=== PATIENT | male | born 1935 | race Caucasian/White ===

== ENCOUNTER 2016-12-15 08:09 | Inpatient (IN) | payer MEDICARE, BC ==
[2016-12-15 08:31] LABS: Glucose,Whole Blood 242 mg/dL (75-99)
[2016-12-15] MEDS ORDERED: SODIUM CHLORIDE 0.9% 1,000 ML IV ONE ×2 (08:35→12:35)
--- NOTE | 2016-12-15 08:39 | ED ---
General Adult HPI - General Chief complaint: Altered Mental Status Stated complaint: altered mental status Time Seen by Provider: 12/15/16 08:20 Source: family, RN notes reviewed Mode of arrival: EMS Limitations: altered mental status - History of Present Illness Initial comments: This is a 81-year-old male who comes to the emergency department via EMS with his son. Son states that he is here because he is altered mentally. Son states 2 weeks ago he stopped drinking cold turkey. He usually drinks a fifth a day plus a lot of beer and he stopped cold turkey on good Friday. Son states since that time he's become more more altered and weaker and weaker. He states he can barely walk around the house at this point. Patient is confused does not know what day it is does not understand why they come to the hospital. Son states he is also not eating or drinking and has lost about 20 pounds in a period of time. Son states he has not had any falls that he knows of. Patient has not had any difficulty breathing there's been no fevers there's been no vomiting or diarrhea that he knows of. - Related Data Home Medications Medication Instructions Recorded Confirmed Gabapentin [Neurontin] 100 mg PO BID 12/21/13 12/15/16 Isosorbide Mononitrate [Imdur] 30 mg PO DAILY 12/21/13 12/15/16 glyBURIDE [Diabeta] 2.5 mg PO AC-BID 12/21/13 12/15/16 Aspirin EC [Ecotrin Low Dose] 81 mg PO DAILY 05/29/16 12/15/16 Vit A,C & E/Lutein/Minerals 1 tab PO DAILY 05/29/16 12/15/16 [Ocuvite with Lutein Tablet] amLODIPine BESYLATE/BENAZEPRIL 1 cap PO DAILY 05/29/16 12/15/16 [Lotrel 10-40 mg Capsule] Allergies Allergy/AdvReac Type Severity Reaction Status Date / Time sulfamethoxazole Allergy Severe Anaphylaxis Verified 12/15/16 09:06 [From Bactrim] trimethoprim [From Bactrim] Allergy Severe Anaphylaxis Verified 12/15/16 09:06 Review of Systems ROS Statement: Those systems with pertinent positive or pertinent negative responses have been documented in the HPI. ROS Other: All systems not noted in ROS Statement are negative. Past Medical History Past Medical History: Coronary Artery Disease (CAD), Chest Pain / Angina, Diabetes Mellitus, Deep Vein Thrombosis (DVT), Eye Disorder, GERD/Reflux, Hearing Disorder / Deafness, Memory Impairment, Myocardial Infarction ([place]), Osteoarthritis (OA), Pneumonia, Prostate Disorder, Vascular Disorder Additional Past Medical History / Comment(s): neuropathy, sinusitis, hernia Last Myocardial Infarction Date:: 11/28/13 History of Any Multi-Drug Resistant Organisms: None Reported Past Surgical History: Hernia Repair Additional Past Surgical History / Comment(s): 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 toe right foot, vein surgery both legs for phlebitis Past Anesthesia/Blood Transfusion Reactions: No Reported Reaction Past Psychological History: No Psychological Hx Reported Smoking Status: Former smoker Past Alcohol Use History: Abuse, Daily Past Drug Use History: None Reported - Past Family History Mother Family Medical History: Cancer Father Family Medical History: Unable to Obtain General Exam - General Exam Comments Initial Comments: GENERAL: Patient is well-developed and well-nourished. Patient is nontoxic and well- hydrated and is in no acute distress. ENT: Neck is soft and supple. No significant lymphadenopathy is noted. Oropharynx is clear. Dry mucous membranes. Neck has full range of motion without eliciting any pain. EYES: The sclera were anicteric and conjunctiva were pink and moist. Extraocular movements were intact and pupils were equal round and reactive to light. Eyelids were unremarkable. PULMONARY: Unlabored respirations. Good breath sounds bilaterally. No audible rales rhonchi or wheezing was noted. CARDIOVASCULAR: There is a regular rate and rhythm without any murmurs gallops or rubs. ABDOMEN: Soft and nontender with normal bowel sounds. No palpable organomegaly was noted. There is no palpable pulsatile mass. SKIN: Skin is clear with no lesions or rashes and otherwise unremarkable. NEUROLOGIC: Patient is alert and oriented 1. Cranial nerves II through XII are grossly intact. Motor and sensory are also intact. Normal speech, volume and content. Symmetrical smile. MUSCULOSKELETAL: Normal extremities with adequate strength and full range of motion. No lower extremity swelling or edema. No calf tenderness. LYMPHATICS: No significant lymphadenopathy is noted PSYCHIATRIC: Unable to evaluate patient does answer questions accurately. Limitations: altered mental status Course Vital Signs 12/15/16 12/15/16 12/15/16 08:18 09:06 10:05 Temperature 97.1 F L Pulse Rate 70 68 60 Respiratory 18 18 18 Rate Blood Pressure 152/70 175/77 170/77 O2 Sat by Pulse 95 99 99 Oximetry 12/15/16 12:09 Temperature 97.9 F Pulse Rate 96 Respiratory 18 Rate Blood Pressure 158/77 O2 Sat by Pulse 98 Oximetry Procedures - Catheter Insertion (Urinary) Indications: monitor urine output Prophylactic Antibiotics Given: No Bladder Scan/US before Catheterization: No Preparation: Povidone-Iodine Type of Catheter Inserted: 2 way Catheter [place] Size: 18 Catheter Balloon Size (mLs): 10 Results: successfully catheterized-immediate flow Patient Tolerated Procedure: well Complications: pain Medical Decision Making - Medical Decision Making EKG shows a sinus rhythm at 71 bpm MS interval is prolonged at 160 QRS is 88 QT interval 352 QTC is 382. Patient's EKG shows no ST segment elevation or depression or T wave abnormalities are noted Chest x-ray shows a widened mediastinum Patient's CAT scan shows findings compatible with a neoplastic process extensive conglomerate of mediastinal lymphadenopathy extending from the thoracic and went down through the subcarinal and paraesophageal region measuring up to 13.4 cm there is also bilateral subclavicular prevascular space and left lower paraesophageal lymphadenopathy there is also a left lower lobe pulmonary mass and a couple lower lobe metastatic pulmonary nodules osseous metastatic disease with soft tissue replacing the T8 vertebral body She was given a banana bag because of his alcoholism. Patient also was given fluids because of the high calcium. I spoke with Dr. Rahman she agreed to admit the patient I admitted the patient I consult with oncology - Lab Data Result diagrams: 12/15/16 08:25 12/15/16 09:55 Lab Results 12/15/16 12/15/16 12/15/16 Range/Units 08:25 08:25 08:25 WBC 10.0 (3.8-10.6) k/uL RBC 5.81 (4.30-5.90) m/uL Hgb 17.1 (13.0-17.5) gm/dL Hct 50.5 (39.0-53.0) % MCV 87.0 (80.0-100.0) fL MCH 29.4 (25.0-35.0) pg MCHC 33.8 (31.0-37.0) g/dL RDW 13.2 (11.5-15.5) % Plt Count 189 (150-450) k/uL Neutrophils % 82 % Lymphocytes % 12 % Monocytes % 4 % Eosinophils % 1 % Basophils % 1 % Neutrophils # 8.2 H (1.3-7.7) k/uL Lymphocytes # 1.2 (1.0-4.8) k/uL Monocytes # 0.4 (0-1.0) k/uL Eosinophils # 0.1 (0-0.7) k/uL Basophils # 0.1 (0-0.2) k/uL PT 11.0 (9.0-12.0) sec INR 1.1 (<1.1) APTT 20.3 L (22.0-30.0) sec Sodium (137-145) mmol/L Potassium (3.5-5.1) mmol/L Chloride (98-107) mmol/L Carbon Dioxide (22-30) mmol/L Anion Gap mmol/L BUN (9-20) mg/dL Creatinine (0.66-1.25) mg/dL Est GFR (MDRD) Af Amer (>60 ml/min/1.73 sqM) Est GFR (MDRD) Non-Af (>60 ml/min/1.73 sqM) Glucose (74-99) mg/dL POC Glucose (mg/dL) (75-99) mg/dL POC Glu Valuation Consultant ID Calcium (8.4-10.2) mg/dL Magnesium (1.6-2.3) mg/dL Total Bilirubin (0.2-1.3) mg/dL AST (17-59) U/L ALT (21-72) U/L Alkaline Phosphatase (38-126) U/L Ammonia (<30) umol/L Total Creatine Kinase 40 L (55-170) U/L CK-MB (CK-2) 1.0 (0.0-2.4) ng/mL CK-MB (CK-2) Rel Index 2.5 Troponin I <0.012 (0.000-0.034) ng/mL Total Protein (6.3-8.2) g/dL Albumin (3.5-5.0) g/dL Urine Color Urine Appearance (Clear) Urine pH (5.0-8.0) Ur Specific [place] (1.001-1.035) Urine Protein (Negative) Urine Glucose (UA) (Negative) Urine Ketones (Negative) Urine Blood (Negative) Urine Nitrite (Negative) Urine Bilirubin (Negative) Urine Urobilinogen (<2.0) mg/dL Ur Leukocyte Esterase (Negative) Urine RBC (0-5) /hpf Urine WBC (0-5) /hpf Urine Bacteria (None) /hpf Urine Mucus (None) /hpf Urine Opiates Screen (NotDetected) Ur Oxycodone Screen (NotDetected) Urine Methadone Screen (NotDetected) Ur Propoxyphene Screen (NotDetected) Ur Barbiturates Screen (NotDetected) U Tricyclic Antidepress (NotDetected) Ur Phencyclidine Scrn (NotDetected) Ur Amphetamines Screen (NotDetected) U Methamphetamines Scrn (NotDetected) U Benzodiazepines Scrn (NotDetected) Urine Cocaine Screen (NotDetected) U Marijuana (THC) Screen (NotDetected) 12/15/16 12/15/16 12/15/16 Range/Units 08:30 09:04 09:55 WBC (3.8-10.6) k/uL RBC (4.30-5.90) m/uL Hgb (13.0-17.5) gm/dL Hct (39.0-53.0) % MCV (80.0-100.0) fL MCH (25.0-35.0) pg MCHC (31.0-37.0) g/dL RDW (11.5-15.5) % Plt Count (150-450) k/uL Neutrophils % % Lymphocytes % % Monocytes % % Eosinophils % % Basophils % % Neutrophils # (1.3-7.7) k/uL Lymphocytes # (1.0-4.8) k/uL Monocytes # (0-1.0) k/uL Eosinophils # (0-0.7) k/uL Basophils # (0-0.2) k/uL PT (9.0-12.0) sec INR (<1.1) APTT (22.0-30.0) sec Sodium (137-145) mmol/L Potassium (3.5-5.1) mmol/L Chloride (98-107) mmol/L Carbon Dioxide (22-30) mmol/L Anion Gap mmol/L BUN (9-20) mg/dL Creatinine (0.66-1.25) mg/dL Est GFR (MDRD) Af Amer (>60 ml/min/1.73 sqM) Est GFR (MDRD) Non-Af (>60 ml/min/1.73 sqM) Glucose (74-99) mg/dL POC Glucose (mg/dL) 242 H (75-99) mg/dL POC Glu Valuation Consultant ID [place], Angella Calcium (8.4-10.2) mg/dL Magnesium (1.6-2.3) mg/dL Total Bilirubin (0.2-1.3) mg/dL AST (17-59) U/L ALT (21-72) U/L Alkaline Phosphatase (38-126) U/L Ammonia <9 (<30) umol/L Total Creatine Kinase (55-170) U/L CK-MB (CK-2) (0.0-2.4) ng/mL CK-MB (CK-2) Rel Index Troponin I (0.000-0.034) ng/mL Total Protein (6.3-8.2) g/dL Albumin (3.5-5.0) g/dL Urine Color Yellow Urine Appearance Clear (Clear) Urine pH 5.0 (5.0-8.0) Ur Specific [place] 1.021 (1.001-1.035) Urine Protein 1+ H (Negative) Urine Glucose (UA) 2+ H (Negative) Urine Ketones Trace H (Negative) Urine Blood Moderate H (Negative) Urine Nitrite Negative (Negative) Urine Bilirubin Negative (Negative) Urine Urobilinogen <2.0 (<2.0) mg/dL Ur Leukocyte Esterase Negative (Negative) Urine RBC 21 H (0-5) /hpf Urine WBC 4 (0-5) /hpf Urine Bacteria Rare H (None) /hpf Urine Mucus Rare H (None) /hpf Urine Opiates Screen Not Detected (NotDetected) Ur Oxycodone Screen Not Detected (NotDetected) Urine Methadone Screen Not Detected (NotDetected) Ur Propoxyphene Screen Not Detected (NotDetected) Ur Barbiturates Screen Not Detected (NotDetected) U Tricyclic Antidepress Not Detected (NotDetected) Ur Phencyclidine Scrn Not Detected (NotDetected) Ur Amphetamines Screen Not Detected (NotDetected) U Methamphetamines Scrn Not Detected (NotDetected) U Benzodiazepines Scrn Not Detected (NotDetected) Urine Cocaine Screen Not Detected (NotDetected) U Marijuana (THC) Screen Not Detected (NotDetected) 12/15/16 Range/Units 09:55 WBC (3.8-10.6) k/uL RBC (4.30-5.90) m/uL Hgb (13.0-17.5) gm/dL Hct (39.0-53.0) % MCV (80.0-100.0) fL MCH (25.0-35.0) pg MCHC (31.0-37.0) g/dL RDW (11.5-15.5) % Plt Count (150-450) k/uL Neutrophils % % Lymphocytes % % Monocytes % % Eosinophils % % Basophils % % Neutrophils # (1.3-7.7) k/uL Lymphocytes # (1.0-4.8) k/uL Monocytes # (0-1.0) k/uL Eosinophils # (0-0.7) k/uL Basophils # (0-0.2) k/uL PT (9.0-12.0) sec INR (<1.1) APTT (22.0-30.0) sec Sodium 142 (137-145) mmol/L Potassium 4.4 (3.5-5.1) mmol/L Chloride 107 (98-107) mmol/L Carbon Dioxide 27 (22-30) mmol/L Anion Gap 8 mmol/L BUN 47 H (9-20) mg/dL Creatinine 0.85 (0.66-1.25) mg/dL Est GFR (MDRD) Af Amer >60 (>60 ml/min/1.73 sqM) Est GFR (MDRD) Non-Af >60 (>60 ml/min/1.73 sqM) Glucose 231 H (74-99) mg/dL POC Glucose (mg/dL) (75-99) mg/dL POC Glu Valuation Consultant ID Calcium 13.8 H* (8.4-10.2) mg/dL Magnesium 1.9 (1.6-2.3) mg/dL Total Bilirubin 1.4 H (0.2-1.3) mg/dL AST 21 (17-59) U/L ALT 24 (21-72) U/L Alkaline Phosphatase 136 H (38-126) U/L Ammonia (<30) umol/L Total Creatine Kinase (55-170) U/L CK-MB (CK-2) (0.0-2.4) ng/mL CK-MB (CK-2) Rel Index Troponin I (0.000-0.034) ng/mL Total Protein 7.5 (6.3-8.2) g/dL Albumin 3.8 (3.5-5.0) g/dL Urine Color Urine Appearance (Clear) Urine pH (5.0-8.0) Ur Specific [place] (1.001-1.035) Urine Protein (Negative) Urine Glucose (UA) (Negative) Urine Ketones (Negative) Urine Blood (Negative) Urine Nitrite (Negative) Urine Bilirubin (Negative) Urine Urobilinogen (<2.0) mg/dL Ur Leukocyte Esterase (Negative) Urine RBC (0-5) /hpf Urine WBC (0-5) /hpf Urine Bacteria (None) /hpf Urine Mucus (None) /hpf Urine Opiates Screen (NotDetected) Ur Oxycodone Screen (NotDetected) Urine Methadone Screen (NotDetected) Ur Propoxyphene Screen (NotDetected) Ur Barbiturates Screen (NotDetected) U Tricyclic Antidepress (NotDetected) Ur Phencyclidine Scrn (NotDetected) Ur Amphetamines Screen (NotDetected) U Methamphetamines Scrn (NotDetected) U Benzodiazepines Scrn (NotDetected) Urine Cocaine Screen (NotDetected) U Marijuana (THC) Screen (NotDetected) Disposition Clinical Impression: Metastatic cancer to lung, Altered mental status, Hypercalcemia Disposition: ADMITTED IP TO THIS [facility] Time of Disposition: 12:33
[2016-12-15] MEDS ORDERED: SODIUM CHLORIDE 0.9% 1,000 ML with MVI, ADULT NO.4 WITH VIT K 10 ML, THIAMINE 100 MG, F... IV ONE ×4 (08:45)
[2016-12-15 09:13] LABS: Basophils # (A) 0.1 k/uL (0-0.2); Basophils % (A) 1 %; CH 30.1; CHCM 34.8; Eosinophils # (A) 0.1 k/uL (0-0.7); Eosinophils % (A) 1 %; HCT 50.5 % (39.0-53.0); HDW 3.21; HGB 17.1 gm/dL (13.0-17.5); Luc # (Auto) 0.13; Luc % (Auto) 1; Lymphocytes # (A) 1.2 k/uL (1.0-4.8); Lymphocytes % (A) 12 %; MCH 29.4 pg (25.0-35.0); MCHC 33.8 g/dL (31.0-37.0); Mean Platelet Volume 7.3; Monocytes # (A) 0.4 k/uL (0-1.0); Monocytes % (A) 4 %; Neutrophils # (A) 8.2 k/uL (1.3-7.7); Neutrophils % (A) 82 %; RBC 5.81 m/uL (4.30-5.90); RDW 13.2 % (11.5-15.5); WBC (Perox) 10.24
[2016-12-15 09:15] LABS: Appearance,Urine Clear (Clear); Bacteria,Urine Rare /hpf; Bilirubin,Urine Negative (Negative); Glucose,Urine (UA) 2+ (Negative); Ketones,Urine Trace (Negative); Leukocyte Esterase,Urine Negative (Negative); Mucus,Urine Rare /hpf; Nitrite,Urine Negative (Negative); Particle Count 3510; Protein,Urine 1+ (Negative); RBC,Urine 21 /hpf (0-5); Specific Gravity,Urine 1.021 (1.001-1.035); UA Billing (MACRO vs. MICRO) MICRO; Urobilinogen,Urine <2.0 mg/dL (<2.0); WBC,Urine 4 /hpf (0-5)
[2016-12-15 09:22] LABS: INR 1.1 (<1.1); Partial Thromboplastin Time 20.3 sec (22.0-30.0)
[2016-12-15 09:37] LABS: Creatine Kinase 40 U/L (55-170)
--- NOTE | 2016-12-15 09:48 | CT ---
EXAMINATION TYPE: CT brain wo con DATE OF EXAM: 12/15/2016 9:39 AM HISTORY: Altered mental changes, history of dementia. CT DLP: 1072.3 mGycm. Automated Exposure Contr ol for Dose Reduction was Utilized. TECHNIQUE: CT scan of the head is performed without contrast. COMPARISON: CT brain May 29, 2016. FINDINGS: There is no acute intracranial hemorrhage or midline shift identified. There is diffuse v entricular and sulcal prominence consistent with diffuse age-related cerebral atrophy. There is low- attenuation in the periventricular white matter consistent with chronic small vessel ischemic change. Mild to moderate mucosal thickening visualized portion of right maxillary sinus remains present. Th e globes are intact and the remainder visualized sinuses are clear. Soft tissue density bilateral e xternal auditory canals is felt to reflect cerumen similar to prior study. IMPRESSION: No acute intracranial hemorrhage or midline shift. There is mild to moderate diffuse ag e-related cerebral atrophy and chronic small vessel ischemic change redemonstrated without significan t interval change.
[2016-12-15 09:50] LABS: Troponin I <0.012 ng/mL (0.000-0.034)
[2016-12-15 10:14] LABS: ALT 24 U/L (21-72); AST 21 U/L (17-59); Alkaline Phosphatase 136 U/L (38-126); Anion Gap 8 mmol/L; Blood Urea Nitrogen 47 mg/dL (9-20); Carbon Dioxide 27 mmol/L (22-30); Chloride 107 mmol/L (98-107); Glucose 231 mg/dL (74-99); Magnesium 1.9 mg/dL (1.6-2.3); Non-African American GFR(MDRD) >60 (>60 ml/min/1.73 sqM); Potassium 4.4 mmol/L (3.5-5.1); Sodium 142 mmol/L (137-145); Total Bilirubin 1.4 mg/dL (0.2-1.3); Total Protein 7.5 g/dL (6.3-8.2)
--- NOTE | 2016-12-15 10:15 | XR ---
EXAMINATION TYPE: XR chest 2V DATE OF EXAM: 12/15/2016 9:55 AM COMPARISON: 11/29/2013 HISTORY: 81-year-old male altered mental status, confusion TECHNIQUE: Frontal and lateral views FINDINGS: Heart remains upper limits of normal in size. Pulmonary vasculature within normal limits. Mild diffus e interstitial prominence is chronic., Similar to prior. There is increased opacity along the medial right suprahilar region. No pleural effusion. IMPRESSION: Increased opacity along the medial right suprahilar region could be projectional. Correlate for possi ble infiltrate. Follow up after any potential treatment to reassess. If the finding persists, contras t-enhanced CT chest can be performed.
[2016-12-15 10:20] LABS: Calcium 13.8 mg/dL (8.4-10.2)
[2016-12-15] MEDS ORDERED: RX INFO: IV CONTRAST WAS GIVEN 1 EACH MISC MISCELLANE PRN (10:25)
--- NOTE | 2016-12-15 12:12 | CT ---
EXAMINATION TYPE: CT chest w con DATE OF EXAM: 12/15/2016 11:53 AM COMPARISON: 11/27/2013 HISTORY: 81-year-old male with pain and Cough TECHNIQUE: Contiguous axial scanning of the chest after the administration of 100 mL of Omnipaque 300 . Coronal/sagittal reconstructions performed. CT DLP: 499.5mGycm. Automatic exposure control utilized for a dose reduction. FINDINGS: The heart is borderline enlarged without pericardial effusion. Extensive coronary vessel calcificatio ns are present and are a marker for coronary artery disease. Ascending aorta is ectatic at 3.8 cm with conventional arch vessel branching anatomy and mild atheros clerotic calcifications throughout. There is mildly enlarged caliber to the main right and left pulmonary arteries that 2.6 cm each. There is bilateral supraclavicular lymphadenopathy measuring up to 2.1 cm and conglomerate mediastina l lymphadenopathy extending from the thoracic inlet, to the right hilum, down through the subcarinal and paraesophageal level. The conglomerate duy mass measures up to 13.4 cm craniocaudal, 7.7 cm wid e, and up to 6.0 cm AP. There is prevascular space lymphadenopathy measuring up to 1.6 cm and lower l eft paraesophageal lymphadenopathy measuring up to 1.9 cm. Mild narrowing of the right mainstem bronchus, right upper lobe bronchus, bronchus intermedius could be secondary to extrinsic mass effect. Lobulated mass within the superior segment right lower lobe contiguous with the infrahilar region brian sures 4.8 x 2.5 cm. Additional peripheral pulmonary nodule in the right lower lobe measures 7 mm and is new. A subtle 3 m m pulmonary nodule at the left base is noted. Nodular thickening to the left adrenal gland appears 7 present on 11/27/2013. Prominent dependent atelectasis is present. No herminia consolidation or pleural effusion. Bones: Endplate spondylosis throughout the thoracic spine. Soft tissue replacement of the T8 vertebra l body with some thinning and erosion of the superior and inferior endplates. IMPRESSION: 1. The radiographic finding is compatible with neoplastic process. There is extensive conglomerate me diastinal lymphadenopathy extending from the thoracic inlet down through the subcarinal and paraesoph ageal region measuring up to 13.4 cm craniocaudal. Additional bilateral supraclavicular, prevascular space, and lower left paraesophageal lymphadenopathy is present. Small cell lung cancer is high in th e differential. Extrinsic mass effect mildly narrows the right-sided airways. 2. 4.8 cm superior segment left lower lobe pulmonary mass and a couple lower lobe metastatic pulmonar y nodules measuring up to 7 mm. 3. Osseous metastatic disease with soft tissue replacing the T8 vertebral body. 4. Nodular thickening of the left adrenal gland appears to be chronic dating back to 11/27/2013.
[2016-12-15] MEDS ORDERED: ENALAPRILAT 1.25 MG/ML 1 ML VIAL IVP STA (13:08)
[2016-12-15] MEDS ORDERED: LORazepam 2 MG/ML SYRINGE IV STA ×2 (13:38→14:05)
[2016-12-15] MEDS ORDERED: LORazepam 2 MG/ML SYRINGE IV PRN ×2 (15:30)
[2016-12-15] MEDS ORDERED: hydrALAZINE HCL 20 MG/ML 1 ML VIAL IVP PRN (15:31)
--- NOTE | 2016-12-15 15:34 | P.CNPUL ---
History of Present Illness Consult date: 12/15/16 Reason for consult: lung mass, abnormal CXR/CT Chief complaint: Altered mental status History of present illness: This is an 81-year-old gentleman who presented emergency department for altered mental status. The patient's and son are present to provide further history. The patient apparently drinks a fifth a day plus beer. The patient apparently stopped drinking cold turkey 2 weeks ago. Per the patient's he did have a few drinks this past week as well. Per the family the patient has lost 20 pounds in over 2 weeks. He has been able to eat or drink anything. The patient is extremely somnolent at this time. He is nonverbal and not answering questions. He is just staring off into space. In the emergency room the patient had a chest x-ray which showed right medial suprahilar opacity. He underwent subsequent CT of the chest. Which showed mild cardiomegaly, extensive conglomerate mediastinal lymphadenopathy, bilateral supraclavicular lymphadenopathy, mass effect on the right mainstem bronchus, osseous metastatic disease with soft tissue replacing T8 vertebral body. The patient is a former smoker. He apparently quit 20 years ago. He used to smoke 2 packs per day for 37 years. Review of Systems All systems: negative Past Medical History Past Medical History: Coronary Artery Disease (CAD), Chest Pain / Angina, Diabetes Mellitus, Deep Vein Thrombosis (DVT), Eye Disorder, GERD/Reflux, Hearing Disorder / Deafness, Memory Impairment, Myocardial Infarction ([place]), Osteoarthritis (OA), Pneumonia, Prostate Disorder, Vascular Disorder Additional Past Medical History / Comment(s): neuropathy, sinusitis, hernia Last Myocardial Infarction Date:: 11/28/13 History of Any Multi-Drug Resistant Organisms: None Reported Past Surgical History: Hernia Repair Additional Past Surgical History / Comment(s): 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 toe right foot, vein surgery both legs for phlebitis Past Anesthesia/Blood Transfusion Reactions: No Reported Reaction Past Psychological History: No Psychological Hx Reported Smoking Status: Former smoker Past Alcohol Use History: Abuse, Daily Past Drug Use History: None Reported - Past Family History Mother Family Medical History: Cancer Father Family Medical History: Unable to Obtain Medications and Allergies Home Medications Medication Instructions Recorded Confirmed Type Gabapentin [Neurontin] 100 mg PO BID 12/21/13 12/15/16 History Isosorbide Mononitrate [Imdur] 30 mg PO DAILY 12/21/13 12/15/16 History glyBURIDE [Diabeta] 2.5 mg PO AC-BID 12/21/13 12/15/16 History Aspirin EC [Ecotrin Low Dose] 81 mg PO DAILY 05/29/16 12/15/16 History Vit A,C & E/Lutein/Minerals 1 tab PO DAILY 05/29/16 12/15/16 History [Ocuvite with Lutein Tablet] amLODIPine BESYLATE/BENAZEPRIL 1 cap PO DAILY 05/29/16 12/15/16 History [Lotrel 10-40 mg Capsule] Allergies Allergy/AdvReac Type Severity Reaction Status Date / Time sulfamethoxazole Allergy Severe Anaphylaxis Verified 12/15/16 09:06 [From Bactrim] trimethoprim [From Bactrim] Allergy Severe Anaphylaxis Verified 12/15/16 09:06 Physical Exam Osteopathic Statement: *. No significant issues noted on an osteopathic structural exam other than those noted in the History and Physical/Consult. Vitals: Vital Signs Pulse Resp BP Pulse Ox 12/15/16 14:09 85 18 184/91 99 12/15/16 12:55 176/82 Gen.: Patient is somnolent and appears to be actively going through DTs Cardiovascular: Regular rate and rhythm, S1/S2 Lungs: Diminished breath sounds bilaterally no wheezes rales or rhonchi Abdomen: Soft nontender nondistended positive bowel sounds Extremities no edema Results - Laboratory Findings CBC and BMP: 12/15/16 08:25 12/15/16 09:55 PT/INR, D-dimer PT 11.0 sec (9.0-12.0) 12/15/16 08:25 INR 1.1 (<1.1) 12/15/16 08:25 - Diagnostic Findings Chest x-ray: report reviewed, image reviewed CT scan - chest: report reviewed, image reviewed Assessment and Plan Plan: Toxic metabolic encephalopathy Active delirium tremens Extensive conglomerate mediastinal lymphadenopathy Extrinsic mass effect on the right mainstem bronchus Left lower lobe pulmonary mass Osseous metastatic disease of T8 vertebral body Alcohol abuse Former tobacco abuse Starvation ketosis 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 Hyperglycemia Failure to thrive O2 to maintain saturation greater than or equal to 88% CIWA protocol Banana bag daily We will check CT of the abdomen and pelvis, bone scan We will need to discuss with interventional radiology the best place for biopsy. It appears at this time as the least invasive place would be the supraclavicular lymphadenopathy. Patient is too unstable for bronchoscopy at this time IV fluid hydration Consult oncology Swallow evaluation can be done when patient's mental status improves, NPO for now Check ionized calcium GI and DVT prophylaxis Family is updated on findings and patient's condition. All questions are answered and they are agreeable to the plan of care at this time.
[2016-12-15] MEDS: amLODIPine 10 MG TAB PO SCH (15:36)
[2016-12-15] MEDS: ASPIRIN 81 MG CHEW PO SCH (15:36)
[2016-12-15 16:04] VITALS: BMI 22.4
--- NOTE | 2016-12-15 17:09 | CT ---
EXAMINATION TYPE: CT abdomen pelvis wo con DATE OF EXAM: 12/15/2016 4:40 PM COMPARISON: Correlation CT chest 12/15/2016 HISTORY: 81-year-old male Assess for metastases. CT DLP: 609.20 mGycm. Automated exposure control for dose reduction was used. TECHNIQUE: Contiguous axial scanning of the abdomen and pelvis without IV contrast. Coronal and sagit shane reconstructions performed. FINDINGS: The thoracic findings were reported separately, earlier today. There may be developing trace effusion s. Lack of IV contrast limits assessment of the solid abdominal viscera, lymph nodes, and vascular struc tures. Noncontrast appearance of the liver, gallbladder, kidneys, and pancreas show no gross abnormality. Mild bilateral perinephric stranding probably senescent change. There is some residual contrast seen being excreted by the kidneys. The spleen is upper limits of normal in size at 13.6 cm. Mild thickening of the right adrenal gland without discrete nodularity. Nodular thickening of the lef t adrenal gland appears to have been present on the 11/27/2013 CT. Moderate atherosclerotic changes throughout the abdominal aorta and iliac arteries. Normal appendix. No dilated small bowel, free fluid, or free air. No mesenteric or retroperitoneal ly mphadenopathy seen. Scattered mild stool. There is diverticulosis of the junction of the descending and sigmoid colon wit hout evidence for acute diverticulitis. There is thick walled and trabeculated bladder filled with contrast. A Ferrer catheter is also in plac e. Some nondependent bladder likely relates to instrumentation. Prostate gland is enlarged measuring 5.7 cm wide. Moderate stool within the rectum. No abnormal fluid collection in the pelvis or pelvic lymphadenopathy seen. Bones: There is a lytic destructive lesion within the left iliac bone measuring approximately 4.8 x 5 .1 cm extending into the iliacus and gluteus minimus soft tissues. This may be the easiest site for p ercutaneous tissue sampling. T8 vertebral body destructive soft tissue lesion again demonstrated. IMPRESSION: 1. An additional osseous metastatic focus measuring 5.1 cm destroying the central portion of the lef t iliac bone with extraosseous soft tissue extension. This may serve as the easiest site for percutan eous tissue sampling. 2. The lack of IV contrast diminishes the sensitivity of the exam. 3. Again, nodularity of the left adrenal gland appears to have been present back to the 11/27/2013 CT scan. 4. Prostatomegaly (5.7 cm wide) with thickened and trabeculated bladder wall suggesting chronic blad rachel outlet obstruction and BPH.
[2016-12-15 18:04] LABS: Glucose,Whole Blood 124 mg/dL (75-99)
[2016-12-15] MEDS: INSULIN LISPRO (humaLOG) 300 UNIT/3 ML VIAL SQ SCH ×2 (18:04→21:58)
[2016-12-15] MEDS: HEPARIN SODIUM,PORCINE 5,000 UNIT/ML 1 ML VIAL SQ SCH ×2 (18:05→23:31)
[2016-12-15] MEDS: 1: MVI, ADULT NO.4 WITH VIT K 10 ML, THIAMINE 100 MG, FOLIC ACID 1 MG in SODIUM CHLORIDE IV SCH ×8 (18:06→21:01)
[2016-12-15] MEDS ORDERED: SODIUM CHLORIDE 0.9% 1,000 ML BAG ONE (18:06)
--- NOTE | 2016-12-15 19:27 | P.HPIM ---
History of Present Illness H&P Date: 12/15/16 Chief Complaint: Mental status changes This is a pleasant 81-year-old lady patient of Dr. shantanu yoo. He has underlying history of diabetes mellitus type 2, CAD, BPH, who has chronic alcoholism. Apparently he is at baseline until he had quit alcohol completely 2 weeks ago December 04 for unknown reasons, patient has not had any blood, since then including beer. He was noticed by family to have altered mentation to include hallucinations this will, and auditory hallucinations, diminished appetite and increasing weakness. Patient had not eating for the past one to 4 hours, and only has slept 24 hours within the past 7 days, weight loss of 20 pounds, In the emergency room he was seen secondary to the acute dehydration, he was found to be mentally altered with hypercalcemia, dehydration, CAT scan of the chest showed significant abnormality include of 4.8 cm left upper lobe pulmonary mass with lower lobe metastatic pulmonary nodules up to 7 mm, conglomerate mediastinal lymph node extending from thoracic inlet down to subcarina and paraesophageal region measuring 13.4 cm craniocaudal small cell carcinoma is high in the differential, extrinsic mass effect mild did not O's right-sided airway or she is metastatic disease with soft tissue replacing T8 vertebral body brain CT shows mild to moderate diffuse age-related cerebral atrophy without any significant interval changes epi noted CT abdomen and pelvis shows additional all she is metastatic lesion 5.1 cm destroying the central portion of the left iliac bone with extra osseous soft tissue extension him a also 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 Yanes and Dr. Morales. Patient was started on ciwa protocol, Seroquel 25 hs for hallucinations, and IV Aredia for hypercalcemia IV Lasix for forced diuresis , iv hydration Review of Systems ROS unobtainable: due to mental status Constitutional: Reports weight loss Ears, nose, mouth and throat: Reports as per HPI Cardiovascular: Reports as per HPI Respiratory: Reports as per HPI Gastrointestinal: Reports as per HPI Genitourinary: Reports as per HPI Musculoskeletal: Reports as per HPI Integumentary: Reports as per HPI Neurological: Reports as per HPI, Reports memory loss Psychiatric: Reports anxiety, Reports change in sleep habits, Reports confusion , Reports disorientation, Reports hallucinations, Reports insomnia, Reports irritability, Reports mood swings, Reports sleep disturbances, Denies as per HPI , Denies anhedonia, Denies anxiety attacks, Denies change in appetite, Denies change in libido, Denies depression, Denies difficulty concentrating, Denies hopelessness, Denies hypersomnia, Denies memory loss, Denies paranoia, Denies sadness/tearfulness, Denies suicidal ideation Endocrine: Reports as per HPI, Denies cold intolerance, Denies deepening of the voice, Denies excessive sweating, Denies excessive thirst, Denies fatigue, Denies flushing, Denies heat intolerance, Denies high blood sugars, Denies increase in ring/shoe/hat size, Denies low blood sugars, Denies nocturia, Denies palpitations, Denies polydipsia, Denies polyphagia, Denies polyuria, Denies proptosis, Denies recent glucocorticoid use, Denies thyroid mass, Denies weight change Hematologic/Lymphatic: Denies as per HPI, Denies easy bleeding, Denies easy bruising, Denies lymphadenopathy, Denies lymphedema, Denies thrombophilia Allergic/Immunologic: Reports as per HPI, Denies allergic rhinitis, Denies anaphylaxis, Denies angioedema, Denies gluten intolerance, Denies persistent infections, Denies seasonal allergies, Denies urticaria, Denies wheezing Past Medical History Past Medical History: Coronary Artery Disease (CAD), Chest Pain / Angina, Diabetes Mellitus, Deep Vein Thrombosis (DVT), Eye Disorder, GERD/Reflux, Hearing Disorder / Deafness, Memory Impairment, Myocardial Infarction (LA), Osteoarthritis (OA), Pneumonia, Prostate Disorder, Vascular Disorder Additional Past Medical History / Comment(s): neuropathy, sinusitis, hernia Last Myocardial Infarction Date:: 11/28/13 History of Any Multi-Drug Resistant Organisms: None Reported Past Surgical History: Hernia Repair Additional Past Surgical History / Comment(s): 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 toe right foot, vein surgery both legs for phlebitis Past Anesthesia/Blood Transfusion Reactions: No Reported Reaction Date of Last Stent Placement:: November 2013 Past Psychological History: No Psychological Hx Reported Smoking Status: Former smoker Past Alcohol Use History: Abuse, Daily Past Drug Use History: None Reported - Past Family History Mother Family Medical History: Cancer Father Family Medical History: Congestive Heart Failure (CHF), CVA/TIA (Alcoholism) Sister(s) Family Medical History: Cancer (Cervical) Son(s) Family Medical History: No Reported History Medications and Allergies Home Medications Medication Instructions Recorded Confirmed Type Gabapentin [Neurontin] 100 mg PO BID 12/21/13 12/15/16 History Isosorbide Mononitrate [Imdur] 30 mg PO DAILY 12/21/13 12/15/16 History glyBURIDE [Diabeta] 2.5 mg PO AC-BID 12/21/13 12/15/16 History Aspirin EC [Ecotrin Low Dose] 81 mg PO DAILY 05/29/16 12/15/16 History Vit A,C & E/Lutein/Minerals 1 tab PO DAILY 05/29/16 12/15/16 History [Ocuvite with Lutein Tablet] amLODIPine BESYLATE/BENAZEPRIL 1 cap PO DAILY 05/29/16 12/15/16 History [Lotrel 10-40 mg Capsule] Allergies Allergy/AdvReac Type Severity Reaction Status Date / Time sulfamethoxazole Allergy Severe Anaphylaxis Verified 12/15/16 09:06 [From Bactrim] trimethoprim [From Bactrim] Allergy Severe Anaphylaxis Verified 12/15/16 09:06 Physical Exam Vitals: Vital Signs Temp Pulse Pulse Pulse Resp BP BP 12/15/16 15:00 97.6 F 68 81 20 159/81 12/15/16 14:09 85 18 184/91 12/15/16 12:55 176/82 BP Pulse Ox 12/15/16 15:00 170/85 97 12/15/16 14:09 99 12/15/16 12:55 Intake and Output 12/15/16 12/15/16 12/15/16 06:59 14:59 22:59 Intake Total 425 Output Total 350 Balance 75 Intake: Intake, IV Titration 425 Amount Sodium Chloride 0.9% 1, 425 000 ml @ 200 mls/hr IV . Q5H ONE Rx#:[id number] Output: Urine 350 Other: Voiding Method Indwelling Catheter Weight 67 kg 67 kg Patient Weight 12/16/16 06:59 Weight 67 kg - Constitutional General appearance: average body habitus, cooperative (To contact to recent Ativan use), no acute distress - EENT Eyes: anicteric sclerae, PERRLA, normal appearance ENT: NA/AT - Respiratory Respiratory: bilateral: CTA, diminished - Cardiovascular Rhythm: regular Heart sounds: normal: S1, S2 Abnormal Heart Sounds: no systolic murmur, no diastolic murmur, no rub, no S3 Gallop, no S4 Gallop, no click, no other - Gastrointestinal General gastrointestinal: normal bowel sounds, soft - Integumentary Integumentary: normal, normal turgor - Neurologic Neurologic: CNII-XII intact - Psychiatric Obtunded patient has a bilateral wrist restraints secondary to extreme agitation Results CBC & Chem 7: 12/15/16 08:25 12/15/16 09:55 Labs: Abnormal Lab Results - Last 24 Hours (Table) 12/15/16 12/15/16 Range/Units 16:48 17:52 POC Glucose (mg/dL) 124 H (75-99) mg/dL Ionized Calcium Yannick 7.7 H* (4.5-5.3) mg/dL Laboratory Results WBC 10.0 k/uL (3.8-10.6) 12/15/16 08:25 RBC 5.81 m/uL (4.30-5.90) 12/15/16 08:25 Hgb 17.1 gm/dL (13.0-17.5) 12/15/16 08:25 Hct 50.5 % (39.0-53.0) 12/15/16 08:25 MCV 87.0 fL (80.0-100.0) 12/15/16 08:25 MCH 29.4 pg (25.0-35.0) 12/15/16 08:25 MCHC 33.8 g/dL (31.0-37.0) 12/15/16 08:25 RDW 13.2 % (11.5-15.5) 12/15/16 08:25 Plt Count 189 k/uL (150-450) 12/15/16 08:25 Neutrophils % 82 % 12/15/16 08:25 Lymphocytes % 12 % 12/15/16 08:25 Monocytes % 4 % 12/15/16 08:25 Eosinophils % 1 % 12/15/16 08:25 Basophils % 1 % 12/15/16 08:25 Neutrophils # 8.2 k/uL (1.3-7.7) H 12/15/16 08:25 Lymphocytes # 1.2 k/uL (1.0-4.8) 12/15/16 08:25 Monocytes # 0.4 k/uL (0-1.0) 12/15/16 08:25 Eosinophils # 0.1 k/uL (0-0.7) 12/15/16 08:25 Basophils # 0.1 k/uL (0-0.2) 12/15/16 08:25 PT 11.0 sec (9.0-12.0) 12/15/16 08:25 INR 1.1 (<1.1) 12/15/16 08:25 APTT 20.3 sec (22.0-30.0) L 12/15/16 08:25 Sodium 142 mmol/L (137-145) 12/15/16 09:55 Potassium 4.4 mmol/L (3.5-5.1) 12/15/16 09:55 Chloride 107 mmol/L (98-107) 12/15/16 09:55 Carbon Dioxide 27 mmol/L (22-30) 12/15/16 09:55 Anion Gap 8 mmol/L 12/15/16 09:55 BUN 47 mg/dL (9-20) H 12/15/16 09:55 Creatinine 0.85 mg/dL (0.66-1.25) 12/15/16 09:55 Est GFR (MDRD) Af Amer >60 (>60 ml/min/1.73 sqM) 12/15/16 09:55 Est GFR (MDRD) Non-Af >60 (>60 ml/min/1.73 sqM) 12/15/16 09:55 Glucose 231 mg/dL (74-99) H 12/15/16 09:55 POC Glucose (mg/dL) 124 mg/dL (75-99) H 12/15/16 17:52 POC Glu Plan Checker ID Fay Nesbitt 12/15/16 17:52 Calcium 13.8 mg/dL (8.4-10.2) H* 12/15/16 09:55 Ionized Calcium Yannick 7.7 mg/dL (4.5-5.3) H* 12/15/16 16:48 Magnesium 1.9 mg/dL (1.6-2.3) 12/15/16 09:55 Total Bilirubin 1.4 mg/dL (0.2-1.3) H 12/15/16 09:55 AST 21 U/L (17-59) 12/15/16 09:55 ALT 24 U/L (21-72) 12/15/16 09:55 Alkaline Phosphatase 136 U/L (38-126) H 12/15/16 09:55 Ammonia <9 umol/L (<30) 12/15/16 09:55 Total Creatine Kinase 40 U/L (55-170) L 12/15/16 08:25 CK-MB (CK-2) 1.0 ng/mL (0.0-2.4) 12/15/16 08:25 CK-MB (CK-2) Rel Index 2.5 12/15/16 08:25 Troponin I <0.012 ng/mL (0.000-0.034) 12/15/16 08:25 Total Protein 7.5 g/dL (6.3-8.2) 12/15/16 09:55 Albumin 3.8 g/dL (3.5-5.0) 12/15/16 09:55 Urine Color Yellow 12/15/16 09:04 Urine Appearance Clear (Clear) 12/15/16 09:04 Urine pH 5.0 (5.0-8.0) 12/15/16 09:04 Ur Specific [place] 1.021 (1.001-1.035) 12/15/16 09:04 Urine Protein 1+ (Negative) H 12/15/16 09:04 Urine Glucose (UA) 2+ (Negative) H 12/15/16 09:04 Urine Ketones Trace (Negative) H 12/15/16 09:04 Urine Blood Moderate (Negative) H 12/15/16 09:04 Urine Nitrite Negative (Negative) 12/15/16 09:04 Urine Bilirubin Negative (Negative) 12/15/16 09:04 Urine Urobilinogen <2.0 mg/dL (<2.0) 12/15/16 09:04 Ur Leukocyte Esterase Negative (Negative) 12/15/16 09:04 Urine RBC 21 /hpf (0-5) H 12/15/16 09:04 Urine WBC 4 /hpf (0-5) 12/15/16 09:04 Urine Bacteria Rare /hpf (None) H 12/15/16 09:04 Urine Mucus Rare /hpf (None) H 12/15/16 09:04 Urine Opiates Screen Not Detected (NotDetected) 12/15/16 09:04 Ur Oxycodone Screen Not Detected (NotDetected) 12/15/16 09:04 Urine Methadone Screen Not Detected (NotDetected) 12/15/16 09:04 Ur Propoxyphene Screen Not Detected (NotDetected) 12/15/16 09:04 Ur Barbiturates Screen Not Detected (NotDetected) 12/15/16 09:04 U Tricyclic Antidepress Not Detected (NotDetected) 12/15/16 09:04 Ur Phencyclidine Scrn Not Detected (NotDetected) 12/15/16 09:04 Ur Amphetamines Screen Not Detected (NotDetected) 12/15/16 09:04 U Methamphetamines Scrn Not Detected (NotDetected) 12/15/16 09:04 U Benzodiazepines Scrn Not Detected (NotDetected) 12/15/16 09:04 Urine Cocaine Screen Not Detected (NotDetected) 12/15/16 09:04 U Marijuana (THC) Screen Not Detected (NotDetected) 12/15/16 09:04 Thrombosis Risk Factor Assmnt - DVT/VTE Prophylaxis DVT/VTE Prophylaxis: Pharmacologic Prophylaxis ordered - Choose All That Apply Any of the Below Risk Factors Present?: Yes Each Factor Represents 1 point: Acute LA Other Risk Factors: Yes Each Risk Factor Represents 2 Points: Major surgery Each Risk Factor Represents 3 Points: Age 75 years or older Thrombosis Risk Factor Assessment Total Risk Factor Score: 6 Thrombosis Risk Factor Assessment Level: High Risk Assessment and Plan Plan: 1. Severe hypercalcemia secondary to metastatic lesions, patient requires IV hydration and IV Lasix 20 mg every 12 hours, folic acid will be placed, patient will be started on IV Aredia 60 mg 1, labs monitored, cortisol level will be obtained EKG would be monitored patient would be on remote telemetry 2. 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 Alves and biopsy will be obtained in the supraclavicular lymphadenopathy noted another site would be the right iliac region he had bronchoscopy ease expected once stabilized should there be no access for other biopsies 5. Anorexia secondary to multifactorial causes including malignancy and hypercalcemia, patient currently is made nothing by mouth secondary to mental status no discussion for any PEG feedings at this time, nutritional supplementation was discussed and encouraged X 6. CODE STATUS full code no prolonged intubation GI prophylaxis and DVT prophylaxis
[2016-12-15] MEDS ORDERED: SODIUM CHLORIDE 0.9% 250 ML with PAMIDRONATE 60 MG IV ONE ×2 (20:00)
[2016-12-15 20:07] LABS: Glucose,Whole Blood 142 mg/dL (75-99)
--- NOTE | 2016-12-15 20:10 | NM ---
EXAMINATION TYPE: NM bone scan whole body DATE OF EXAM: 12/15/2016 8:03 PM COMPARISON: Correlation CT same day HISTORY: 81-year-old male assess for bone metastases Delayed whole-body scanning was performed following the injection of 27 mCi Tc 99m MDP. Images acqui red 3 hours post injection. FINDINGS: Focal photopenia along the right iliac wing on the posterior projection. No corresponding abnormality seen at the level of the T8 vertebral body. Some degenerative activity is noted at the right sternoc lavicular joint. No suspicious focal increased area of tracer activity seen. IMPRESSION: Limited sensitivity of bone scan given the purely lytic nature of the 2 osseous lesions seen on the C T scans of the same day. The left iliac wing lesion shows up as a photopenic defect. The T8 lesion is not clearly appreciated.
[2016-12-15] MEDS: ISOSORBIDE MONONITRATE ER 30 MG TAB.ER.24H PO SCH (20:58)
[2016-12-15] MEDS: LISINOPRIL 20 MG TAB PO SCH (20:58)
[2016-12-15] MEDS ORDERED: QUEtiapine 25 MG TAB PO SCH (21:00)
[2016-12-15] MEDS: GABAPENTIN 100 MG CAP PO SCH (21:59)
[2016-12-15] MEDS: FUROSEMIDE 10 MG/ML 4 ML VIAL IV SCH (22:24)
[2016-12-16 07:17] LABS: Glucose,Whole Blood 126 mg/dL (75-99)
[2016-12-16] MEDS: INSULIN LISPRO (humaLOG) 300 UNIT/3 ML VIAL SQ SCH ×4 (08:36→20:28)
[2016-12-16 08:47] LABS: Basophils % (A) 0 %; CH 30.1; Eosinophils # (A) 0.1 k/uL (0-0.7); Eosinophils % (A) 1 %; HCT 45.8 % (39.0-53.0); HDW 3.16; Luc # (Auto) 0.13; Luc % (Auto) 1; Lymphocytes # (A) 0.8 k/uL (1.0-4.8); Lymphocytes % (A) 7 %; MCH 30.2 pg (25.0-35.0); MCV 86.3 fL (80.0-100.0); Mean Platelet Volume 7.1; Monocytes # (A) 0.5 k/uL (0-1.0); Monocytes % (A) 4 %; Neutrophils # (A) 9.5 k/uL (1.3-7.7); Neutrophils % (A) 87 %; RBC 5.31 m/uL (4.30-5.90); RDW 13.1 % (11.5-15.5); WBC (Perox) 11.25
[2016-12-16] MEDS: GABAPENTIN 100 MG CAP PO SCH ×2 (08:48→21:00)
[2016-12-16] MEDS: ASPIRIN 81 MG CHEW PO SCH (08:48)
[2016-12-16] MEDS: HEPARIN SODIUM,PORCINE 5,000 UNIT/ML 1 ML VIAL SQ SCH ×2 (08:48→16:55)
[2016-12-16] MEDS: FUROSEMIDE 10 MG/ML 4 ML VIAL IV SCH ×2 (08:48→21:00)
[2016-12-16] MEDS: amLODIPine 10 MG TAB PO SCH (08:48)
[2016-12-16] MEDS: LISINOPRIL 20 MG TAB PO SCH (08:49)
[2016-12-16] MEDS: PANTOPRAZOLE 40 MG/10 ML VIAL IVP SCH (08:49)
[2016-12-16] MEDS: ISOSORBIDE MONONITRATE ER 30 MG TAB.ER.24H PO SCH (08:49)
[2016-12-16 09:00] LABS: ALT 27 U/L (21-72); AST 26 U/L (17-59); Alkaline Phosphatase 133 U/L (38-126); Anion Gap 11 mmol/L; Blood Urea Nitrogen 28 mg/dL (9-20); Carbon Dioxide 26 mmol/L (22-30); Chloride 109 mmol/L (98-107); Glucose 126 mg/dL (74-99); Non-African American GFR(MDRD) >60 (>60 ml/min/1.73 sqM); Phosphorous 2.7 mg/dL (2.5-4.5); Potassium 3.5 mmol/L (3.5-5.1); Sodium 146 mmol/L (137-145); Total Bilirubin 1.7 mg/dL (0.2-1.3); Total Protein 7.2 g/dL (6.3-8.2)
[2016-12-16] MEDS ORDERED: amLODIPine 10 MG TAB PO SCH (09:00)
[2016-12-16 09:09] LABS: Ionized Calcium 7.6 mg/dL (4.5-5.3)
[2016-12-16 09:13] LABS: Calcium 13.3 mg/dL (8.4-10.2)
--- NOTE | 2016-12-16 11:02 | P.PN ---
Subjective Principal diagnosis: Lung mass Patient seen and examined with his and son at bedside. The patient is still very somnolent today. The results of the CT and bone scans are discussed with the family. The possibility of doing a bone biopsy will need to be discussed with oncology. Objective - Vital Signs Vital signs: Vital Signs Temp 97.6 F 12/16/16 07:00 Pulse 78 12/16/16 07:00 Resp 18 12/16/16 07:00 BP 141/78 12/16/16 07:00 Pulse Ox 95 12/16/16 07:15 Intake & Output 12/15/16 12/16/16 12/16/16 18:59 06:59 18:59 Intake Total 425 1250 Output Total 350 4000 Balance 75 -2750 Weight 67 kg Intake: IV 1250 Mvi, Adult No.4 with Vit 100 K 10 ml Thiamine 100 mg Folic Acid 1 mg In Sodium Chloride 0.9% 1,000 ml @ 100 mls/hr IV .BY DURATION [facility] Rx#: [id number] Sodium Chloride 0.9% 1, 900 000 ml @ 100 mls/hr IV . BY DURATION [facility] Rx#: [id number] Sodium Chloride 0.9% 250 250 ml @ 83 mls/hr IV .Q3H1M ONE with Pamidronate 60 mg Rx#:[id number] Intake, IV Titration 425 Amount Sodium Chloride 0.9% 1, 425 000 ml @ 200 mls/hr IV . Q5H ONE Rx#:[id number] Output: Urine 350 4000 Other: Voiding Method Indwelling Catheter Indwelling Catheter - Exam Gen.: Patient is somnolent and appears to be actively going through DTs Cardiovascular: Regular rate and rhythm, S1/S2 Lungs: Diminished breath sounds bilaterally no wheezes rales or rhonchi Abdomen: Soft nontender nondistended positive bowel sounds Extremities no edema - Labs CBC & Chem 7: 12/16/16 08:13 12/16/16 08:13 Labs: Abnormal Lab Results - Last 24 Hours (Table) 12/15/16 12/15/16 12/15/16 Range/Units 16:48 17:52 20:06 WBC (3.8-10.6) k/uL Neutrophils # (1.3-7.7) k/uL Lymphocytes # (1.0-4.8) k/uL Sodium (137-145) mmol/L Chloride (98-107) mmol/L BUN (9-20) mg/dL Glucose (74-99) mg/dL POC Glucose (mg/dL) 124 H 142 H (75-99) mg/dL Calcium (8.4-10.2) mg/dL Ionized Calcium Yannick 7.7 H* (4.5-5.3) mg/dL Total Bilirubin (0.2-1.3) mg/dL Alkaline Phosphatase (38-126) U/L Albumin (3.5-5.0) g/dL 12/16/16 12/16/16 12/16/16 Range/Units 07:15 08:13 08:13 WBC 11.0 H (3.8-10.6) k/uL Neutrophils # 9.5 H (1.3-7.7) k/uL Lymphocytes # 0.8 L (1.0-4.8) k/uL Sodium 146 H (137-145) mmol/L Chloride 109 H (98-107) mmol/L BUN 28 H (9-20) mg/dL Glucose 126 H (74-99) mg/dL POC Glucose (mg/dL) 126 H (75-99) mg/dL Calcium 13.3 H* (8.4-10.2) mg/dL Ionized Calcium Yannick 7.6 H* (4.5-5.3) mg/dL Total Bilirubin 1.7 H (0.2-1.3) mg/dL Alkaline Phosphatase 133 H (38-126) U/L Albumin 3.4 L (3.5-5.0) g/dL Assessment and Plan Plan: Toxic metabolic encephalopathy Active delirium tremens Extensive conglomerate mediastinal lymphadenopathy Extrinsic mass effect on the right mainstem bronchus Left lower lobe pulmonary mass 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 Hyperglycemia Failure to thrive O2 to maintain saturation greater than or equal to 88% CIWA protocol Banana bag daily CT of the abdomen and pelvis, bone scan results reviewed and discussed with the family Will need to discuss biopsy options with oncology. It appears the best place at this time is the iliac bone. Patient is too unstable for bronchoscopy at this time, however this could be done once patient is medically stable if unable to obtain biopsies from other areas. IV fluid hydration Oncology recommendations Swallow evaluation can be done when patient's mental status improves, NPO for now GI and DVT prophylaxis Family is updated on findings and patient's condition. All questions are answered and they are agreeable to the plan of care at this time.
[2016-12-16 11:40] LABS: Glucose,Whole Blood 138 mg/dL (75-99)
[2016-12-16] MEDS ORDERED: SODIUM CHLORIDE 0.9% 1,000 ML BAG ONE (13:37)
[2016-12-16] MEDS: 1: MVI, ADULT NO.4 WITH VIT K 10 ML, THIAMINE 100 MG, FOLIC ACID 1 MG in SODIUM CHLORIDE IV SCH ×8 (13:37→22:25)
[2016-12-16 13:55] LABS: Hemoglobin A1C 7.1 % (4.2-6.1)
--- NOTE | 2016-12-16 14:27 | P.PN ---
Subjective This is a pleasant 81-year-old lady patient of Dr. shantanu yoo. He has underlying history of diabetes mellitus type 2, CAD, BPH, who has chronic alcoholism. Apparently he is at baseline until he had quit alcohol completely 2 weeks ago December 04 for unknown reasons, patient has not had any blood, since then including beer. He was noticed by family to have altered mentation to include hallucinations this will, and auditory hallucinations, diminished appetite and increasing weakness. Patient had not eating for the past one to 4 hours, and only has slept 24 hours within the past 7 days, weight loss of 20 pounds, In the emergency room he was seen secondary to the acute dehydration, he was found to be mentally altered with hypercalcemia, dehydration, CAT scan of the chest showed significant abnormality include of 4.8 cm left upper lobe pulmonary mass with lower lobe metastatic pulmonary nodules up to 7 mm, conglomerate mediastinal lymph node extending from thoracic inlet down to subcarina and paraesophageal region measuring 13.4 cm craniocaudal small cell carcinoma is high in the differential, extrinsic mass effect mild did not O's right-sided airway or she is metastatic disease with soft tissue replacing T8 vertebral body brain CT shows mild to moderate diffuse age-related cerebral atrophy without any significant interval changes epi noted CT abdomen and pelvis shows additional all she is metastatic lesion 5.1 cm destroying the central portion of the left iliac bone with extra osseous soft tissue extension him a also 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 Yanes and Dr. Morales. Patient was started on ciwa protocol, Seroquel 25 hs for hallucinations, and IV Aredia for hypercalcemia IV Lasix for forced diuresis , iv hydration 12/16: Bone scan as limited sensitivity of the bone scan given the apparently lytic nature of the 2 osseous lesions seen on the CAT scans of the same day. The left iliac wing lesion shows up as a photopenic defect. The T8 lesion is not clearly appreciated. Patient is also followed by Dr. Yanes. Plan is for bone biopsy. Patient is very lethargic this morning thought to be due to Seroquel which will be given at supper time versus bedtime. IV fluids it 125 mL per hour and Lasix at 40 mg every 12 hours IV. Objective - Vital Signs Vital signs: Vital Signs Temp 97.6 F 12/16/16 07:00 Pulse 78 12/16/16 07:00 Resp 18 12/16/16 07:00 BP 141/78 12/16/16 07:00 Pulse Ox 95 12/16/16 07:15 Intake & Output 12/15/16 12/16/16 12/16/16 18:59 06:59 18:59 Intake Total 425 1250 Output Total 350 4000 Balance 75 -2750 Weight 67 kg Intake: IV 1250 Mvi, Adult No.4 with Vit 100 K 10 ml Thiamine 100 mg Folic Acid 1 mg In Sodium Chloride 0.9% 1,000 ml @ 100 mls/hr IV .BY DURATION HONEY Rx#: [id number] Sodium Chloride 0.9% 1, 900 000 ml @ 100 mls/hr IV . BY DURATION HONEY Rx#: [id number] Sodium Chloride 0.9% 250 250 ml @ 83 mls/hr IV .Q3H1M ONE with Pamidronate 60 mg Rx#:[id number] Intake, IV Titration 425 Amount Sodium Chloride 0.9% 1, 425 000 ml @ 200 mls/hr IV . Q5H ONE Rx#:[id number] Output: Urine 350 4000 Other: Voiding Method Indwelling Catheter Indwelling Catheter - Exam General appearance: average body habitus, cooperative (To contact to recent Ativan use), no acute distress - EENT Eyes: anicteric sclerae, PERRLA, normal appearance ENT: NA/AT - Respiratory Respiratory: bilateral: CTA, diminished - Cardiovascular Rhythm: regular Heart sounds: normal: S1, S2 Abnormal Heart Sounds: no systolic murmur, no diastolic murmur, no rub, no S3 Gallop, no S4 Gallop, no click, no other - Gastrointestinal General gastrointestinal: normal bowel sounds, soft - Integumentary Integumentary: normal, normal turgor - Neurologic Neurologic: CNII-XII intact - Psychiatric Obtunded patient has a bilateral wrist restraints secondary to extreme agitation - Labs CBC & Chem 7: 12/16/16 08:13 12/16/16 08:13 Labs: Abnormal Lab Results - Last 24 Hours (Table) 12/15/16 12/15/16 12/15/16 Range/Units 16:48 17:52 20:06 POC Glucose (mg/dL) 124 H 142 H (75-99) mg/dL Ionized Calcium Yannick 7.7 H* (4.5-5.3) mg/dL 12/16/16 Range/Units 07:15 POC Glucose (mg/dL) 126 H (75-99) mg/dL Ionized Calcium Yannick (4.5-5.3) mg/dL Assessment and Plan Plan: 1. Severe hypercalcemia secondary to metastatic lesions, patient requires IV hydration and IV Lasix 20 mg every 12 hours, folic acid will be placed, patient will be started on IV Aredia 60 mg 1, labs monitored, cortisol level will be obtained EKG would be monitored patient would be on remote telemetry 2. 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 Alves and biopsy will be obtained in the supraclavicular lymphadenopathy noted another site would be the right iliac region he had bronchoscopy ease expected once stabilized should there be no access for other biopsies 5. Severe protein calorie malnutrition due to anorexia secondary to multifactorial causes including malignancy and hypercalcemia, patient currently is made nothing by mouth secondary to mental status no discussion for any PEG feedings at this time, nutritional supplementation was discussed and encouraged. Bedside swallow eval. 6. Acute delirium tremens with history of alcohol abuse. Banana bag daily and [facility] for cautions 6. CODE STATUS full code no prolonged intubation GI prophylaxis and DVT prophylaxis Discharge plan: To be determined Impression and plan of care have been directed as dictated by the signing physician. Sue Solis nurse practitioner acting as scribe for signing physician. Time with Patient: Greater than 30
[2016-12-16] MEDS: TRIAMCINOLONE ACET 0.5% CREAM 15 GM TUBE TOPICAL SCH ×2 (16:54→21:00)
[2016-12-16 16:55] LABS: Glucose,Whole Blood 109 mg/dL (75-99)
--- NOTE | 2016-12-16 17:58 | P.CONS ---
History of Present Illness - Reason for Consult Consult date: 12/16/[address] findings, suggesting malignancy Requesting physician: Franko Chun - Chief Complaint AMS - History of Present Illness Pt is unable to communicate, he is in restraints and on CIWA protocol, and son are at bedside. Family states pt was in normal state of health until Good Friday, he quit drinking "cold turkey", has drank nothing since. Progressively his health has declined, pt has lost wt., unable to care for self, no energy or strength, not eating or drinking much, and he became more and more lethargic which is what brought them here to the hospital. The family did not communicate any history of known cancer in pt. Review of Systems ROS unobtainable: due to mental status All systems: negative Past Medical History Past Medical History: Coronary Artery Disease (CAD), Chest Pain / Angina, Diabetes Mellitus, Deep Vein Thrombosis (DVT), Eye Disorder, GERD/Reflux, Hearing Disorder / Deafness, Memory Impairment, Myocardial Infarction (MD), Osteoarthritis (OA), Pneumonia, Prostate Disorder, Vascular Disorder Additional Past Medical History / Comment(s): neuropathy, sinusitis, hernia Last Myocardial Infarction Date:: 11/28/13 History of Any Multi-Drug Resistant Organisms: None Reported Past Surgical History: Hernia Repair Additional Past Surgical History / Comment(s): 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 toe right foot, vein surgery both legs for phlebitis Past Anesthesia/Blood Transfusion Reactions: No Reported Reaction Date of Last Stent Placement:: November 2013 Past Psychological History: No Psychological Hx Reported Smoking Status: Former smoker Past Alcohol Use History: Abuse, Daily Past Drug Use History: None Reported - Past Family History Sister(s) Family Medical History: Cancer (Cervical) Son(s) Family Medical History: No Reported History Mother Family Medical History: Cancer Father Family Medical History: Congestive Heart Failure (CHF), CVA/TIA (Alcoholism) Medications and Allergies Home Medications Medication Instructions Recorded Confirmed Type Gabapentin [Neurontin] 100 mg PO BID 12/21/13 12/15/16 History Isosorbide Mononitrate [Imdur] 30 mg PO DAILY 12/21/13 12/15/16 History glyBURIDE [Diabeta] 2.5 mg PO AC-BID 12/21/13 12/15/16 History Aspirin EC [Ecotrin Low Dose] 81 mg PO DAILY 05/29/16 12/15/16 History Vit A,C & E/Lutein/Minerals 1 tab PO DAILY 05/29/16 12/15/16 History [Ocuvite with Lutein Tablet] amLODIPine BESYLATE/BENAZEPRIL 1 cap PO DAILY 05/29/16 12/15/16 History [Lotrel 10-40 mg Capsule] Allergies Allergy/AdvReac Type Severity Reaction Status Date / Time sulfamethoxazole Allergy Severe Anaphylaxis Verified 12/15/16 09:06 [From Bactrim] trimethoprim [From Bactrim] Allergy Severe Anaphylaxis Verified 12/15/16 09:06 Physical Exam Vitals: Vital Signs Temp Pulse Pulse Resp BP Pulse Ox 12/16/16 16:00 66 81 16 12/16/16 15:00 97.4 F L 66 16 139/67 94 L 12/16/16 07:15 95 12/16/16 07:00 97.6 F 78 18 141/78 93 L 12/16/16 00:16 158/64 12/15/16 23:00 94.7 F L 75 16 191/84 98 Intake and Output 12/16/16 12/16/16 12/16/16 06:59 14:59 22:59 Intake Total 1811.2 20 Output Total 4000 Balance -2188.8 20 Intake: IV 800 20 Mvi, Adult No.4 with Vit 20 K 10 ml Thiamine 100 mg Folic Acid 1 mg In Sodium Chloride 0.9% 1,000 ml @ 100 mls/hr IV .BY DURATION HONEY Rx#: [id number] Sodium Chloride 0.9% 1, 800 000 ml @ 100 mls/hr IV . BY DURATION HONEY Rx#: [id number] Intake, IV Titration 1011.2 Amount Mvi, Adult No.4 with Vit 1011.2 K 10 ml Thiamine 100 mg Folic Acid 1 mg In Sodium Chloride 0.9% 1,000 ml @ 100 mls/hr IV .BY DURATION HONEY Rx#: [id number] Output: Urine 4000 Other: Voiding Method Indwelling Catheter Indwelling Catheter Indwelling Catheter - Constitutional General appearance: thin - EENT Eyes: anicteric sclerae - Neck Neck: no lymphadenopathy - Respiratory Respiratory: bilateral: CTA (pt was not able to follow commands and take deep breaths) - Cardiovascular Heart sounds: normal: S1, S2 leg Peripheral Edema: bilateral: Trace - Gastrointestinal General gastrointestinal: no absent bowel sounds, no decreased bowel sounds, no distended, no hepatomegaly, no hyperactive bowel sounds, normal bowel sounds, no organomegaly, no rigid, no scaphoid, soft, no splenomegaly, no tenderness, no umbilical hernia, no ventral hernia - Neurologic pt extremities are cool to touch - Musculoskeletal unable to assess - Psychiatric Psychiatric: no A&O x's 3, no appropriate affect, no intact judgment & insight Results CBC & Chem 7: 12/16/16 08:13 12/16/16 08:13 Labs: Abnormal Lab Results - Last 24 Hours (Table) 12/15/16 12/15/16 12/15/16 Range/Units 16:48 17:52 20:06 WBC (3.8-10.6) k/uL Neutrophils # (1.3-7.7) k/uL Lymphocytes # (1.0-4.8) k/uL Sodium (137-145) mmol/L Chloride (98-107) mmol/L BUN (9-20) mg/dL Glucose (74-99) mg/dL POC Glucose (mg/dL) 124 H 142 H (75-99) mg/dL Hemoglobin A1c (4.2-6.1) % Calcium (8.4-10.2) mg/dL Ionized Calcium Yannick 7.7 H* (4.5-5.3) mg/dL Total Bilirubin (0.2-1.3) mg/dL Alkaline Phosphatase (38-126) U/L Albumin (3.5-5.0) g/dL 12/16/16 12/16/16 12/16/16 Range/Units 07:15 08:13 08:13 WBC (3.8-10.6) k/uL Neutrophils # (1.3-7.7) k/uL Lymphocytes # (1.0-4.8) k/uL Sodium 146 H (137-145) mmol/L Chloride 109 H (98-107) mmol/L BUN 28 H (9-20) mg/dL Glucose 126 H (74-99) mg/dL POC Glucose (mg/dL) 126 H (75-99) mg/dL Hemoglobin A1c 7.1 H (4.2-6.1) % Calcium 13.3 H* (8.4-10.2) mg/dL Ionized Calcium Yannick 7.6 H* (4.5-5.3) mg/dL Total Bilirubin 1.7 H (0.2-1.3) mg/dL Alkaline Phosphatase 133 H (38-126) U/L Albumin 3.4 L (3.5-5.0) g/dL 12/16/16 12/16/16 12/16/16 Range/Units 08:13 11:38 16:53 WBC 11.0 H (3.8-10.6) k/uL Neutrophils # 9.5 H (1.3-7.7) k/uL Lymphocytes # 0.8 L (1.0-4.8) k/uL Sodium (137-145) mmol/L Chloride (98-107) mmol/L BUN (9-20) mg/dL Glucose (74-99) mg/dL POC Glucose (mg/dL) 138 H 109 H (75-99) mg/dL Hemoglobin A1c (4.2-6.1) % Calcium (8.4-10.2) mg/dL Ionized Calcium Yannick (4.5-5.3) mg/dL Total Bilirubin (0.2-1.3) mg/dL Alkaline Phosphatase (38-126) U/L Albumin (3.5-5.0) g/dL CT scan - abdomen: report reviewed CT scan - chest: report reviewed CT Scan - head: report reviewed CT scan - pelvis: report reviewed Assessment and Plan (1) Lung mass Status: Acute (2) Soft tissue mass Status: Acute (3) Bone lesion Status: Acute Plan: From an Oncology standpoint tissue biopsy needs to be obtained to confirm malignancy and primary source. Have reviewed Internal Med and Pulmonary notes and it seems that bone or soft tissue biopsy is favored, agree with which ever source is more amenable to biopsy in pt current condition. We will await biopsy results.
[2016-12-16 20:19] LABS: Glucose,Whole Blood 129 mg/dL (75-99)
[2016-12-16] MEDS: CALCITONIN INJ 200 UNIT/ML (MDV) VIAL SUBDERMAL SCH (20:55)
[2016-12-16] MEDS: QUEtiapine 25 MG TAB PO SCH (20:55)
[2016-12-16] MEDS ORDERED: LORazepam 0.5 MG TAB PO PRN (20:57)
[2016-12-16] MEDS ORDERED: LORazepam 2 MG/ML SYRINGE IV PRN (20:59)
[2016-12-16] MEDS: SODIUM CHLORIDE 0.9% 1,000 ML IV SCH (22:39)
[2016-12-17] MEDS: HEPARIN SODIUM,PORCINE 5,000 UNIT/ML 1 ML VIAL SQ SCH (00:23)
[2016-12-17] MEDS: SODIUM CHLORIDE 0.9% 1,000 ML IV SCH ×2 (03:50→10:57)
[2016-12-17 07:19] LABS: Glucose,Whole Blood 182 mg/dL (75-99)
[2016-12-17] MEDS: amLODIPine 10 MG TAB PO SCH (07:56)
[2016-12-17] MEDS: LORazepam 2 MG/ML SYRINGE IV PRN (08:02)
[2016-12-17] MEDS: CALCITONIN INJ 200 UNIT/ML (MDV) VIAL SUBDERMAL SCH ×2 (08:06→22:28)
[2016-12-17 08:09] LABS: INR 1.2 (<1.1); Prothrombin Time 11.8 sec (9.0-12.0)
[2016-12-17] MEDS: GABAPENTIN 100 MG CAP PO SCH (08:10)
[2016-12-17 08:16] LABS: Basophils # (A) 0.1 k/uL (0-0.2); Basophils % (A) 1 %; CH 30.4; CHCM 35.5; Eosinophils # (A) 0.1 k/uL (0-0.7); Eosinophils % (A) 1 %; HCT 45.2 % (39.0-53.0); HDW 3.25; HGB 15.5 gm/dL (13.0-17.5); Luc # (Auto) 0.12; Luc % (Auto) 1; Lymphocytes # (A) 0.8 k/uL (1.0-4.8); Lymphocytes % (A) 8 %; MCH 29.5 pg (25.0-35.0); MCHC 34.3 g/dL (31.0-37.0); Mean Platelet Volume 7.1; Monocytes # (A) 0.4 k/uL (0-1.0); Monocytes % (A) 5 %; Neutrophils # (A) 7.9 k/uL (1.3-7.7); Neutrophils % (A) 85 %; RBC 5.26 m/uL (4.30-5.90); RDW 12.7 % (11.5-15.5); WBC 9.3 k/uL (3.8-10.6); WBC (Perox) 9.32
[2016-12-17] MEDS: FUROSEMIDE 10 MG/ML 4 ML VIAL IV SCH ×2 (08:27→18:30)
[2016-12-17] MEDS: PANTOPRAZOLE 40 MG/10 ML VIAL IVP SCH (08:28)
[2016-12-17] MEDS: TRIAMCINOLONE ACET 0.5% CREAM 15 GM TUBE TOPICAL SCH ×2 (08:28→22:31)
[2016-12-17] MEDS: LISINOPRIL 20 MG TAB PO SCH (08:29)
[2016-12-17] MEDS: ISOSORBIDE MONONITRATE ER 30 MG TAB.ER.24H PO SCH (08:29)
[2016-12-17 08:30] LABS: ALT 26 U/L (21-72); AST 30 U/L (17-59); Alkaline Phosphatase 119 U/L (38-126); Anion Gap 11 mmol/L; Blood Urea Nitrogen 34 mg/dL (9-20); Calcium 11.7 mg/dL (8.4-10.2); Carbon Dioxide 27 mmol/L (22-30); Chloride 109 mmol/L (98-107); Glucose 186 mg/dL (74-99); Non-African American GFR(MDRD) >60 (>60 ml/min/1.73 sqM); Phosphorous 3.1 mg/dL (2.5-4.5); Sodium 147 mmol/L (137-145); Total Bilirubin 1.9 mg/dL (0.2-1.3); Total Protein 7.2 g/dL (6.3-8.2)
[2016-12-17 08:38] LABS: Potassium 3.5 mmol/L (3.5-5.1)
[2016-12-17 08:48] LABS: Ionized Calcium 6.5 mg/dL (4.5-5.3)
[2016-12-17] MEDS: INSULIN LISPRO (humaLOG) 300 UNIT/3 ML VIAL SQ SCH ×4 (10:56→22:29)
[2016-12-17] MEDS: SODIUM CHLORIDE 0.45% 1,000 ML IV SCH (10:57)
[2016-12-17 12:01] LABS: Glucose,Whole Blood 174 mg/dL (75-99)
[2016-12-17] MEDS ORDERED: LORazepam 2 MG/ML SYRINGE IV STA (12:49)
[2016-12-17] MEDS: 1: MVI, ADULT NO.4 WITH VIT K 10 ML, THIAMINE 100 MG, FOLIC ACID 1 MG in SODIUM CHLORIDE IV SCH ×8 (13:23→22:33)
[2016-12-17] MEDS ORDERED: SODIUM CHLORIDE 0.9% 1,000 ML BAG ONE (13:23)
--- NOTE | 2016-12-17 14:03 | P.PN ---
Subjective This is a pleasant 81-year-old lady patient of Dr. shantanu yoo. He has underlying history of diabetes mellitus type 2, CAD, BPH, who has chronic alcoholism. Apparently he is at baseline until he had quit alcohol completely 2 weeks ago December 04 for unknown reasons, patient has not had any blood, since then including beer. He was noticed by family to have altered mentation to include hallucinations this will, and auditory hallucinations, diminished appetite and increasing weakness. Patient had not eating for the past one to 4 hours, and only has slept 24 hours within the past 7 days, weight loss of 20 pounds, In the emergency room he was seen secondary to the acute dehydration, he was found to be mentally altered with hypercalcemia, dehydration, CAT scan of the chest showed significant abnormality include of 4.8 cm left upper lobe pulmonary mass with lower lobe metastatic pulmonary nodules up to 7 mm, conglomerate mediastinal lymph node extending from thoracic inlet down to subcarina and paraesophageal region measuring 13.4 cm craniocaudal small cell carcinoma is high in the differential, extrinsic mass effect mild did not O's right-sided airway or she is metastatic disease with soft tissue replacing T8 vertebral body brain CT shows mild to moderate diffuse age-related cerebral atrophy without any significant interval changes epi noted CT abdomen and pelvis shows additional all she is metastatic lesion 5.1 cm destroying the central portion of the left iliac bone with extra osseous soft tissue extension him a also 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 Yanes and Dr. Morales. Patient was started on ciwa protocol, Seroquel 25 hs for hallucinations, and IV Aredia for hypercalcemia IV Lasix for forced diuresis , iv hydration 12/16: Bone scan as limited sensitivity of the bone scan given the apparently lytic nature of the 2 osseous lesions seen on the CAT scans of the same day. The left iliac wing lesion shows up as a photopenic defect. The T8 lesion is not clearly appreciated. Patient is also followed by Dr. Yanes. Plan is for bone biopsy. Patient is very lethargic this morning thought to be due to Seroquel which will be given at supper time versus bedtime. IV fluids it 125 mL per hour and Lasix at 40 mg every 12 hours IV. 5/2: Calcium is improved to 11.7 and ionized calcium at 6.5. Low blood glucoses running between 109 and 182. Plan for interventional radiology to do biopsy today but patient needs to be completely still for procedure. We have ordered Ativan 1 mg IV before the procedure and repeat 1 which will hopefully be able to complete the procedure. Librium was started yesterday. Objective - Vital Signs Vital signs: Vital Signs Temp 97.7 F 12/17/16 07:00 Pulse 71 12/17/16 07:00 Resp 17 12/17/16 07:00 BP 128/63 12/17/16 07:00 Pulse Ox 96 12/17/16 07:00 Intake & Output 12/16/16 12/17/16 12/17/16 18:59 06:59 18:59 Intake Total 1020 800 Output Total 1000 2000 Balance 20 -1200 Intake: IV 20 800 Mvi, Adult No.4 with Vit 20 400 K 10 ml Thiamine 100 mg Folic Acid 1 mg In Sodium Chloride 0.9% 1,000 ml @ 100 mls/hr IV .BY DURATION HONEY Rx#: [id number] Sodium Chloride 0.9% 1, 400 000 ml @ 100 mls/hr IV . BY DURATION HONEY Rx#: [id number] Intake, IV Titration 1000 Amount Sodium Chloride 0.9% 1, 1000 000 ml @ 100 mls/hr IV . BY DURATION HONEY Rx#: [id number] Output: Urine 1000 2000 Other: Voiding Method Indwelling Catheter Indwelling Catheter - Exam General appearance: average body habitus, cooperative (To contact to recent Ativan use), no acute distress - EENT Eyes: anicteric sclerae, PERRLA, normal appearance ENT: NA/AT - Respiratory Respiratory: bilateral: CTA, diminished - Cardiovascular Rhythm: regular Heart sounds: normal: S1, S2 Abnormal Heart Sounds: no systolic murmur, no diastolic murmur, no rub, no S3 Gallop, no S4 Gallop, no click, no other - Gastrointestinal General gastrointestinal: normal bowel sounds, soft - Integumentary Integumentary: normal, normal turgor - Neurologic Neurologic: CNII-XII intact - Psychiatric Obtunded - Labs CBC & Chem 7: 12/17/16 07:36 12/17/16 07:36 Labs: Abnormal Lab Results - Last 24 Hours (Table) 0512/16/16 12/16/16 Range/Units 08:13 08:13 08:13 WBC 11.0 H (3.8-10.6) k/uL Neutrophils # 9.5 H (1.3-7.7) k/uL Lymphocytes # 0.8 L (1.0-4.8) k/uL Sodium 146 H (137-145) mmol/L Chloride 109 H (98-107) mmol/L BUN 28 H (9-20) mg/dL Glucose 126 H (74-99) mg/dL POC Glucose (mg/dL) (75-99) mg/dL Hemoglobin A1c 7.1 H (4.2-6.1) % Calcium 13.3 H* (8.4-10.2) mg/dL Ionized Calcium Yannick 7.6 H* (4.5-5.3) mg/dL Total Bilirubin 1.7 H (0.2-1.3) mg/dL Alkaline Phosphatase 133 H (38-126) U/L Albumin 3.4 L (3.5-5.0) g/dL 12/16/16 12/16/16 12/16/16 Range/Units 11:38 16:53 20:17 WBC (3.8-10.6) k/uL Neutrophils # (1.3-7.7) k/uL Lymphocytes # (1.0-4.8) k/uL Sodium (137-145) mmol/L Chloride (98-107) mmol/L BUN (9-20) mg/dL Glucose (74-99) mg/dL POC Glucose (mg/dL) 138 H 109 H 129 H (75-99) mg/dL Hemoglobin A1c (4.2-6.1) % Calcium (8.4-10.2) mg/dL Ionized Calcium Yannick (4.5-5.3) mg/dL Total Bilirubin (0.2-1.3) mg/dL Alkaline Phosphatase (38-126) U/L Albumin (3.5-5.0) g/dL 12/17/16 12/17/16 12/17/16 Range/Units 06:58 07:36 07:36 WBC (3.8-10.6) k/uL Neutrophils # 7.9 H (1.3-7.7) k/uL Lymphocytes # 0.8 L (1.0-4.8) k/uL Sodium 147 H (137-145) mmol/L Chloride 109 H (98-107) mmol/L BUN 34 H (9-20) mg/dL Glucose 186 H (74-99) mg/dL POC Glucose (mg/dL) 182 H (75-99) mg/dL Hemoglobin A1c (4.2-6.1) % Calcium 11.7 H (8.4-10.2) mg/dL Ionized Calcium Yannick 6.5 H* (4.5-5.3) mg/dL Total Bilirubin 1.9 H (0.2-1.3) mg/dL Alkaline Phosphatase (38-126) U/L Albumin (3.5-5.0) g/dL Assessment and Plan Plan: 1. Severe hypercalcemia secondary to metastatic lesions, patient requires IV hydration and IV Lasix 20 mg every 12 hours, folic acid will be placed, patient will be started on IV Aredia 60 mg 1, labs monitored, cortisol level will be obtained EKG would be monitored patient would be on remote telemetry 2. 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 Lung mass suspicious of. 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 Consults with Drs. Morales and Joaquín appreciated. Interventional radiology for biopsy. 5. Severe protein calorie malnutrition due to anorexia secondary to multifactorial causes including malignancy and hypercalcemia, patient currently is made nothing by mouth secondary to mental status no discussion for any PEG feedings at this time, nutritional supplementation was discussed and encouraged. Bedside swallow eval. 6. Acute delirium tremens with history of alcohol abuse. Banana bag daily and CIWA precautions, Librium 6. CODE STATUS full code no prolonged intubation GI prophylaxis and DVT prophylaxis Discharge plan: [facility] Impression and plan of care have been directed as dictated by the signing physician. Sue Solis nurse practitioner acting as scribe for signing physician. Time with Patient: Greater than 30
[2016-12-17 16:47] LABS: Glucose,Whole Blood 127 mg/dL (75-99)
[2016-12-17] MEDS: QUEtiapine 25 MG TAB PO SCH (18:30)
[2016-12-17] MEDS: TAMSULOSIN 0.4 MG CAP.ER.24H PO SCH (18:31)
[2016-12-17 20:24] LABS: Glucose,Whole Blood 122 mg/dL (75-99)
--- NOTE | 2016-12-17 20:46 | PN ---
DATE OF SERVICE: 12/17/2016 Patient is an 81-year-old male who is seen lying in bed. Patient is sedate, does moan, but does not respond appropriately. Patient is in restraints, is undergoing alcohol withdrawals. Patient's is at the bedside. Patient is afebrile and vital signs are stable. On physical exam, vital signs are temperature 97.7, heart rate 71, respiratory rate 17, blood pressure 128/63, oxygen saturation 96% on 2 L oxygen via nasal cannula. HEENT: Head is normocephalic, atraumatic. NECK: Supple. Trachea is midline. LUNGS: Fair air entry to the upper lobes. Decreased at the bases. HEART: S1 and S2 are heard. Not tachycardic. ABDOMEN: Soft. Bowel sounds are positive. EXTREMITIES: No edema. NEUROLOGIC: Patient is sedate. Does not respond verbally at this time. LABS: White count is 9.3, hemoglobin 15.5, hematocrit 45.2 with 176,000 platelets. Sodium is 147, potassium 3.5, chloride 109. CO2 is 27. Anion gap is 11. BUN is 34, creatinine 0.87. Glucose is 186. Calcium is 11.7. Ionized calcium is 6.5. Phosphorus is 3.1. Total bilirubin is 1.9, AST is 30, ALT is 26, alkaline phosphatase is 119, total protein is 7.2. Albumin is 3.5. IMPRESSION: 1. Toxic metabolic encephalopathy. 2. Active delirium tremens. 3. Extensive conglomerate mediastinal lymphadenopathy. 4. Extrinsic mass effect on the right mainstem bronchus. 5. Left lower lobe pulmonary mass. 6. 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 7. Alcohol abuse. 8. Former tobacco abuse. 9. Starvation ketosis. 10. Hypercalcemia likely paraneoplastic; concern for small-cell cancer. 11. Hyperglycemia. 12. Failure to thrive. PLAN: Continue current medications, which have been reviewed. Continue CIWA protocol. Continue oxygen to maintain saturations greater than or equal to 88%. Continue the banana bag for replacement of vitamins. Continue IV fluid hydration. Patient is not stable for bronchoscopy at this time. Plans are being reviewed with Oncology for area for biopsy for definitive diagnosis. Swallow evaluation to be done when patient's mental status improves. Continue n.p.o. Continue GI and DVT prophylaxis. Will follow the patient closely with you, making further changes as necessary.
[2016-12-18] MEDS: SODIUM CHLORIDE 0.45% 1,000 ML IV SCH ×3 (06:33→17:19)
[2016-12-18 07:02] LABS: Glucose,Whole Blood 143 mg/dL (75-99)
[2016-12-18] MEDS ORDERED: SODIUM CHLORIDE 0.9% 1,000 ML BAG ONE (08:12)
[2016-12-18] MEDS: 1: MVI, ADULT NO.4 WITH VIT K 10 ML, THIAMINE 100 MG, FOLIC ACID 1 MG in SODIUM CHLORIDE IV SCH ×8 (08:12→17:18)
[2016-12-18] MEDS: ISOSORBIDE MONONITRATE ER 30 MG TAB.ER.24H PO SCH (08:13)
[2016-12-18] MEDS: LISINOPRIL 20 MG TAB PO SCH (08:13)
[2016-12-18] MEDS: GABAPENTIN 100 MG CAP PO SCH ×2 (08:13→21:09)
[2016-12-18] MEDS: amLODIPine 10 MG TAB PO SCH (08:13)
[2016-12-18] MEDS: FUROSEMIDE 10 MG/ML 4 ML VIAL IV SCH ×2 (08:13→21:09)
[2016-12-18] MEDS: INSULIN LISPRO (humaLOG) 300 UNIT/3 ML VIAL SQ SCH ×4 (08:14→21:09)
[2016-12-18] MEDS: PANTOPRAZOLE 40 MG/10 ML VIAL IVP SCH (08:14)
[2016-12-18] MEDS: TRIAMCINOLONE ACET 0.5% CREAM 15 GM TUBE TOPICAL SCH ×2 (08:14→21:10)
[2016-12-18 08:21] LABS: Basophils % (A) 0 %; CH 29.7; CHCM 33.7; Eosinophils # (A) 0.1 k/uL (0-0.7); Eosinophils % (A) 1 %; HCT 48.2 % (39.0-53.0); HDW 3.16; HGB 15.9 gm/dL (13.0-17.5); Luc # (Auto) 0.15; Luc % (Auto) 2; Lymphocytes # (A) 0.9 k/uL (1.0-4.8); Lymphocytes % (A) 9 %; MCH 29.2 pg (25.0-35.0); MCV 88.5 fL (80.0-100.0); Mean Platelet Volume 7.2; Monocytes # (A) 0.4 k/uL (0-1.0); Monocytes % (A) 4 %; Neutrophils # (A) 8.3 k/uL (1.3-7.7); Neutrophils % (A) 84 %; RBC 5.44 m/uL (4.30-5.90); RDW 13.1 % (11.5-15.5); WBC 9.8 k/uL (3.8-10.6); WBC (Perox) 10.13
[2016-12-18 11:47] LABS: Glucose,Whole Blood 108 mg/dL (75-99)
[2016-12-18] MEDS: LORazepam 2 MG/ML SYRINGE IV PRN (12:25)
[2016-12-18] MEDS: CALCITONIN INJ 200 UNIT/ML (MDV) VIAL SUBDERMAL SCH (12:36)
--- NOTE | 2016-12-18 13:11 | CT ---
EXAMINATION TYPE: CT discontinued procedure and interventional radiology consult Physical exam shows the patient to be demented and does not answer appropriately. PHYSICAL EXAM: There are no lesions of the level of the patient's right hip. Patient moves freely. No skin abnormality. DATE OF EXAM: 12/18/2016 1:06 PM COMPARISON: NONE HISTORY: Iliac mass bx attempt CT DLP: 438 mGycm Automated exposure control for dose reduction was used. FINDINGS: Patient's destructive iliac bone lesion is localized with CT guidance. Following prep, patient became noncooperative. IMPRESSION: EXAM IS ABORTED. PATIENT IS NONCOMPLIANT.
[2016-12-18] MEDS ORDERED: LORazepam 2 MG/ML SYRINGE IV STA ×2 (13:15)
[2016-12-18] MEDS ORDERED: MORPHINE SULFATE 2 MG/ML SYRINGE IVP STA (13:17)
--- NOTE | 2016-12-18 14:05 | P.PN ---
Subjective Principal diagnosis: TME Patient seen and examined. Patient is still confused but is more alert and trying to communicate today. Per nursing he did go down for the biopsy but became combative so they were unable to complete the procedure. Objective - Vital Signs Vital signs: Vital Signs Temp 97.5 F L 12/18/16 07:00 Pulse 88 12/18/16 12:53 Resp 18 12/18/16 12:53 BP 141/67 12/18/16 07:00 Pulse Ox 94 L 12/18/16 12:53 Intake & Output 12/17/16 12/18/16 12/18/16 18:59 06:59 18:59 Intake Total 2100 2621.2 Output Total 1300 800 800 Balance 800 1821.2 -800 Weight 67 kg Intake: IV 1100 1600 Mvi, Adult No.4 with Vit 400 400 K 10 ml Thiamine 100 mg Folic Acid 1 mg In Sodium Chloride 0.9% 1,000 ml @ 100 mls/hr IV .BY DURATION [facility] Rx#: [id number] Sodium Chloride 0.9% 1, 700 1200 000 ml @ 100 mls/hr IV . BY DURATION [facility] Rx#: [id number] Intake, IV Titration 1000 1011.2 Amount Mvi, Adult No.4 with Vit 1011.2 K 10 ml Thiamine 100 mg Folic Acid 1 mg In Sodium Chloride 0.9% 1,000 ml @ 100 mls/hr IV .BY DURATION [facility] Rx#: [id number] Sodium Chloride 0.9% 1, 1000 000 ml @ 100 mls/hr IV . BY DURATION [facility] Rx#: [id number] Oral 10 Output: Urine 1300 800 800 Uretheral (Ferrer) 600 800 800 Other: Voiding Method Indwelling Catheter Indwelling Catheter - Exam Gen.: More alert today, trying to communicate Cardiovascular: Regular rate and rhythm, S1/S2 Lungs: Diminished breath sounds bilaterally no wheezes rales or rhonchi Abdomen: Soft nontender nondistended positive bowel sounds Extremities no edema - Labs CBC & Chem 7: 12/18/16 07:24 12/17/16 07:36 Labs: Abnormal Lab Results - Last 24 Hours (Table) 12/17/16 12/17/16 12/18/16 Range/Units 16:42 20:22 06:59 Neutrophils # (1.3-7.7) k/uL Lymphocytes # (1.0-4.8) k/uL POC Glucose (mg/dL) 127 H 122 H 143 H (75-99) mg/dL Phosphorus (2.5-4.5) mg/dL 12/18/16 12/18/16 12/18/16 Range/Units 07:24 07:24 11:45 Neutrophils # 8.3 H (1.3-7.7) k/uL Lymphocytes # 0.9 L (1.0-4.8) k/uL POC Glucose (mg/dL) 108 H (75-99) mg/dL Phosphorus 2.4 L (2.5-4.5) mg/dL Assessment and Plan Plan: Toxic metabolic encephalopathy Active delirium tremens Extensive conglomerate mediastinal lymphadenopathy Extrinsic mass effect on the right mainstem bronchus Left lower lobe pulmonary mass 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 Hyperglycemia Failure to thrive O2 to maintain saturation greater than or equal to 88% CIWA protocol Banana bag daily CT of the abdomen and pelvis, bone scan results reviewed and discussed with the family Patient became combative during biopsy attempt today Patient is too unstable for bronchoscopy at this time, however this could be done once patient is medically stable if unable to obtain biopsies from other areas. IV fluid hydration Oncology recommendations Swallow evaluation can be done when patient's mental status improves, NPO for now GI and DVT prophylaxis
--- NOTE | 2016-12-18 14:38 | P.PN ---
Subjective This is a pleasant 81-year-old lady patient of Dr. shantanu yoo. He has underlying history of diabetes mellitus type 2, CAD, BPH, who has chronic alcoholism. Apparently he is at baseline until he had quit alcohol completely 2 weeks ago December 04 for unknown reasons, patient has not had any blood, since then including beer. He was noticed by family to have altered mentation to include hallucinations this will, and auditory hallucinations, diminished appetite and increasing weakness. Patient had not eating for the past one to 4 hours, and only has slept 24 hours within the past 7 days, weight loss of 20 pounds, In the emergency room he was seen secondary to the acute dehydration, he was found to be mentally altered with hypercalcemia, dehydration, CAT scan of the chest showed significant abnormality include of 4.8 cm left upper lobe pulmonary mass with lower lobe metastatic pulmonary nodules up to 7 mm, conglomerate mediastinal lymph node extending from thoracic inlet down to subcarina and paraesophageal region measuring 13.4 cm craniocaudal small cell carcinoma is high in the differential, extrinsic mass effect mild did not O's right-sided airway or she is metastatic disease with soft tissue replacing T8 vertebral body brain CT shows mild to moderate diffuse age-related cerebral atrophy without any significant interval changes epi noted CT abdomen and pelvis shows additional all she is metastatic lesion 5.1 cm destroying the central portion of the left iliac bone with extra osseous soft tissue extension him a also 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 Yanes and Dr. Morales. Patient was started on ciwa protocol, Seroquel 25 hs for hallucinations, and IV Aredia for hypercalcemia IV Lasix for forced diuresis , iv hydration 12/16: Bone scan as limited sensitivity of the bone scan given the apparently lytic nature of the 2 osseous lesions seen on the CAT scans of the same day. The left iliac wing lesion shows up as a photopenic defect. The T8 lesion is not clearly appreciated. Patient is also followed by Dr. Yanes. Plan is for bone biopsy. Patient is very lethargic this morning thought to be due to Seroquel which will be given at supper time versus bedtime. IV fluids it 125 mL per hour and Lasix at 40 mg every 12 hours IV. 5: Calcium is improved to 11.7 and ionized calcium at 6.5. Low blood glucoses running between 109 and 182. Plan for interventional radiology to do biopsy today but patient needs to be completely still for procedure. We have ordered Ativan 1 mg IV before the procedure and repeat 1 which will hopefully be able to complete the procedure. Librium was started yesterday. 12/18: Patient was unable to undergo biopsy with Ativan. Anesthesia has been consult to to assist with anesthesia for biopsy. Patient is been doing better on Librium. He was able to take his medications this morning. Objective - Vital Signs Vital signs: Vital Signs Temp 97.5 F L 12/18/16 07:00 Pulse 87 12/18/16 07:00 Resp 20 12/18/16 07:00 BP 141/67 12/18/16 07:00 Pulse Ox 96 12/18/16 07:00 Intake & Output 12/17/16 12/18/16 12/18/16 18:59 06:59 18:59 Intake Total 2100 2621.2 Output Total 1300 800 Balance 800 1821.2 Weight 67 kg Intake: IV 1100 1600 Mvi, Adult No.4 with Vit 400 400 K 10 ml Thiamine 100 mg Folic Acid 1 mg In Sodium Chloride 0.9% 1,000 ml @ 100 mls/hr IV .BY DURATION [facility] Rx#: [id number] Sodium Chloride 0.9% 1, 700 1200 000 ml @ 100 mls/hr IV . BY DURATION [facility] Rx#: [id number] Intake, IV Titration 1000 1011.2 Amount Mvi, Adult No.4 with Vit 1011.2 K 10 ml Thiamine 100 mg Folic Acid 1 mg In Sodium Chloride 0.9% 1,000 ml @ 100 mls/hr IV .BY DURATION [facility] Rx#: [id number] Sodium Chloride 0.9% 1, 1000 000 ml @ 100 mls/hr IV . BY DURATION [facility] Rx#: [id number] Oral 10 Output: Urine 1300 800 Uretheral (Ferrer) 600 800 Other: Voiding Method Indwelling Catheter Indwelling Catheter - Exam General appearance: average body habitus, cooperative (To contact to recent Ativan use), no acute distress - EENT Eyes: anicteric sclerae, PERRLA, normal appearance ENT: NA/AT - Respiratory Respiratory: bilateral: CTA, diminished - Cardiovascular Rhythm: regular Heart sounds: normal: S1, S2 Abnormal Heart Sounds: no systolic murmur, no diastolic murmur, no rub, no S3 Gallop, no S4 Gallop, no click, no other - Gastrointestinal General gastrointestinal: normal bowel sounds, soft - Integumentary Integumentary: normal, normal turgor - Neurologic Neurologic: CNII-XII intact - Psychiatric Awake but confused - Labs CBC & Chem 7: 12/18/16 07:24 12/17/16 07:36 Labs: Abnormal Lab Results - Last 24 Hours (Table) 12/16/16 12/17/16 12/17/16 Range/Units 08:13 11:57 16:42 Neutrophils # (1.3-7.7) k/uL Lymphocytes # (1.0-4.8) k/uL POC Glucose (mg/dL) 174 H 127 H (75-99) mg/dL Phosphorus (2.5-4.5) mg/dL Total PSA 5.7 H (0.1 - 4.0) ng/mL 12/17/16 12/18/16 12/18/16 Range/Units 20:22 06:59 07:24 Neutrophils # (1.3-7.7) k/uL Lymphocytes # (1.0-4.8) k/uL POC Glucose (mg/dL) 122 H 143 H (75-99) mg/dL Phosphorus 2.4 L (2.5-4.5) mg/dL Total PSA (0.1 - 4.0) ng/mL 12/18/16 Range/Units 07:24 Neutrophils # 8.3 H (1.3-7.7) k/uL Lymphocytes # 0.9 L (1.0-4.8) k/uL POC Glucose (mg/dL) (75-99) mg/dL Phosphorus (2.5-4.5) mg/dL Total PSA (0.1 - 4.0) ng/mL Assessment and Plan Plan: 1. Severe hypercalcemia secondary to metastatic lesions, patient requires IV hydration and IV Lasix 20 mg every 12 hours, folic acid will be placed, patient will be started on IV Aredia 60 mg 1, labs monitored, cortisol level will be obtained EKG would be monitored patient would be on remote telemetry 2. 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 Lung mass suspicious of. 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 Consults with Drs. Morales and Joaquín appreciated. Interventional radiology for biopsy. Plan to reschedule with anesthesia. 5. Severe protein calorie malnutrition due to anorexia secondary to multifactorial causes including malignancy and hypercalcemia, patient currently is made nothing by mouth secondary to mental status no discussion for any PEG feedings at this time, nutritional supplementation was discussed and encouraged. Bedside swallow eval. 6. Acute delirium tremens with history of alcohol abuse. Banana bag daily and CIWA precautions, Librium 6. CODE STATUS full code no prolonged intubation GI prophylaxis and DVT prophylaxis Discharge plan: [place] Impression and plan of care have been directed as dictated by the signing physician. Sue Solis nurse practitioner acting as scribe for signing physician. Time with Patient: Greater than 30
[2016-12-18 17:05] LABS: Glucose,Whole Blood 168 mg/dL (75-99)
[2016-12-18] MEDS: QUEtiapine 25 MG TAB PO SCH (17:19)
[2016-12-18] MEDS: TAMSULOSIN 0.4 MG CAP.ER.24H PO SCH (17:20)
[2016-12-18 20:30] LABS: Glucose,Whole Blood 161 mg/dL (75-99)
[2016-12-19] MEDS ORDERED: SODIUM CHLORIDE 0.9% 1,000 ML BAG ONE ×2 (04:10)
[2016-12-19] MEDS: 1: MVI, ADULT NO.4 WITH VIT K 10 ML, THIAMINE 100 MG, FOLIC ACID 1 MG in SODIUM CHLORIDE IV SCH ×16 (04:10→16:15)
[2016-12-19] MEDS: SODIUM CHLORIDE 0.45% 1,000 ML IV SCH ×3 (04:27→13:12)
[2016-12-19 06:57] LABS: Glucose,Whole Blood 195 mg/dL (75-99)
[2016-12-19 07:50] LABS: CH 30.1; CHCM 35.2; HCT 44.7 % (39.0-53.0); HDW 3.28; HGB 15.4 gm/dL (13.0-17.5); MCH 29.7 pg (25.0-35.0); MCHC 34.5 g/dL (31.0-37.0); MCV 86.1 fL (80.0-100.0); RBC 5.19 m/uL (4.30-5.90); RDW 12.8 % (11.5-15.5); WBC 11.2 k/uL (3.8-10.6)
[2016-12-19 08:04] LABS: ALT 38 U/L (21-72); AST 34 U/L (17-59); Alkaline Phosphatase 156 U/L (38-126); Anion Gap 11 mmol/L; Blood Urea Nitrogen 36 mg/dL (9-20); Calcium 9.6 mg/dL (8.4-10.2); Carbon Dioxide 26 mmol/L (22-30); Chloride 115 mmol/L (98-107); Glucose 214 mg/dL (74-99); Non-African American GFR(MDRD) >60 (>60 ml/min/1.73 sqM); Sodium 152 mmol/L (137-145); Total Bilirubin 2.2 mg/dL (0.2-1.3); Total Protein 6.8 g/dL (6.3-8.2)
[2016-12-19] MEDS: INSULIN LISPRO (humaLOG) 300 UNIT/3 ML VIAL SQ SCH ×4 (08:42→21:45)
[2016-12-19] MEDS ORDERED: LIDOCAINE 1% INJ 10MG/ML (20 ML MDV) ONE (09:58)
[2016-12-19] MEDS ORDERED: PROPOFOL 10 MG/ML 20 ML VIAL IV ONE (09:58)
[2016-12-19] MEDS ORDERED: MIDAZOLAM 2 MG/2 ML VIAL ONE (09:58)
[2016-12-19] MEDS: LISINOPRIL 20 MG TAB PO SCH (10:57)
[2016-12-19] MEDS: GABAPENTIN 100 MG CAP PO SCH ×2 (10:57→21:47)
[2016-12-19] MEDS: FUROSEMIDE 10 MG/ML 4 ML VIAL IV SCH (10:57)
[2016-12-19] MEDS: ISOSORBIDE MONONITRATE ER 30 MG TAB.ER.24H PO SCH (10:57)
[2016-12-19] MEDS: PANTOPRAZOLE 40 MG/10 ML VIAL IVP SCH (10:57)
[2016-12-19] MEDS: amLODIPine 10 MG TAB PO SCH ×2 (10:57→11:01)
[2016-12-19] MEDS: TRIAMCINOLONE ACET 0.5% CREAM 15 GM TUBE TOPICAL SCH ×2 (10:59→21:53)
[2016-12-19 11:58] LABS: Glucose,Whole Blood 161 mg/dL (75-99)
--- NOTE | 2016-12-19 13:09 | CT ---
EXAMINATION TYPE: CT biopsy bone deep DATE OF EXAM: 12/19/2016 10:43 AM COMPARISON: NONE HISTORY: Left iliac mass The procedure is discussed with the patient, the risks, complications, benefits and alternatives, wer e discussed and any questions were answered. Informed consent was obtained. The patient is placed s lightly obliqued position on the CT table, prepped and draped in the usual sterile fashion. Department of anesthesiology provided anesthesia the request of referring physician. Utilizing a 18-g auge core biopsy needle 3 samples were obtained through the left iliac destructive mass. Pathology pe nding.. All elements of maximal barrier and sterile technique were utilized. The patient remained s table throughout the procedure with no immediate postprocedural complication. IMPRESSION: 1. Successful CT guided core biopsy of a iliac mass.
[2016-12-19] MEDS: POTASSIUM CHLORIDE 20 MEQ, LIDOCAINE 2% INJ 20 MG in SODIUM CHLORIDE 0.9% 100 ML IVPB SCH ×3 (13:10→19:57)
[2016-12-19] MEDS: POTASSIUM CHLORIDE ER 20 MEQ TAB.ER PO SCH (13:12)
[2016-12-19] MEDS ORDERED: DRY MOUTH SPRAY 44.3 SPRAY/44.3 ML SPRAY MUCOUS MEM PRN (14:33)
[2016-12-19] MEDS: DEXTROSE 5% IN WATER 1,000 ML IV SCH (16:14)
[2016-12-19] MEDS: ACETAMINOPHEN IV (For NPO) 1,000 MG in EMPTY BAG 1 BAG IVPB SCH ×2 (16:15→23:58)
[2016-12-19] MEDS: LEVOFLOXACIN 500MG-D5W PMX 500 MG in DEXTROSE/WATER 1 100ML.BAG IVPB SCH (16:24)
--- NOTE | 2016-12-19 16:42 | P.PN ---
Subjective This is a pleasant 81-year-old lady patient of Dr. shantanu yoo. He has underlying history of diabetes mellitus type 2, CAD, BPH, who has chronic alcoholism. Apparently he is at baseline until he had quit alcohol completely 2 weeks ago December 04 for unknown reasons, patient has not had any blood, since then including beer. He was noticed by family to have altered mentation to include hallucinations this will, and auditory hallucinations, diminished appetite and increasing weakness. Patient had not eating for the past one to 4 hours, and only has slept 24 hours within the past 7 days, weight loss of 20 pounds, In the emergency room he was seen secondary to the acute dehydration, he was found to be mentally altered with hypercalcemia, dehydration, CAT scan of the chest showed significant abnormality include of 4.8 cm left upper lobe pulmonary mass with lower lobe metastatic pulmonary nodules up to 7 mm, conglomerate mediastinal lymph node extending from thoracic inlet down to subcarina and paraesophageal region measuring 13.4 cm craniocaudal small cell carcinoma is high in the differential, extrinsic mass effect mild did not O's right-sided airway or she is metastatic disease with soft tissue replacing T8 vertebral body brain CT shows mild to moderate diffuse age-related cerebral atrophy without any significant interval changes epi noted CT abdomen and pelvis shows additional all she is metastatic lesion 5.1 cm destroying the central portion of the left iliac bone with extra osseous soft tissue extension him a also 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 Yanes and Dr. Morales. Patient was started on ciwa protocol, Seroquel 25 hs for hallucinations, and IV Aredia for hypercalcemia IV Lasix for forced diuresis , iv hydration 12/16: Bone scan as limited sensitivity of the bone scan given the apparently lytic nature of the 2 osseous lesions seen on the CAT scans of the same day. The left iliac wing lesion shows up as a photopenic defect. The T8 lesion is not clearly appreciated. Patient is also followed by Dr. Yanes. Plan is for bone biopsy. Patient is very lethargic this morning thought to be due to Seroquel which will be given at supper time versus bedtime. IV fluids it 125 mL per hour and Lasix at 40 mg every 12 hours IV. 5: Calcium is improved to 11.7 and ionized calcium at 6.5. Low blood glucoses running between 109 and 182. Plan for interventional radiology to do biopsy today but patient needs to be completely still for procedure. We have ordered Ativan 1 mg IV before the procedure and repeat 1 which will hopefully be able to complete the procedure. Librium was started yesterday. 12/18: Patient was unable to undergo biopsy with Ativan. Anesthesia has been consult to to assist with anesthesia for biopsy. Patient is been doing better on Librium. He was able to take his medications this morning. 12/19: Patient underwent the she biopsy today after anesthesia sedation, patient' s is at bedside patient has still ongoing hallucinations though it is milder, no restraints needed, he is not eating at all, hypercalcemia has improved, noted increasing sodium levels D5w was started and normal saline infusion is discontinued, patient still needs IV hydration secondary to lack of oral intake, dry mouth is noted, patient is noted to be febrile, possible aspiration, blood cultures are obtained for the temperature and started on Zosyn and Levaquin IV Objective - Vital Signs Vital signs: Vital Signs Temp 101.4 F H 12/19/16 15:40 Pulse 102 H 12/19/16 15:40 Resp 20 12/19/16 16:00 BP 140/59 12/19/16 15:40 Pulse Ox 91 L 12/19/16 15:40 Intake & Output 12/18/16 12/19/16 12/19/16 18:59 06:59 18:59 Intake Total 2111.2 2200 300 Output Total 2825 1450 Balance -713.8 750 300 Weight 67 kg Intake: IV 100 1200 200 Sodium Chloride 0.9% 1, 100 1200 200 000 ml @ 100 mls/hr IV . BY DURATION HONEY Rx#: [id number] Intake, IV Titration 2010.2 1000 100 Amount Mvi, Adult No.4 with Vit 1011.2 K 10 ml Thiamine 100 mg Folic Acid 1 mg In Sodium Chloride 0.9% 1,000 ml @ 100 mls/hr IV .BY DURATION HONEY Rx#: [id number] Potassium Chloride 20 meq 100 Lidocaine 2% Inj 20 mg In Sodium Chloride 0.9% 100 ml @ 55.5 mls/hr IVPB Q2HR HONEY Rx#:[id number] Sodium Chloride 0.9% 1, 1000 1000 000 ml @ 100 mls/hr IV . BY DURATION [facility] Rx#: [id number] Output: Urine 2825 1450 Uretheral (Ferrer) 1600 1450 Other: Voiding Method Indwelling Catheter Indwelling Catheter Indwelling Catheter - Constitutional General appearance: Present: cooperative, no acute distress - EENT Eyes: Present: anicteric sclerae ENT: Present: hard of hearing - Respiratory Respiratory: bilateral: diminished - Cardiovascular Rhythm: regular Heart sounds: normal: S1, S2 Abnormal Heart Sounds: Absent: systolic murmur, diastolic murmur, rub, S3 Gallop , S4 Gallop, click, other - Gastrointestinal General gastrointestinal: Present: normal bowel sounds, soft - Musculoskeletal Musculoskeletal: Present: strength equal bilaterally - Labs CBC & Chem 7: 12/19/16 07:23 12/19/16 07:23 Labs: Abnormal Lab Results - Last 24 Hours (Table) 12/18/16 12/18/16 12/19/16 Range/Units 17:01 20:25 06:52 WBC (3.8-10.6) k/uL Sodium (137-145) mmol/L Potassium (3.5-5.1) mmol/L Chloride (98-107) mmol/L BUN (9-20) mg/dL Glucose (74-99) mg/dL POC Glucose (mg/dL) 168 H 161 H 195 H (75-99) mg/dL Total Bilirubin (0.2-1.3) mg/dL Alkaline Phosphatase (38-126) U/L Albumin (3.5-5.0) g/dL 12/19/16 12/19/16 12/19/16 Range/Units 07:23 07:23 11:46 WBC 11.2 H (3.8-10.6) k/uL Sodium 152 H (137-145) mmol/L Potassium 3.0 L* (3.5-5.1) mmol/L Chloride 115 H (98-107) mmol/L BUN 36 H (9-20) mg/dL Glucose 214 H (74-99) mg/dL POC Glucose (mg/dL) 161 H (75-99) mg/dL Total Bilirubin 2.2 H (0.2-1.3) mg/dL Alkaline Phosphatase 156 H (38-126) U/L Albumin 3.2 L (3.5-5.0) g/dL Assessment and Plan Plan: 1. Severe hypercalcemia secondary to metastatic lesions, patient requires IV hydration and IV Lasix 20 mg every 12 hours, folic acid will be placed, patient will be started on IV Aredia 60 mg 1, labs monitored, cortisol level normal will be obtained EKG would be monitored patient would be on remote telemetry 2. 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 Lung mass suspicious of. 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 Consults with Drs. Morales and Joaquín appreciated. Interventional radiology for biopsy. Plan to reschedule with anesthesia. 5. Severe protein calorie malnutrition due to anorexia secondary to multifactorial causes including malignancy and hypercalcemia, patient currently is made nothing by mouth secondary to mental status no discussion for any PEG feedings at this time, nutritional supplementation was discussed and encouraged. Bedside swallow eval. 6. Acute delirium tremens with history of alcohol abuse. Banana bag daily and CIWA precautions, Librium 6. CODE STATUS full code no prolonged intubation 8. Hypernatremia, IV fluids was changed to D5 plain water, most likely in view off hydration using saline, labs will be monitored, GI prophylaxis and DVT prophylaxis Discharge plan: [place]
--- NOTE | 2016-12-19 17:21 | PN ---
DATE OF SERVICE: 12/19/2016 Patient is an 81-year-old male who is seen lying in bed. He is more awake and alert today; just kind of mumbles; is not speaking in any type of sentences or anything understandable. Patient does refuse to eat, according to his ; does have very dry mucous membranes. Patient did undergo a biopsy of the iliac crest today for further evaluation of what appears to be stage IV cancer. On physical exam, vital signs are temperature 98.4, heart rate is 70, respiratory rate 20, blood pressure 142/67, oxygen saturation 96% on 2 L oxygen via nasal cannula. HEENT: Head is normocephalic, atraumatic. NECK: Supple. Trachea is midline. LUNGS: With reasonable air entry bilaterally, decreased at the bases. HEART: S1 and S2 are heard. Not tachycardic. ABDOMEN: Soft. Bowel sounds are heard. EXTREMITIES: No edema. NEUROLOGIC: Patient is awake and alert. LABS: White count 11.2, hemoglobin 15.4, hematocrit 44.7 with 170,000 platelets. Sodium is 152, potassium 3.0, chloride 115. CO2 is 26. Anion gap is 11. BUN is 36, creatinine 0.89. Glucose is 214. Calcium is 9.6. Total bilirubin 2.2. AST 34, ALT 38, alkaline phosphatase 156. Total protein 6.8. Albumin is 3.2. IMPRESSION: 1. Toxic metabolic encephalopathy. 2. Active delirium tremens. 3. Extensive conglomerate mediastinal lymphadenopathy. 4. Extrinsic mass effect on the right mainstem bronchus. 5. Left lower lobe pulmonary mass. 6. 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 7. Alcohol abuse. 8. Former tobacco abuse. 9. Starvation ketosis. 10. Hyperglycemia. 11. Hypernatremia. 12. Failure to thrive. 13. Hypokalemia. PLAN: Continue oxygen to maintain saturations greater than or equal to 88%. Continue current medications, which have been reviewed. Potassium has been replaced. Continue with IV fluid hydration; recommend 0.45. Continue GI and DVT prophylaxis. Will follow patient closely with you, making further changes as necessary.
[2016-12-19 17:23] LABS: Glucose,Whole Blood 224 mg/dL (75-99)
[2016-12-19] MEDS: TAMSULOSIN 0.4 MG CAP.ER.24H PO SCH (18:07)
[2016-12-19] MEDS: QUEtiapine 25 MG TAB PO SCH (18:07)
[2016-12-19] MEDS: PIPERACILLIN-TAZOBACTAM 3.375 GM in DEXTROSE/WATER 1 50ML.BAG IVPB SCH (18:22)
[2016-12-19 20:21] LABS: Glucose,Whole Blood 159 mg/dL (75-99)
[2016-12-20] MEDS: PIPERACILLIN-TAZOBACTAM 3.375 GM in DEXTROSE/WATER 1 50ML.BAG IVPB SCH ×3 (00:27→16:26)
[2016-12-20] MEDS: ACETAMINOPHEN IV (For NPO) 1,000 MG in EMPTY BAG 1 BAG IVPB SCH ×2 (06:25→12:44)
[2016-12-20] MEDS: DEXTROSE 5% IN WATER 1,000 ML IV SCH (06:27)
[2016-12-20 06:54] LABS: Glucose,Whole Blood 161 mg/dL (75-99)
--- NOTE | 2016-12-20 07:32 | XR ---
EXAMINATION TYPE: XR chest 1V portable DATE OF EXAM: 12/19/2016 7:53 PM COMPARISON: Prior chest x-ray November HISTORY: Fever, pneumonia TECHNIQUE: Single frontal view of the chest is obtained. FINDINGS: Patient is rotated. Heart remains enlarged. Interstitium is somewhat increased. There are overlying cardiac leads. Right paratracheal density is again noted. No pneumothorax or pleural effusi on evident. IMPRESSION: There may be a component of volume overload, pulmonary venous hypertension and interstit ial edema. Cardiomegaly.
[2016-12-20 08:36] LABS: CH 29.5; CHCM 32.9; HCT 43.8 % (39.0-53.0); HDW 3.02; HGB 14.4 gm/dL (13.0-17.5); MCH 29.6 pg (25.0-35.0); MCHC 32.8 g/dL (31.0-37.0); MCV 90.3 fL (80.0-100.0); Mean Platelet Volume 7.6; RBC 4.85 m/uL (4.30-5.90); RDW 13.4 % (11.5-15.5); WBC 11.5 k/uL (3.8-10.6)
[2016-12-20 08:55] LABS: ALT 414 U/L (21-72); AST 386 U/L (17-59); Alkaline Phosphatase 431 U/L (38-126); Anion Gap 10 mmol/L; Blood Urea Nitrogen 41 mg/dL (9-20); Calcium 9.3 mg/dL (8.4-10.2); Carbon Dioxide 25 mmol/L (22-30); Glucose 190 mg/dL (74-99); Non-African American GFR(MDRD) >60 (>60 ml/min/1.73 sqM); Potassium 3.6 mmol/L (3.5-5.1); Sodium 156 mmol/L (137-145); Total Bilirubin 2.8 mg/dL (0.2-1.3); Total Protein 6.2 g/dL (6.3-8.2)
[2016-12-20 09:04] LABS: Chloride 121 mmol/L (98-107)
[2016-12-20] MEDS: MEGESTROL 400 MG/10 ML CUP PO SCH (09:09)
[2016-12-20] MEDS: POTASSIUM CHLORIDE ER 20 MEQ TAB.ER PO SCH (09:10)
[2016-12-20] MEDS: PANTOPRAZOLE 40 MG/10 ML VIAL IVP SCH (09:10)
[2016-12-20] MEDS: LISINOPRIL 20 MG TAB PO SCH (09:10)
[2016-12-20] MEDS: TRIAMCINOLONE ACET 0.5% CREAM 15 GM TUBE TOPICAL SCH ×2 (09:11→22:57)
[2016-12-20] MEDS: 1: MVI, ADULT NO.4 WITH VIT K 10 ML, THIAMINE 100 MG, FOLIC ACID 1 MG in SODIUM CHLORIDE IV SCH ×8 (10:50→11:02)
[2016-12-20] MEDS: INSULIN LISPRO (humaLOG) 300 UNIT/3 ML VIAL SQ SCH ×4 (10:52→22:55)
[2016-12-20] MEDS: GABAPENTIN 100 MG CAP PO SCH ×2 (11:03→22:46)
[2016-12-20] MEDS: amLODIPine 10 MG TAB PO SCH (11:03)
[2016-12-20] MEDS: ISOSORBIDE MONONITRATE ER 30 MG TAB.ER.24H PO SCH (11:03)
[2016-12-20] MEDS: FUROSEMIDE 40 MG TAB PO SCH (11:03)
[2016-12-20 11:55] LABS: Glucose,Whole Blood 224 mg/dL (75-99)
--- NOTE | 2016-12-20 13:02 | P.PN ---
Subjective Principal diagnosis: DT's, lung mass Patient seen and examined with his and son at bedside. The patient's is extremely tearful. Apparently the patient asked her "where's my ." And this was very disturbing to her. The patient is more conversational today. He is asking where he is. He told his son he has to go to the bathroom. Objective - Vital Signs Vital signs: Vital Signs Temp 98.4 F 12/20/16 07:00 Pulse 70 12/20/16 08:00 Resp 22 12/20/16 08:00 BP 136/71 12/20/16 07:00 Pulse Ox 99 12/20/16 07:00 Intake & Output 12/19/16 12/20/16 12/20/16 18:59 06:59 18:59 Intake Total 300 2125 Output Total 900 Balance 300 1225 Weight 67 kg Intake: IV 200 1535 ACETAMINOPHEN IV (For NPO 100 ) 1,000 mg In Empty Bag 1 bag @ 400 mls/hr IVPB Q6HR HONEY Rx#:[id number] Mvi, Adult No.4 with Vit 1200 K 10 ml Thiamine 100 mg Folic Acid 1 mg In Sodium Chloride 0.9% 1,000 ml @ 100 mls/hr IV .BY DURATION HONEY Rx#: [id number] Piperacillin-Tazobactam 3 75 .375 gm In Dextrose/Water 1 50ml.bag @ 12.5 mls/hr IVPB Q8HR HONEY Rx#: [id number] Sodium Chloride 0.45% 1, 160 000 ml @ 40 mls/hr IV . Q24H HONEY Rx#:[id number] Sodium Chloride 0.9% 1, 200 000 ml @ 100 mls/hr IV . BY DURATION HONEY Rx#: [id number] Intake, IV Titration 100 Amount Potassium Chloride 20 meq 100 Lidocaine 2% Inj 20 mg In Sodium Chloride 0.9% 100 ml @ 55.5 mls/hr IVPB Q2HR HONEY Rx#:[id number] Oral 590 Output: Urine 900 Other: Voiding Method Indwelling Catheter Indwelling Catheter Indwelling Catheter - Exam Gen.: More alert today, trying to communicate Cardiovascular: Regular rate and rhythm, S1/S2 Lungs: Diminished breath sounds bilaterally no wheezes rales or rhonchi Abdomen: Soft nontender nondistended positive bowel sounds Extremities no edema - Labs CBC & Chem 7: 12/20/16 07:50 12/20/16 07:50 Labs: Abnormal Lab Results - Last 24 Hours (Table) 12/19/16 12/19/16 12/19/16 Range/Units 15:22 17:20 20:20 WBC (3.8-10.6) k/uL Plt Count (150-450) k/uL Sodium (137-145) mmol/L Chloride (98-107) mmol/L BUN (9-20) mg/dL Glucose (74-99) mg/dL POC Glucose (mg/dL) 224 H 159 H (75-99) mg/dL Plasma Lactic Acid Hernán 2.1 H (0.7-2.0) mmol/L Total Bilirubin (0.2-1.3) mg/dL AST (17-59) U/L ALT (21-72) U/L Alkaline Phosphatase (38-126) U/L Total Protein (6.3-8.2) g/dL Albumin (3.5-5.0) g/dL 12/20/16 12/20/16 12/20/16 Range/Units 06:50 07:50 07:50 WBC 11.5 H (3.8-10.6) k/uL Plt Count 136 L (150-450) k/uL Sodium 156 H (137-145) mmol/L Chloride 121 H* (98-107) mmol/L BUN 41 H (9-20) mg/dL Glucose 190 H (74-99) mg/dL POC Glucose (mg/dL) 161 H (75-99) mg/dL Plasma Lactic Acid Hernán (0.7-2.0) mmol/L Total Bilirubin 2.8 H (0.2-1.3) mg/dL AST 386 H (17-59) U/L ALT 414 H (21-72) U/L Alkaline Phosphatase 431 H (38-126) U/L Total Protein 6.2 L (6.3-8.2) g/dL Albumin 2.8 L (3.5-5.0) g/dL 12/20/16 Range/Units 11:48 WBC (3.8-10.6) k/uL Plt Count (150-450) k/uL Sodium (137-145) mmol/L Chloride (98-107) mmol/L BUN (9-20) mg/dL Glucose (74-99) mg/dL POC Glucose (mg/dL) 224 H (75-99) mg/dL Plasma Lactic Acid Hernán (0.7-2.0) mmol/L Total Bilirubin (0.2-1.3) mg/dL AST (17-59) U/L ALT (21-72) U/L Alkaline Phosphatase (38-126) U/L Total Protein (6.3-8.2) g/dL Albumin (3.5-5.0) g/dL Microbiology - Last 24 Hours (Table) 12/19/16 17:00 Blood Culture Gram Stain - Preliminary Blood 12/19/16 17:00 Blood Culture - Preliminary Blood Assessment and Plan Plan: Toxic metabolic encephalopathy Active delirium tremens Extensive conglomerate mediastinal lymphadenopathy Extrinsic mass effect on the right mainstem bronchus Left lower lobe pulmonary mass 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 Hyperglycemia Hypernatremia Failure to thrive O2 to maintain saturation greater than or equal to 88% CIWA protocol Awaiting biopsy results IV fluid hydration - change fluids to D5W Monitor Na Oncology recommendations Re-consult speech therapy for swallow evaluation Family is asking to have a family meeting regarding the patient's condition and prognosis. They are advised that this would be best done after biopsy results are available in order to make a more informed decision. GI and DVT prophylaxis
[2016-12-20] MEDS ORDERED: FUROSEMIDE 10 MG/ML 4 ML VIAL IV STA (13:04)
--- NOTE | 2016-12-20 15:03 | P.PN ---
Subjective This is a pleasant 81-year-old lady patient of Dr. shantanu yoo. He has underlying history of diabetes mellitus type 2, CAD, BPH, who has chronic alcoholism. Apparently he is at baseline until he had quit alcohol completely 2 weeks ago December 04 for unknown reasons, patient has not had any blood, since then including beer. He was noticed by family to have altered mentation to include hallucinations this will, and auditory hallucinations, diminished appetite and increasing weakness. Patient had not eating for the past one to 4 hours, and only has slept 24 hours within the past 7 days, weight loss of 20 pounds, In the emergency room he was seen secondary to the acute dehydration, he was found to be mentally altered with hypercalcemia, dehydration, CAT scan of the chest showed significant abnormality include of 4.8 cm left upper lobe pulmonary mass with lower lobe metastatic pulmonary nodules up to 7 mm, conglomerate mediastinal lymph node extending from thoracic inlet down to subcarina and paraesophageal region measuring 13.4 cm craniocaudal small cell carcinoma is high in the differential, extrinsic mass effect mild did not O's right-sided airway or she is metastatic disease with soft tissue replacing T8 vertebral body brain CT shows mild to moderate diffuse age-related cerebral atrophy without any significant interval changes epi noted CT abdomen and pelvis shows additional all she is metastatic lesion 5.1 cm destroying the central portion of the left iliac bone with extra osseous soft tissue extension him a also 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 Yanes and Dr. Moralse. Patient was started on ciwa protocol, Seroquel 25 hs for hallucinations, and IV Aredia for hypercalcemia IV Lasix for forced diuresis , iv hydration 12/16: Bone scan as limited sensitivity of the bone scan given the apparently lytic nature of the 2 osseous lesions seen on the CAT scans of the same day. The left iliac wing lesion shows up as a photopenic defect. The T8 lesion is not clearly appreciated. Patient is also followed by Dr. Yanes. Plan is for bone biopsy. Patient is very lethargic this morning thought to be due to Seroquel which will be given at supper time versus bedtime. IV fluids it 125 mL per hour and Lasix at 40 mg every 12 hours IV. 5: Calcium is improved to 11.7 and ionized calcium at 6.5. Low blood glucoses running between 109 and 182. Plan for interventional radiology to do biopsy today but patient needs to be completely still for procedure. We have ordered Ativan 1 mg IV before the procedure and repeat 1 which will hopefully be able to complete the procedure. Librium was started yesterday. 12/18: Patient was unable to undergo biopsy with Ativan. Anesthesia has been consult to to assist with anesthesia for biopsy. Patient is been doing better on Librium. He was able to take his medications this morning. 12/19: Patient underwent the she biopsy today after anesthesia sedation, patient' s is at bedside patient has still ongoing hallucinations though it is milder, no restraints needed, he is not eating at all, hypercalcemia has improved, noted increasing sodium levels D5w was started and normal saline infusion is discontinued, patient still needs IV hydration secondary to lack of oral intake, dry mouth is noted, patient is noted to be febrile, possible aspiration, blood cultures are obtained for the temperature and started on Zosyn and Levaquin IV 12/20: Patient's mental status is slightly improved and he is able to converse minimally with family and states that he wants to go home. He is no longer fighting with the staff. His mental status is usually best in the morning and he does suffer from owners. Afternoon and Xanax has been added. Sodium 156 and chloride 121. Liver function tests are all elevated from yesterday. Patient continues with no oral intake and dietitian is recommending PEG tube. Speech therapy to evaluate this afternoon. Megace was started yesterday. Repeat chest x-ray shows component of volume overload, pulmonary venous hypertension and interstitial edema. Cardiomegaly. Lasix 40 mg IV push 1 now and twice daily. Temperature 101.4 last evening. Discussed with patient's and his son patient's poor prognosis and gave option of hospice care but at this time they are waiting for biopsy and it sounds like they are leaning towards aggressive treatment although they understand he does not have very long to live. Objective - Vital Signs Vital signs: Vital Signs Temp 98.4 F 12/20/16 07:00 Pulse 70 12/20/16 08:00 Resp 22 12/20/16 08:00 BP 136/71 12/20/16 07:00 Pulse Ox 99 12/20/16 07:00 Intake & Output 12/19/16 12/20/16 12/20/16 18:59 06:59 18:59 Intake Total 300 2125 Output Total 900 Balance 300 1225 Weight 67 kg Intake: IV 200 1535 ACETAMINOPHEN IV (For NPO 100 ) 1,000 mg In Empty Bag 1 bag @ 400 mls/hr IVPB Q6HR HONEY Rx#:[id number] Mvi, Adult No.4 with Vit 1200 K 10 ml Thiamine 100 mg Folic Acid 1 mg In Sodium Chloride 0.9% 1,000 ml @ 100 mls/hr IV .BY DURATION HONEY Rx#: [id number] Piperacillin-Tazobactam 3 75 .375 gm In Dextrose/Water 1 50ml.bag @ 12.5 mls/hr IVPB Q8HR HONEY Rx#: [id number] Sodium Chloride 0.45% 1, 160 000 ml @ 40 mls/hr IV . Q24H HONEY Rx#:[id number] Sodium Chloride 0.9% 1, 200 000 ml @ 100 mls/hr IV . BY DURATION HONEY Rx#: [id number] Intake, IV Titration 100 Amount Potassium Chloride 20 meq 100 Lidocaine 2% Inj 20 mg In Sodium Chloride 0.9% 100 ml @ 55.5 mls/hr IVPB Q2HR HONEY Rx#:[id number] Oral 590 Output: Urine 900 Other: Voiding Method Indwelling Catheter Indwelling Catheter Indwelling Catheter - Exam General appearance: average body habitus, cooperative (To contact to recent Ativan use), no acute distress - EENT Eyes: anicteric sclerae, PERRLA, normal appearance ENT: NA/AT - Respiratory Respiratory: bilateral: CTA, diminished - Cardiovascular Rhythm: regular Heart sounds: normal: S1, S2 Abnormal Heart Sounds: no systolic murmur, no diastolic murmur, no rub, no S3 Gallop, no S4 Gallop, no click, no other - Gastrointestinal General gastrointestinal: normal bowel sounds, soft - Integumentary Integumentary: normal, normal turgor - Neurologic Neurologic: CNII-XII intact - Psychiatric Awake but confused - Labs CBC & Chem 7: 12/20/16 07:50 12/20/16 07:50 Labs: Abnormal Lab Results - Last 24 Hours (Table) 12/19/16 12/19/16 12/19/16 Range/Units 11:46 15:22 17:20 WBC (3.8-10.6) k/uL Plt Count (150-450) k/uL Sodium (137-145) mmol/L Chloride (98-107) mmol/L BUN (9-20) mg/dL Glucose (74-99) mg/dL POC Glucose (mg/dL) 161 H 224 H (75-99) mg/dL Plasma Lactic Acid Hernán 2.1 H (0.7-2.0) mmol/L Total Bilirubin (0.2-1.3) mg/dL AST (17-59) U/L ALT (21-72) U/L Alkaline Phosphatase (38-126) U/L Total Protein (6.3-8.2) g/dL Albumin (3.5-5.0) g/dL 12/19/16 12/20/16 12/20/16 Range/Units 20:20 06:50 07:50 WBC 11.5 H (3.8-10.6) k/uL Plt Count 136 L (150-450) k/uL Sodium (137-145) mmol/L Chloride (98-107) mmol/L BUN (9-20) mg/dL Glucose (74-99) mg/dL POC Glucose (mg/dL) 159 H 161 H (75-99) mg/dL Plasma Lactic Acid Hernán (0.7-2.0) mmol/L Total Bilirubin (0.2-1.3) mg/dL AST (17-59) U/L ALT (21-72) U/L Alkaline Phosphatase (38-126) U/L Total Protein (6.3-8.2) g/dL Albumin (3.5-5.0) g/dL 12/20/16 Range/Units 07:50 WBC (3.8-10.6) k/uL Plt Count (150-450) k/uL Sodium 156 H (137-145) mmol/L Chloride 121 H* (98-107) mmol/L BUN 41 H (9-20) mg/dL Glucose 190 H (74-99) mg/dL POC Glucose (mg/dL) (75-99) mg/dL Plasma Lactic Acid Hernán (0.7-2.0) mmol/L Total Bilirubin 2.8 H (0.2-1.3) mg/dL AST 386 H (17-59) U/L ALT 414 H (21-72) U/L Alkaline Phosphatase 431 H (38-126) U/L Total Protein 6.2 L (6.3-8.2) g/dL Albumin 2.8 L (3.5-5.0) g/dL Microbiology - Last 24 Hours (Table) 12/19/16 17:00 Blood Culture Gram Stain - Preliminary Blood 12/19/16 17:00 Blood Culture - Preliminary Blood Assessment and Plan Plan: 1. Severe hypercalcemia secondary to metastatic lesions, patient requires IV hydration and IV Lasix 20 mg every 12 hours, folic acid will be placed, patient will be started on IV Aredia 60 mg 1, labs monitored, cortisol level will be obtained EKG would be monitored patient would be on remote telemetry. Lasix 40 mg IV every 12 hours. Patient is continued on IV fluids at 75 mL per hour 2. 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 Lung mass suspicious of. 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 Consults with Drs. Morales and Joaquín appreciated. Interventional radiology performed a biopsy with anesthesia. 5. Severe protein calorie malnutrition due to anorexia secondary to multifactorial causes including malignancy and hypercalcemia, patient currently is made nothing by mouth secondary to mental status and speech therapy is evaluating. The case added 6. Acute delirium tremens with history of alcohol abuse. Banana bag daily and CIWA precautions, Librium 7. CODE STATUS full code no prolonged intubation GI prophylaxis and DVT prophylaxis Discharge plan: To be determined Impression and plan of care have been directed as dictated by the signing physician. Sue Solis nurse practitioner acting as scribe for signing physician. Time with Patient: Greater than 30
[2016-12-20] MEDS ORDERED: RX INFO: IV CONTRAST WAS GIVEN 1 EACH MISC MISCELLANE PRN (15:55)
[2016-12-20] MEDS: ALPRAZolam 0.25 MG TAB PO PRN ×2 (16:21→20:15)
[2016-12-20] MEDS: LEVOFLOXACIN 500MG-D5W PMX 500 MG in DEXTROSE/WATER 1 100ML.BAG IVPB SCH (16:27)
--- NOTE | 2016-12-20 17:08 | P.PN ---
Subjective Principal diagnosis: Metastatic malignancy The patient is awake, reasonably alert, and able to follow some commands. His speech is fairly clear, and he is able to speak complete sentences. However he remains somewhat confused. Objective - Vital Signs Vital signs: Vital Signs Temp 97.1 F L 12/20/16 15:00 Pulse 86 12/20/16 15:00 Resp 16 12/20/16 15:00 BP 143/74 12/20/16 15:00 Pulse Ox 95 12/20/16 15:00 Intake & Output 12/19/16 12/20/16 12/20/16 18:59 06:59 18:59 Intake Total 300 2125 Output Total 900 1200 Balance 300 1225 -1200 Weight 67 kg 67 kg Intake: IV 200 1535 ACETAMINOPHEN IV (For NPO 100 ) 1,000 mg In Empty Bag 1 bag @ 400 mls/hr IVPB Q6HR HONEY Rx#:[id number] Mvi, Adult No.4 with Vit 1200 K 10 ml Thiamine 100 mg Folic Acid 1 mg In Sodium Chloride 0.9% 1,000 ml @ 100 mls/hr IV .BY DURATION HONEY Rx#: [id number] Piperacillin-Tazobactam 3 75 .375 gm In Dextrose/Water 1 50ml.bag @ 12.5 mls/hr IVPB Q8HR HONEY Rx#: [id number] Sodium Chloride 0.45% 1, 160 000 ml @ 40 mls/hr IV . Q24H HONEY Rx#:[id number] Sodium Chloride 0.9% 1, 200 000 ml @ 100 mls/hr IV . BY DURATION HONEY Rx#: [id number] Intake, IV Titration 100 Amount Potassium Chloride 20 meq 100 Lidocaine 2% Inj 20 mg In Sodium Chloride 0.9% 100 ml @ 55.5 mls/hr IVPB Q2HR HONEY Rx#:[id number] Oral 590 Output: Urine 900 1200 Other: Voiding Method Indwelling Catheter Indwelling Catheter Indwelling Catheter - Constitutional General appearance: Present: no acute distress - EENT Eyes: Present: EOMI, PERRLA ENT: Present: hearing grossly normal, normal oropharynx - Respiratory Respiratory: bilateral: diminished - Cardiovascular Rhythm: regular Heart sounds: normal: S1, S2 - Gastrointestinal General gastrointestinal: Present: normal bowel sounds, soft - Integumentary Integumentary: Present: normal - Neurologic Neurologic: Present: CNII-XII intact - Musculoskeletal Musculoskeletal: Present: generalized weakness, strength equal bilaterally - Labs CBC & Chem 7: 12/20/16 07:50 12/20/16 07:50 Labs: Abnormal Lab Results - Last 24 Hours (Table) 12/19/16 12/19/16 12/19/16 Range/Units 15:22 17:20 20:20 WBC (3.8-10.6) k/uL Plt Count (150-450) k/uL Sodium (137-145) mmol/L Chloride (98-107) mmol/L BUN (9-20) mg/dL Glucose (74-99) mg/dL POC Glucose (mg/dL) 224 H 159 H (75-99) mg/dL Plasma Lactic Acid Hernán 2.1 H (0.7-2.0) mmol/L Total Bilirubin (0.2-1.3) mg/dL AST (17-59) U/L ALT (21-72) U/L Alkaline Phosphatase (38-126) U/L Total Protein (6.3-8.2) g/dL Albumin (3.5-5.0) g/dL 12/20/16 12/20/16 12/20/16 Range/Units 06:50 07:50 07:50 WBC 11.5 H (3.8-10.6) k/uL Plt Count 136 L (150-450) k/uL Sodium 156 H (137-145) mmol/L Chloride 121 H* (98-107) mmol/L BUN 41 H (9-20) mg/dL Glucose 190 H (74-99) mg/dL POC Glucose (mg/dL) 161 H (75-99) mg/dL Plasma Lactic Acid Hernán (0.7-2.0) mmol/L Total Bilirubin 2.8 H (0.2-1.3) mg/dL AST 386 H (17-59) U/L ALT 414 H (21-72) U/L Alkaline Phosphatase 431 H (38-126) U/L Total Protein 6.2 L (6.3-8.2) g/dL Albumin 2.8 L (3.5-5.0) g/dL 12/20/16 Range/Units 11:48 WBC (3.8-10.6) k/uL Plt Count (150-450) k/uL Sodium (137-145) mmol/L Chloride (98-107) mmol/L BUN (9-20) mg/dL Glucose (74-99) mg/dL POC Glucose (mg/dL) 224 H (75-99) mg/dL Plasma Lactic Acid Hernán (0.7-2.0) mmol/L Total Bilirubin (0.2-1.3) mg/dL AST (17-59) U/L ALT (21-72) U/L Alkaline Phosphatase (38-126) U/L Total Protein (6.3-8.2) g/dL Albumin (3.5-5.0) g/dL Microbiology - Last 24 Hours (Table) 12/19/16 17:00 Blood Culture Gram Stain - Preliminary Blood 12/19/16 17:00 Blood Culture - Preliminary Blood Assessment and Plan (1) Bone lesion Narrative/Plan: Left iliac bone lesion was biopsied. Results are pending. Bone scan did not show any specific uptake, indicating that the observed bone lesions are likely lytic (left iliac, and T8) Status: Acute (2) Lung mass Narrative/Plan: The clinical picture is consistent with a metastatic malignancy, clinically, most likely of lung origin. This was discussed with the patient's family. We' re awaiting pathology results, for tissue diagnosis. A computed tomography scan of the brain will be ordered with contrast in the meantime. The family has expressed the wish to have a family meeting, once final diagnoses available, to discuss options, including even comfort care if appropriate. Status: Acute (3) Hypercalcemia Narrative/Plan: Resolved with treatment. This is felt to be malignant Status: Acute
[2016-12-20 17:23] LABS: Glucose,Whole Blood 286 mg/dL (75-99)
--- NOTE | 2016-12-20 17:24 | CT ---
EXAMINATION TYPE: CT brain w con DATE OF EXAM: 12/20/2016 5:14 PM COMPARISON: Prior CT brain 14 Jan 2017 HISTORY: Altered mental status, R/O mets., Lung mass CT DLP: 886.6 mGycm Automated exposure control for dose reduction was used. CONTRAST: CT scan of the head is performed with IV Contrast, patient injected with 100 mL of Omnipaque 300. FINDINGS: There is no abnormal enhancing mass or midline shift identified. The ventricles and sulci are within normal limits in size. The globes are intact and the visualized sinuses are clear. IMPRESSION: Stable exam. No enhancing mass to suggest metastasis
[2016-12-20] MEDS: [UNRECOGNIZED DRUG - REMARK] IV SCH ×3 (17:51)
[2016-12-20] MEDS: TAMSULOSIN 0.4 MG CAP.ER.24H PO SCH (18:00)
[2016-12-20] MEDS: QUEtiapine 25 MG TAB PO SCH (18:00)
[2016-12-20 20:59] LABS: Glucose,Whole Blood 216 mg/dL (75-99)
[2016-12-20] MEDS: FUROSEMIDE 10 MG/ML 4 ML VIAL IV SCH (22:00)
[2016-12-20] MEDS: ALPRAZolam 0.25 MG TAB PO SCH (22:56)
[2016-12-21] MEDS: PIPERACILLIN-TAZOBACTAM 3.375 GM in DEXTROSE/WATER 1 50ML.BAG IVPB SCH ×3 (01:18→17:00)
[2016-12-21] MEDS: SODIUM CHLORIDE 0.45% 1,000 ML IV SCH (01:54)
[2016-12-21 07:58] LABS: Glucose,Whole Blood 189 mg/dL (75-99)
[2016-12-21 08:00] LABS: CH 29.3; CHCM 32.7; HCT 48.9 % (39.0-53.0); HGB 16.2 gm/dL (13.0-17.5); MCH 29.9 pg (25.0-35.0); MCHC 33.2 g/dL (31.0-37.0); MCV 90.1 fL (80.0-100.0); Mean Platelet Volume 7.7; RBC 5.42 m/uL (4.30-5.90); WBC 9.8 k/uL (3.8-10.6)
[2016-12-21] MEDS: POTASSIUM CHLORIDE ER 20 MEQ TAB.ER PO SCH (08:17)
[2016-12-21] MEDS: ISOSORBIDE MONONITRATE ER 30 MG TAB.ER.24H PO SCH (08:17)
[2016-12-21] MEDS: GABAPENTIN 100 MG CAP PO SCH ×2 (08:17→21:51)
[2016-12-21] MEDS: MEGESTROL 400 MG/10 ML CUP PO SCH (08:17)
[2016-12-21] MEDS: LISINOPRIL 20 MG TAB PO SCH (08:17)
[2016-12-21] MEDS: PANTOPRAZOLE 40 MG/10 ML VIAL IVP SCH (08:17)
[2016-12-21] MEDS: FUROSEMIDE 10 MG/ML 4 ML VIAL IV SCH ×2 (08:18→21:49)
[2016-12-21] MEDS: amLODIPine 10 MG TAB PO SCH (08:18)
[2016-12-21] MEDS: ALPRAZolam 0.25 MG TAB PO SCH ×3 (08:18→23:49)
[2016-12-21] MEDS: INSULIN LISPRO (humaLOG) 300 UNIT/3 ML VIAL SQ SCH ×4 (08:18→21:24)
[2016-12-21] MEDS: FUROSEMIDE 40 MG TAB PO SCH (08:18)
[2016-12-21 08:21] LABS: ALT 275 U/L (21-72); AST 146 U/L (17-59); Alkaline Phosphatase 402 U/L (38-126); Anion Gap 10 mmol/L; Blood Urea Nitrogen 33 mg/dL (9-20); Calcium 9.3 mg/dL (8.4-10.2); Carbon Dioxide 23 mmol/L (22-30); Chloride 117 mmol/L (98-107); Glucose 207 mg/dL (74-99); Non-African American GFR(MDRD) >60 (>60 ml/min/1.73 sqM); Sodium 150 mmol/L (137-145); Total Protein 6.8 g/dL (6.3-8.2)
[2016-12-21 08:28] LABS: Potassium 3.5 mmol/L (3.5-5.1)
[2016-12-21] MEDS: TRIAMCINOLONE ACET 0.5% CREAM 15 GM TUBE TOPICAL SCH ×2 (09:31→21:51)
--- NOTE | 2016-12-21 10:27 | P.PN ---
Subjective This is a pleasant 81-year-old lady patient of Dr. shantanu yoo. He has underlying history of diabetes mellitus type 2, CAD, BPH, who has chronic alcoholism. Apparently he is at baseline until he had quit alcohol completely 2 weeks ago December 04 for unknown reasons, patient has not had any blood, since then including beer. He was noticed by family to have altered mentation to include hallucinations this will, and auditory hallucinations, diminished appetite and increasing weakness. Patient had not eating for the past one to 4 hours, and only has slept 24 hours within the past 7 days, weight loss of 20 pounds, In the emergency room he was seen secondary to the acute dehydration, he was found to be mentally altered with hypercalcemia, dehydration, CAT scan of the chest showed significant abnormality include of 4.8 cm left upper lobe pulmonary mass with lower lobe metastatic pulmonary nodules up to 7 mm, conglomerate mediastinal lymph node extending from thoracic inlet down to subcarina and paraesophageal region measuring 13.4 cm craniocaudal small cell carcinoma is high in the differential, extrinsic mass effect mild did not O's right-sided airway or she is metastatic disease with soft tissue replacing T8 vertebral body brain CT shows mild to moderate diffuse age-related cerebral atrophy without any significant interval changes epi noted CT abdomen and pelvis shows additional all she is metastatic lesion 5.1 cm destroying the central portion of the left iliac bone with extra osseous soft tissue extension him a also 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 Yanes and Dr. Morales. Patient was started on ciwa protocol, Seroquel 25 hs for hallucinations, and IV Aredia for hypercalcemia IV Lasix for forced diuresis , iv hydration 12/16: Bone scan as limited sensitivity of the bone scan given the apparently lytic nature of the 2 osseous lesions seen on the CAT scans of the same day. The left iliac wing lesion shows up as a photopenic defect. The T8 lesion is not clearly appreciated. Patient is also followed by Dr. Yanes. Plan is for bone biopsy. Patient is very lethargic this morning thought to be due to Seroquel which will be given at supper time versus bedtime. IV fluids it 125 mL per hour and Lasix at 40 mg every 12 hours IV. 5: Calcium is improved to 11.7 and ionized calcium at 6.5. Low blood glucoses running between 109 and 182. Plan for interventional radiology to do biopsy today but patient needs to be completely still for procedure. We have ordered Ativan 1 mg IV before the procedure and repeat 1 which will hopefully be able to complete the procedure. Librium was started yesterday. 12/18: Patient was unable to undergo biopsy with Ativan. Anesthesia has been consult to to assist with anesthesia for biopsy. Patient is been doing better on Librium. He was able to take his medications this morning. 12/19: Patient underwent the she biopsy today after anesthesia sedation, patient' s is at bedside patient has still ongoing hallucinations though it is milder, no restraints needed, he is not eating at all, hypercalcemia has improved, noted increasing sodium levels D5w was started and normal saline infusion is discontinued, patient still needs IV hydration secondary to lack of oral intake, dry mouth is noted, patient is noted to be febrile, possible aspiration, blood cultures are obtained for the temperature and started on Zosyn and Levaquin IV 12/20: Patient's mental status is slightly improved and he is able to converse minimally with family and states that he wants to go home. He is no longer fighting with the staff. His mental status is usually best in the morning and he does suffer from owners. Afternoon and Xanax has been added. Sodium 156 and chloride 121. Liver function tests are all elevated from yesterday. Patient continues with no oral intake and dietitian is recommending PEG tube. Speech therapy to evaluate this afternoon. Megace was started yesterday. Repeat chest x-ray shows component of volume overload, pulmonary venous hypertension and interstitial edema. Cardiomegaly. Lasix 40 mg IV push 1 now and twice daily. Temperature 101.4 last evening. Discussed with patient's and his son patient's poor prognosis and gave option of hospice care but at this time they are waiting for biopsy and it sounds like they are leaning towards aggressive treatment although they understand he does not have very long to live. 12/21: Patient remains confused but cooperative and follows some simple commands. PT is attempting to work with him today. CAT scan of the brain did not show any metastatic disease. Awaiting biopsy report. Brad discussion with patient' s son regarding his prognosis. Objective - Vital Signs Vital signs: Vital Signs Temp 97.7 F 12/21/16 07:11 Pulse 80 12/21/16 07:11 Resp 20 12/21/16 07:11 BP 129/63 12/21/16 07:11 Pulse Ox 93 L 12/21/16 07:11 Intake & Output 12/20/16 12/21/16 12/21/16 18:59 06:59 18:59 Intake Total 1350 20 Output Total 1200 1450 350 Balance -1200 -100 -330 Weight 67 kg Intake: IV 50 Piperacillin-Tazobactam 3 50 .375 gm In Dextrose/Water 1 50ml.bag @ 12.5 mls/hr IVPB Q8HR HONEY Rx#: [id number] Intake, IV Titration 1300 Amount Dextrose 5% in Water 1, 1300 000 ml @ 75 mls/hr IV .BY DURATION HONEY Rx#: [id number] Oral 20 Output: Urine 1200 1450 350 Uretheral (Ferrer) 1000 Other: Voiding Method Indwelling Catheter Indwelling Catheter # Bowel Movements 0 - Exam General appearance: average body habitus, cooperative (To contact to recent Ativan use), no acute distress - EENT Eyes: anicteric sclerae, PERRLA, normal appearance ENT: NA/AT - Respiratory Respiratory: bilateral: CTA, diminished - Cardiovascular Rhythm: regular Heart sounds: normal: S1, S2 Abnormal Heart Sounds: no systolic murmur, no diastolic murmur, no rub, no S3 Gallop, no S4 Gallop, no click, no other - Gastrointestinal General gastrointestinal: normal bowel sounds, soft - Integumentary Integumentary: normal, normal turgor - Neurologic Neurologic: CNII-XII intact - Psychiatric Awake but confused - Labs CBC & Chem 7: 12/21/16 07:39 12/21/16 07:39 Labs: Abnormal Lab Results - Last 24 Hours (Table) 12/20/16 12/20/16 12/20/16 Range/Units 11:48 17:20 20:58 Plt Count (150-450) k/uL Sodium (137-145) mmol/L Chloride (98-107) mmol/L BUN (9-20) mg/dL Glucose (74-99) mg/dL POC Glucose (mg/dL) 224 H 286 H 216 H (75-99) mg/dL Total Bilirubin (0.2-1.3) mg/dL AST (17-59) U/L ALT (21-72) U/L Alkaline Phosphatase (38-126) U/L Albumin (3.5-5.0) g/dL 12/21/16 12/21/16 12/21/16 Range/Units 07:39 07:39 07:55 Plt Count 120 L (150-450) k/uL Sodium 150 H (137-145) mmol/L Chloride 117 H (98-107) mmol/L BUN 33 H (9-20) mg/dL Glucose 207 H (74-99) mg/dL POC Glucose (mg/dL) 189 H (75-99) mg/dL Total Bilirubin 2.0 H (0.2-1.3) mg/dL AST 146 H (17-59) U/L ALT 275 H (21-72) U/L Alkaline Phosphatase 402 H (38-126) U/L Albumin 3.0 L (3.5-5.0) g/dL Microbiology - Last 24 Hours (Table) 12/19/16 17:00 Blood Culture Gram Stain - Preliminary Blood Blood Culture - Preliminary Gram Neg Bacilli 12/19/16 15:30 Blood Culture - Preliminary Blood No Growth after 24 hours 12/19/16 17:00 Blood Culture - Preliminary Blood Assessment and Plan Plan: 1. Severe hypercalcemia secondary to metastatic lesions, patient requires IV hydration and IV Lasix 20 mg every 12 hours, folic acid will be placed, patient will be started on IV Aredia 60 mg 1, labs monitored, cortisol level will be obtained EKG would be monitored patient would be on remote telemetry. Lasix 40 mg IV every 12 hours. Patient is continued on IV fluids at 75 mL per hour 2. 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 Lung mass suspicious of. 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 Consults with Drs. Morales and Joaquín appreciated. Interventional radiology performed a biopsy with anesthesia. 5. Severe protein calorie malnutrition due to anorexia secondary to multifactorial causes including malignancy and hypercalcemia, patient currently is made nothing by mouth secondary to mental status and speech therapy is evaluating. The case added 6. Acute delirium tremens with history of alcohol abuse. Banana bag daily and CIWA precautions, Librium 7. CODE STATUS full code no prolonged intubation GI prophylaxis and DVT prophylaxis Discharge plan: To be determined Impression and plan of care have been directed as dictated by the signing physician. Sue Solis nurse practitioner acting as scribe for signing physician. Time with Patient: Greater than 30
[2016-12-21 11:40] LABS: Glucose,Whole Blood 257 mg/dL (75-99)
[2016-12-21] MEDS: [UNRECOGNIZED DRUG - REMARK] IV SCH ×6 (13:58→21:51)
[2016-12-21] MEDS: LEVOFLOXACIN 500MG-D5W PMX 500 MG in DEXTROSE/WATER 1 100ML.BAG IVPB SCH (15:56)
--- NOTE | 2016-12-21 16:51 | PN ---
DATE OF SERVICE: 12/21/2016 CHIEF COMPLAINT: Confusion. Mr. Corey is seen today as a followup. He is confused. He is very weak, cachectic looking and is not reliable at all providing information which were provided from his at bedside. Overall he has no appetite. He is weak and tired. He did undergo a biopsy of iliac mass yesterday, results are pending. On physical examination, he is confused, cachectic looking. He does not appear to be in distress. His vital signs are temperature 97.7, pulse 80, respirations 20, blood pressure 129/63. HEENT: Normocephalic, atraumatic. He has scleral icterus. CHEST: Equal expansion bilaterally. Lungs reveal scattered rhonchi. HEART: Regular rate and rhythm. ABDOMEN: Soft. Extremities reveal no edema. SKIN: Multiple bruises on upper extremities. LABORATORY DATA: WBC of 9.8, hemoglobin 16.2, hematocrit 48.9, platelet 120. Sodium 150, potassium 3.5, chloride 117, BUN is 33, creatinine 0.9. Total bilirubin is 2.0. AST is 145, ALT is 274, alkaline phosphatase is 402. IMPRESSION: 1. Clinical and radiographic picture highly suggestive of metastatic bronchogenic carcinoma with bone metastases. 2. Very poor performance status and other comorbidities, especially the underlying dementia, which has been progressing over quite some time according to his . Overall his performance status has been rapidly declining as well. RECOMMENDATIONS: 1. We will await biopsy results. 2. I had a discussion with the patient and his at bedside. Overall prognosis is poor. Given his advanced age, poor performance status and other comorbid conditions, he may not be a candidate for systemic treatment. However, we will await final pathology report before making further recommendation.
[2016-12-21 16:59] LABS: Glucose,Whole Blood 282 mg/dL (75-99)
--- NOTE | 2016-12-21 17:16 | PN ---
He was seen on 12/21/2016. He is sleepy, but arousable. He does not seem to be in any pain. He is resting comfortably. His blood pressure is 129/63, respiratory rate 20, pulse rate of 80, temperature 97.7, O2 sat on room air is 93%. HEENT is unremarkable. Chest reveals decreased breath sounds. Cardiovascular system reveals an S1 and S2. Abdomen is soft. There is no edema. The patient is somewhat cachetic. White count is 9.8, hemoglobin 16.2. Sodium 150, potassium 3.5, chloride 117, bicarbonate 23, BUN 33, creatinine 0.96. Total bili of 2, AST 146, ALT 275, alkaline phosphatase 402. Albumin of 3. Calcium is 9.3. IMPRESSION AT THIS TIME: 1. Metabolic encephalopathy. 2. Delirium tremens. 3. Extrinsic mass affect on the right main bronchus. 4. Metastatic lung cancer. 5. Hypercalcemia. At this point in time, the patient's prognosis and performance status is poor. His condition is consistent with a metastatic malignancy, possibly due to lung origin. Await biopsy results. Continue supportive care at this time. His prognosis is guarded.
[2016-12-21] MEDS: QUEtiapine 25 MG TAB PO SCH (17:44)
[2016-12-21] MEDS: TAMSULOSIN 0.4 MG CAP.ER.24H PO SCH (17:44)
[2016-12-21 20:08] LABS: Glucose,Whole Blood 283 mg/dL (75-99)
[2016-12-22] MEDS: PIPERACILLIN-TAZOBACTAM 3.375 GM in DEXTROSE/WATER 1 50ML.BAG IVPB SCH ×4 (00:24→22:48)
[2016-12-22 07:28] LABS: Glucose,Whole Blood 226 mg/dL (75-99)
[2016-12-22] MEDS: TRIAMCINOLONE ACET 0.5% CREAM 15 GM TUBE TOPICAL SCH ×2 (08:36→20:23)
[2016-12-22] MEDS: GABAPENTIN 100 MG CAP PO SCH ×2 (08:37→20:18)
[2016-12-22] MEDS: FUROSEMIDE 10 MG/ML 4 ML VIAL IV SCH (08:37)
[2016-12-22] MEDS: PANTOPRAZOLE 40 MG/10 ML VIAL IVP SCH (08:37)
[2016-12-22] MEDS: LISINOPRIL 20 MG TAB PO SCH (08:37)
[2016-12-22] MEDS: POTASSIUM CHLORIDE ER 20 MEQ TAB.ER PO SCH ×3 (08:37→18:22)
[2016-12-22] MEDS: ISOSORBIDE MONONITRATE ER 30 MG TAB.ER.24H PO SCH (08:37)
[2016-12-22] MEDS: MEGESTROL 400 MG/10 ML CUP PO SCH ×2 (08:37→08:57)
[2016-12-22] MEDS: INSULIN LISPRO (humaLOG) 300 UNIT/3 ML VIAL SQ SCH ×4 (08:38→21:18)
[2016-12-22] MEDS: ALPRAZolam 0.25 MG TAB PO SCH ×3 (08:41→21:20)
[2016-12-22] MEDS: FUROSEMIDE 40 MG TAB PO SCH (10:22)
[2016-12-22 11:39] LABS: Glucose,Whole Blood 257 mg/dL (75-99)
--- NOTE | 2016-12-22 12:16 | P.PN ---
Subjective This is a pleasant 81-year-old lady patient of Dr. shantanu yoo. He has underlying history of diabetes mellitus type 2, CAD, BPH, who has chronic alcoholism. Apparently he is at baseline until he had quit alcohol completely 2 weeks ago December 04 for unknown reasons, patient has not had any blood, since then including beer. He was noticed by family to have altered mentation to include hallucinations this will, and auditory hallucinations, diminished appetite and increasing weakness. Patient had not eating for the past one to 4 hours, and only has slept 24 hours within the past 7 days, weight loss of 20 pounds, In the emergency room he was seen secondary to the acute dehydration, he was found to be mentally altered with hypercalcemia, dehydration, CAT scan of the chest showed significant abnormality include of 4.8 cm left upper lobe pulmonary mass with lower lobe metastatic pulmonary nodules up to 7 mm, conglomerate mediastinal lymph node extending from thoracic inlet down to subcarina and paraesophageal region measuring 13.4 cm craniocaudal small cell carcinoma is high in the differential, extrinsic mass effect mild did not O's right-sided airway or she is metastatic disease with soft tissue replacing T8 vertebral body brain CT shows mild to moderate diffuse age-related cerebral atrophy without any significant interval changes epi noted CT abdomen and pelvis shows additional all she is metastatic lesion 5.1 cm destroying the central portion of the left iliac bone with extra osseous soft tissue extension him a also 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 Yanes and Dr. Morales. Patient was started on ciwa protocol, Seroquel 25 hs for hallucinations, and IV Aredia for hypercalcemia IV Lasix for forced diuresis , iv hydration 12/16: Bone scan as limited sensitivity of the bone scan given the apparently lytic nature of the 2 osseous lesions seen on the CAT scans of the same day. The left iliac wing lesion shows up as a photopenic defect. The T8 lesion is not clearly appreciated. Patient is also followed by Dr. Yanes. Plan is for bone biopsy. Patient is very lethargic this morning thought to be due to Seroquel which will be given at supper time versus bedtime. IV fluids it 125 mL per hour and Lasix at 40 mg every 12 hours IV. 5: Calcium is improved to 11.7 and ionized calcium at 6.5. Low blood glucoses running between 109 and 182. Plan for interventional radiology to do biopsy today but patient needs to be completely still for procedure. We have ordered Ativan 1 mg IV before the procedure and repeat 1 which will hopefully be able to complete the procedure. Librium was started yesterday. 12/18: Patient was unable to undergo biopsy with Ativan. Anesthesia has been consult to to assist with anesthesia for biopsy. Patient is been doing better on Librium. He was able to take his medications this morning. 12/19: Patient underwent the she biopsy today after anesthesia sedation, patient' s is at bedside patient has still ongoing hallucinations though it is milder, no restraints needed, he is not eating at all, hypercalcemia has improved, noted increasing sodium levels D5w was started and normal saline infusion is discontinued, patient still needs IV hydration secondary to lack of oral intake, dry mouth is noted, patient is noted to be febrile, possible aspiration, blood cultures are obtained for the temperature and started on Zosyn and Levaquin IV 12/20: Patient's mental status is slightly improved and he is able to converse minimally with family and states that he wants to go home. He is no longer fighting with the staff. His mental status is usually best in the morning and he does suffer from owners. Afternoon and Xanax has been added. Sodium 156 and chloride 121. Liver function tests are all elevated from yesterday. Patient continues with no oral intake and dietitian is recommending PEG tube. Speech therapy to evaluate this afternoon. Megace was started yesterday. Repeat chest x-ray shows component of volume overload, pulmonary venous hypertension and interstitial edema. Cardiomegaly. Lasix 40 mg IV push 1 now and twice daily. Temperature 101.4 last evening. Discussed with patient's and his son patient's poor prognosis and gave option of hospice care but at this time they are waiting for biopsy and it sounds like they are leaning towards aggressive treatment although they understand he does not have very long to live. 12/21: Patient remains confused but cooperative and follows some simple commands. PT is attempting to work with him today. CAT scan of the brain did not show any metastatic disease. Awaiting biopsy report. Brad discussion with patient' s son regarding his prognosis. 12/22: No change in patient's mental status. Continue to await biopsy report. IV fluids stopped. Blood culture came back Klebsiella oxytoca. Patient is already on Levaquin and Zosyn. Consult with Dr. Phan added. Objective - Vital Signs Vital signs: Vital Signs Temp 98.3 F 12/22/16 07:00 Pulse 68 12/22/16 07:00 Resp 18 12/22/16 07:00 BP 153/70 12/22/16 07:00 Pulse Ox 97 12/22/16 07:00 Intake & Output 12/21/16 12/22/16 12/22/16 18:59 06:59 18:59 Intake Total 40 120 Output Total 1150 700 Balance -1110 -580 Intake: Oral 40 120 Output: Urine 1150 700 Other: Voiding Method Indwelling Catheter Indwelling Catheter Indwelling Catheter # Bowel Movements 0 1 - Exam General appearance: average body habitus, cooperative (To contact to recent Ativan use), no acute distress - EENT Eyes: anicteric sclerae, PERRLA, normal appearance ENT: NA/AT - Respiratory Respiratory: bilateral: CTA, diminished - Cardiovascular Rhythm: regular Heart sounds: normal: S1, S2 Abnormal Heart Sounds: no systolic murmur, no diastolic murmur, no rub, no S3 Gallop, no S4 Gallop, no click, no other - Gastrointestinal General gastrointestinal: normal bowel sounds, soft - Integumentary Integumentary: normal, normal turgor - Neurologic Neurologic: CNII-XII intact - Psychiatric Awake but confused - Labs CBC & Chem 7: 12/21/16 07:39 12/21/16 07:39 Labs: Abnormal Lab Results - Last 24 Hours (Table) 12/21/16 12/21/16 12/22/16 Range/Units 16:56 20:04 07:23 POC Glucose (mg/dL) 282 H 283 H 226 H (75-99) mg/dL 12/22/16 Range/Units 11:27 POC Glucose (mg/dL) 257 H (75-99) mg/dL Microbiology - Last 24 Hours (Table) 12/19/16 17:00 Blood Culture Gram Stain - Final Blood Blood Culture - Final Klebsiella oxytoca 12/19/16 15:30 Blood Culture - Preliminary Blood No Growth after 48 hours 12/19/16 17:00 Blood Culture - Final Blood Assessment and Plan Plan: 1. Severe hypercalcemia secondary to metastatic lesions, patient requires IV hydration and IV Lasix 20 mg every 12 hours, folic acid will be placed, patient will be started on IV Aredia 60 mg 1, labs monitored, cortisol level will be obtained EKG would be monitored patient would be on remote telemetry. Lasix 40 mg IV every 12 hours. Patient is continued on IV fluids at 75 mL per hour 2. 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 Lung mass suspicious of. 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 Consults with Drs. Morales and Joaquín appreciated. Interventional radiology performed a biopsy with anesthesia. 5. Severe protein calorie malnutrition due to anorexia secondary to multifactorial causes including malignancy and hypercalcemia, patient currently is made nothing by mouth secondary to mental status and speech therapy is evaluating. The case added 6. Acute delirium tremens with history of alcohol abuse. Banana bag daily and CIWA precautions, Librium 7. Klebsiella bacteremia. Patient is currently on Levaquin and Zosyn. Consult with Dr. Phan. Repeat blood cultures to be obtained. 7. CODE STATUS full code no prolonged intubation GI prophylaxis and DVT prophylaxis Prognosis: Poor Discharge plan: To be determined Impression and plan of care have been directed as dictated by the signing physician. Sue Solis nurse practitioner acting as scribe for signing physician.
--- NOTE | 2016-12-22 12:41 | PN ---
DATE OF SERVICE: 12/22/2016 He has been hemodynamically stable. He is weak. His mucous membranes are dry. He is asking for water. On physical examination, blood pressure is 153/70, respiratory rate 18, pulse rate of 68, temperature 98.3. O2 sat on room air is 97%. HEENT reveals mucous membranes are dry. Chest reveals no wheezing. Decreased breath sounds. Cardiovascular system reveals an S1 and S2. Abdomen is soft. There is no pedal edema. IMPRESSION: 1. Metastatic cancer, possibly secondary to small cell cancer of the lung, however we will wait pathology on it. 2. Medical debility. 3. Dementia. 4. Hyperkalemia. 5. Dehydration. Continue supportive care. Continue empiric antibiotic coverage for possible postobstructive aspiration-type pneumonia. His prognosis at this time is extremely guarded. I did parliamentary counsel his regarding his condition and this approach.
[2016-12-22 12:57] LABS: Basophils % (A) 0 %; CH 29.4; CHCM 32.8; Eosinophils # (A) 0.2 k/uL (0-0.7); Eosinophils % (A) 3 %; HCT 44.7 % (39.0-53.0); HDW 3.02; HGB 14.5 gm/dL (13.0-17.5); Luc # (Auto) 0.14; Luc % (Auto) 2; Lymphocytes # (A) 0.8 k/uL (1.0-4.8); Lymphocytes % (A) 8 %; MCH 29.2 pg (25.0-35.0); MCHC 32.5 g/dL (31.0-37.0); MCV 89.9 fL (80.0-100.0); Mean Platelet Volume 7.5; Monocytes # (A) 0.3 k/uL (0-1.0); Monocytes % (A) 3 %; Neutrophils # (A) 7.7 k/uL (1.3-7.7); Neutrophils % (A) 84 %; RBC 4.97 m/uL (4.30-5.90); RDW 13.2 % (11.5-15.5); WBC 9.2 k/uL (3.8-10.6); WBC (Perox) 9.52
[2016-12-22 13:09] LABS: ALT 180 U/L (21-72); AST 55 U/L (17-59); Alkaline Phosphatase 434 U/L (38-126); Anion Gap 11 mmol/L; Blood Urea Nitrogen 34 mg/dL (9-20); Calcium 8.8 mg/dL (8.4-10.2); Carbon Dioxide 26 mmol/L (22-30); Chloride 109 mmol/L (98-107); Glucose 302 mg/dL (74-99); Non-African American GFR(MDRD) >60 (>60 ml/min/1.73 sqM); Potassium 3.3 mmol/L (3.5-5.1); Sodium 146 mmol/L (137-145); Total Bilirubin 1.9 mg/dL (0.2-1.3); Total Protein 6.2 g/dL (6.3-8.2)
[2016-12-22] MEDS: LEVOFLOXACIN 500MG-D5W PMX 500 MG in DEXTROSE/WATER 1 100ML.BAG IVPB SCH (16:21)
[2016-12-22] MEDS: [UNRECOGNIZED DRUG - REMARK] IV SCH ×3 (16:21)
[2016-12-22 17:10] LABS: Glucose,Whole Blood 272 mg/dL (75-99)
[2016-12-22] MEDS: TAMSULOSIN 0.4 MG CAP.ER.24H PO SCH (17:42)
[2016-12-22] MEDS: QUEtiapine 25 MG TAB PO SCH (17:42)
[2016-12-22 20:07] LABS: Glucose,Whole Blood 227 mg/dL (75-99)
[2016-12-23 01:38] VITALS: RESP 16
[2016-12-23] MEDS: [UNRECOGNIZED DRUG - REMARK] IV SCH ×6 (05:14→22:07)
[2016-12-23 07:15] LABS: Glucose,Whole Blood 215 mg/dL (75-99)
[2016-12-23 07:41] LABS: CH 29.5; CHCM 33.2; HCT 46.2 % (39.0-53.0); HDW 3.01; HGB 15.3 gm/dL (13.0-17.5); MCH 29.6 pg (25.0-35.0); MCHC 33.1 g/dL (31.0-37.0); MCV 89.4 fL (80.0-100.0); RBC 5.16 m/uL (4.30-5.90); RDW 13.1 % (11.5-15.5); WBC 8.9 k/uL (3.8-10.6)
[2016-12-23] MEDS: INSULIN LISPRO (humaLOG) 300 UNIT/3 ML VIAL SQ SCH ×4 (07:52→22:08)
[2016-12-23] MEDS: POTASSIUM CHLORIDE ER 20 MEQ TAB.ER PO SCH (07:54)
[2016-12-23] MEDS: PANTOPRAZOLE 40 MG/10 ML VIAL IVP SCH (07:54)
[2016-12-23] MEDS: GABAPENTIN 100 MG CAP PO SCH ×2 (07:54→22:07)
[2016-12-23] MEDS: MEGESTROL 400 MG/10 ML CUP PO SCH (07:55)
[2016-12-23] MEDS: TRIAMCINOLONE ACET 0.5% CREAM 15 GM TUBE TOPICAL SCH ×2 (07:55→22:08)
[2016-12-23] MEDS: ISOSORBIDE MONONITRATE ER 30 MG TAB.ER.24H PO SCH (07:56)
[2016-12-23] MEDS: LISINOPRIL 20 MG TAB PO SCH (07:57)
[2016-12-23] MEDS: FUROSEMIDE 40 MG TAB PO SCH (07:57)
[2016-12-23 08:01] LABS: ALT 139 U/L (21-72); AST 40 U/L (17-59); Alkaline Phosphatase 407 U/L (38-126); Anion Gap 9 mmol/L; Blood Urea Nitrogen 32 mg/dL (9-20); Calcium 8.9 mg/dL (8.4-10.2); Carbon Dioxide 28 mmol/L (22-30); Chloride 108 mmol/L (98-107); Glucose 233 mg/dL (74-99); Non-African American GFR(MDRD) >60 (>60 ml/min/1.73 sqM); Potassium 3.8 mmol/L (3.5-5.1); Sodium 145 mmol/L (137-145); Total Bilirubin 1.7 mg/dL (0.2-1.3); Total Protein 6.3 g/dL (6.3-8.2)
[2016-12-23] MEDS: PIPERACILLIN-TAZOBACTAM 3.375 GM in DEXTROSE/WATER 1 50ML.BAG IVPB SCH ×2 (08:01→18:59)
[2016-12-23] MEDS: ALPRAZolam 0.25 MG TAB PO SCH ×3 (08:01→22:10)
[2016-12-23 11:45] LABS: Glucose,Whole Blood 354 mg/dL (75-99)
--- NOTE | 2016-12-23 13:33 | P.PN ---
Subjective This is a pleasant 81-year-old lady patient of Dr. shantanu yoo. He has underlying history of diabetes mellitus type 2, CAD, BPH, who has chronic alcoholism. Apparently he is at baseline until he had quit alcohol completely 2 weeks ago December 04 for unknown reasons, patient has not had any blood, since then including beer. He was noticed by family to have altered mentation to include hallucinations this will, and auditory hallucinations, diminished appetite and increasing weakness. Patient had not eating for the past one to 4 hours, and only has slept 24 hours within the past 7 days, weight loss of 20 pounds, In the emergency room he was seen secondary to the acute dehydration, he was found to be mentally altered with hypercalcemia, dehydration, CAT scan of the chest showed significant abnormality include of 4.8 cm left upper lobe pulmonary mass with lower lobe metastatic pulmonary nodules up to 7 mm, conglomerate mediastinal lymph node extending from thoracic inlet down to subcarina and paraesophageal region measuring 13.4 cm craniocaudal small cell carcinoma is high in the differential, extrinsic mass effect mild did not O's right-sided airway or she is metastatic disease with soft tissue replacing T8 vertebral body brain CT shows mild to moderate diffuse age-related cerebral atrophy without any significant interval changes epi noted CT abdomen and pelvis shows additional all she is metastatic lesion 5.1 cm destroying the central portion of the left iliac bone with extra osseous soft tissue extension him a also 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 Yanes and Dr. Morales. Patient was started on ciwa protocol, Seroquel 25 hs for hallucinations, and IV Aredia for hypercalcemia IV Lasix for forced diuresis , iv hydration 12/16: Bone scan as limited sensitivity of the bone scan given the apparently lytic nature of the 2 osseous lesions seen on the CAT scans of the same day. The left iliac wing lesion shows up as a photopenic defect. The T8 lesion is not clearly appreciated. Patient is also followed by Dr. Yanes. Plan is for bone biopsy. Patient is very lethargic this morning thought to be due to Seroquel which will be given at supper time versus bedtime. IV fluids it 125 mL per hour and Lasix at 40 mg every 12 hours IV. 5: Calcium is improved to 11.7 and ionized calcium at 6.5. Low blood glucoses running between 109 and 182. Plan for interventional radiology to do biopsy today but patient needs to be completely still for procedure. We have ordered Ativan 1 mg IV before the procedure and repeat 1 which will hopefully be able to complete the procedure. Librium was started yesterday. 12/18: Patient was unable to undergo biopsy with Ativan. Anesthesia has been consult to to assist with anesthesia for biopsy. Patient is been doing better on Librium. He was able to take his medications this morning. 12/19: Patient underwent the she biopsy today after anesthesia sedation, patient' s is at bedside patient has still ongoing hallucinations though it is milder, no restraints needed, he is not eating at all, hypercalcemia has improved, noted increasing sodium levels D5w was started and normal saline infusion is discontinued, patient still needs IV hydration secondary to lack of oral intake, dry mouth is noted, patient is noted to be febrile, possible aspiration, blood cultures are obtained for the temperature and started on Zosyn and Levaquin IV 12/20: Patient's mental status is slightly improved and he is able to converse minimally with family and states that he wants to go home. He is no longer fighting with the staff. His mental status is usually best in the morning and he does suffer from owners. Afternoon and Xanax has been added. Sodium 156 and chloride 121. Liver function tests are all elevated from yesterday. Patient continues with no oral intake and dietitian is recommending PEG tube. Speech therapy to evaluate this afternoon. Megace was started yesterday. Repeat chest x-ray shows component of volume overload, pulmonary venous hypertension and interstitial edema. Cardiomegaly. Lasix 40 mg IV push 1 now and twice daily. Temperature 101.4 last evening. Discussed with patient's and his son patient's poor prognosis and gave option of hospice care but at this time they are waiting for biopsy and it sounds like they are leaning towards aggressive treatment although they understand he does not have very long to live. 12/21: Patient remains confused but cooperative and follows some simple commands. PT is attempting to work with him today. CAT scan of the brain did not show any metastatic disease. Awaiting biopsy report. Brad discussion with patient' s son regarding his prognosis. 12/22: No change in patient's mental status. Continue to await biopsy report. IV fluids stopped. Blood culture came back Klebsiella oxytoca. Patient is already on Levaquin and Zosyn. Consult with Dr. Phan added. 12/23: Shouldn't has been seen by Dr. Phan with recommendations to continue Levaquin and Zosyn. Patient now has 2 blood cultures with gram-positive, cocci in clusters. Repeat blood cultures have been ordered again. He is awake and alert and pleasantly confused. He has been cooperative with staff. Pathology report is not available at this time. Patient's family is planning to meet with oncology tomorrow to get report. Discussed today with the patient's that he has very poor prognosis and isn't really a candidate for any aggressive treatment. She understands this and is agreeable. Regarding discharge planning , she may be interested in the [facility]. Medical social work is working closely with her for discharge planning. Objective - Vital Signs Vital signs: Vital Signs Temp 98.1 F 12/23/16 07:00 Pulse 65 12/23/16 08:00 Resp 16 12/23/16 08:00 BP 133/65 12/23/16 07:00 Pulse Ox 96 12/23/16 07:00 Intake & Output 12/22/16 12/23/16 12/23/16 18:59 06:59 18:59 Intake Total 100 120 Output Total 500 Balance -500 100 120 Intake: IV 100 Piperacillin-Tazobactam 3 100 .375 gm In Dextrose/Water 1 50ml.bag @ 12.5 mls/hr IVPB Q8HR [facility] Rx#: [id number] Oral 120 Output: Urine 500 Uretheral (Ferrer) 500 Other: Voiding Method Indwelling Catheter Indwelling Catheter Indwelling Catheter # Bowel Movements 1 - Exam General appearance: average body habitus, cooperative (To contact to recent Ativan use), no acute distress - EENT Eyes: anicteric sclerae, PERRLA, normal appearance ENT: NA/AT - Respiratory Respiratory: bilateral: CTA, diminished - Cardiovascular Rhythm: regular Heart sounds: normal: S1, S2 Abnormal Heart Sounds: no systolic murmur, no diastolic murmur, no rub, no S3 Gallop, no S4 Gallop, no click, no other - Gastrointestinal General gastrointestinal: normal bowel sounds, soft - Integumentary Integumentary: normal, normal turgor - Neurologic Neurologic: CNII-XII intact - Psychiatric Awake but confused - Labs CBC & Chem 7: 12/23/16 06:53 12/23/16 06:53 Labs: Abnormal Lab Results - Last 24 Hours (Table) 12/22/16 12/22/16 12/22/16 Range/Units 12:40 12:40 17:05 Plt Count 112 L (150-450) k/uL Lymphocytes # 0.8 L (1.0-4.8) k/uL Sodium 146 H (137-145) mmol/L Potassium 3.3 L (3.5-5.1) mmol/L Chloride 109 H (98-107) mmol/L BUN 34 H (9-20) mg/dL Glucose 302 H (74-99) mg/dL POC Glucose (mg/dL) 272 H (75-99) mg/dL Total Bilirubin 1.9 H (0.2-1.3) mg/dL ALT 180 H (21-72) U/L Alkaline Phosphatase 434 H (38-126) U/L Total Protein 6.2 L (6.3-8.2) g/dL Albumin 2.9 L (3.5-5.0) g/dL 12/22/16 12/23/16 12/23/16 Range/Units 20:05 06:53 06:53 Plt Count 108 L (150-450) k/uL Lymphocytes # (1.0-4.8) k/uL Sodium (137-145) mmol/L Potassium (3.5-5.1) mmol/L Chloride 108 H (98-107) mmol/L BUN 32 H (9-20) mg/dL Glucose 233 H (74-99) mg/dL POC Glucose (mg/dL) 227 H (75-99) mg/dL Total Bilirubin 1.7 H (0.2-1.3) mg/dL ALT 139 H (21-72) U/L Alkaline Phosphatase 407 H (38-126) U/L Total Protein (6.3-8.2) g/dL Albumin 2.9 L (3.5-5.0) g/dL 12/23/16 12/23/16 Range/Units 07:07 11:37 Plt Count (150-450) k/uL Lymphocytes # (1.0-4.8) k/uL Sodium (137-145) mmol/L Potassium (3.5-5.1) mmol/L Chloride (98-107) mmol/L BUN (9-20) mg/dL Glucose (74-99) mg/dL POC Glucose (mg/dL) 215 H 354 H (75-99) mg/dL Total Bilirubin (0.2-1.3) mg/dL ALT (21-72) U/L Alkaline Phosphatase (38-126) U/L Total Protein (6.3-8.2) g/dL Albumin (3.5-5.0) g/dL Microbiology - Last 24 Hours (Table) 12/22/16 12:40 Blood Culture Gram Stain - Preliminary Blood 12/22/16 12:40 Blood Culture - Preliminary Blood 12/19/16 15:30 Blood Culture - Preliminary Blood No Growth after 72 hours Assessment and Plan Plan: 1. Severe hypercalcemia secondary to metastatic lesions, patient requires IV hydration and IV Lasix 20 mg every 12 hours, folic acid will be placed, patient will be started on IV Aredia 60 mg 1, labs monitored, cortisol level will be obtained EKG would be monitored patient would be on remote telemetry. Lasix 40 mg IV every 12 hours. Patient is continued on IV fluids at 75 mL per hour 2. 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 Consults with Drs. Morales and Joaquín appreciated. Interventional radiology performed a biopsy with anesthesia. 5. Lung mass with possible obstructive or gram-negative pneumonia. Patient is on Levaquin and Zosyn. 6. Severe protein calorie malnutrition due to anorexia secondary to multifactorial causes including malignancy and hypercalcemia, patient currently is made nothing by mouth secondary to mental status and speech therapy is evaluating. The case added 7. Acute delirium tremens with history of alcohol abuse. Banana bag daily and CIWA precautions, Librium 8. Klebsiella bacteremia. Patient is currently on Levaquin and Zosyn. Consult with Dr. Phan appreciated. Repeat blood cultures are now showing gram -positive cocci in clusters. Another set of cultures have been requested.. CODE STATUS full code no prolonged intubation GI prophylaxis and DVT prophylaxis Prognosis: Poor Discharge plan: To be determined Impression and plan of care have been directed as dictated by the signing physician. Sue Solis nurse practitioner acting as scribe for signing physician. Time with Patient: Greater than 30
--- NOTE | 2016-12-23 13:43 | P.CONS ---
History of Present Illness - Reason for Consult Consult date: 12/23/16 Klebsiella bacteremia - History of Present Illness This is an 81-year-old male who presented to the hospital back on December 15 due to altered mental status including hallucinations, auditory hallucinations, diminished appetite and increasing weakness. 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 Patient was initially admitted to the hospital with metabolic encephalopathy, severe hypercalcemia, pulmonary mass suspicious for metastatic pulmonary nodules, metastatic disease to the 8 vertebral body and left iliac bone. He has been followed by Dr. Yanes and Dr. Morales. He underwent a iliac bone biopsy on December 19 and pathology report is pending. Patient started running fevers on December 19 as well. Blood cultures have returned back positive for Klebsiella oxytoca. Subsequently, repeat blood cultures are showing gram-positive cocci in clusters. Patient has been on IV antibiotics the form of Levaquin and Zosyn. His calcium level is now normal, currently without leukocytosis. He does have elevated liver function tests. Patient has had very poor oral intake during this hospitalization and Megace has been started initially on Ativan but better controlled with Librium. His course has been complicated by acute delirium tremens. Patient has also voiced his family that he has wanted to and apparently made an attempt in 2016. At this time, family is waiting for pathology report and meeting with oncology expected to occur tomorrow. Review of Systems ROS unobtainable: due to mental status All systems: negative Constitutional: Reports anorexia, Reports chills, Reports fever, Reports poor appetite, Reports weakness, Reports weight loss Eyes: denies blurred vision, denies pain Ears, nose, mouth and throat: Denies headache, Denies sore throat Cardiovascular: Denies chest pain, Denies shortness of breath Respiratory: Denies cough Gastrointestinal: Denies abdominal pain, Denies diarrhea, Denies nausea, Denies vomiting Musculoskeletal: Denies myalgias Integumentary: Denies pruritus, Denies rash Neurological: Denies numbness, Denies weakness Psychiatric: Reports depression, Denies anxiety Endocrine: Denies fatigue, Denies weight change Past Medical History Past Medical History: Coronary Artery Disease (CAD), Chest Pain / Angina, Dementia, Diabetes Mellitus, Deep Vein Thrombosis (DVT), Eye Disorder, GERD/ Reflux, Hearing Disorder / Deafness, Memory Impairment, Myocardial Infarction ( IA), Osteoarthritis (OA), Pneumonia, Prostate Disorder, Vascular Disorder Additional Past Medical History / Comment(s): neuropathy, sinusitis, hernia Last Myocardial Infarction Date:: 11/28/13 History of Any Multi-Drug Resistant Organisms: None Reported Past Surgical History: Hernia Repair Additional Past Surgical History / Comment(s): 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 toe right foot, vein surgery both legs for phlebitis Past Anesthesia/Blood Transfusion Reactions: No Reported Reaction Date of Last Stent Placement:: November 2013 Past Psychological History: No Psychological Hx Reported Smoking Status: Former smoker Past Alcohol Use History: Abuse, Daily Past Drug Use History: None Reported - Past Family History Sister(s) Family Medical History: Cancer (Cervical) Son(s) Family Medical History: No Reported History Mother Family Medical History: Cancer Father Family Medical History: Congestive Heart Failure (CHF), CVA/TIA (Alcoholism) Medications and Allergies Home Medications Medication Instructions Recorded Confirmed Type Gabapentin [Neurontin] 100 mg PO BID 12/21/13 12/15/16 History Isosorbide Mononitrate [Imdur] 30 mg PO DAILY 12/21/13 12/15/16 History glyBURIDE [Diabeta] 2.5 mg PO AC-BID 12/21/13 12/15/16 History Aspirin EC [Ecotrin Low Dose] 81 mg PO DAILY 05/29/16 12/15/16 History Vit A,C & E/Lutein/Minerals 1 tab PO DAILY 05/29/16 12/15/16 History [Ocuvite with Lutein Tablet] amLODIPine BESYLATE/BENAZEPRIL 1 cap PO DAILY 05/29/16 12/15/16 History [Lotrel 10-40 mg Capsule] Allergies Allergy/AdvReac Type Severity Reaction Status Date / Time sulfamethoxazole Allergy Severe Anaphylaxis Verified 12/15/16 09:06 [From Bactrim] trimethoprim [From Bactrim] Allergy Severe Anaphylaxis Verified 12/15/16 09:06 Physical Exam Vitals: Vital Signs Temp Pulse Resp BP Pulse Ox 12/23/16 07:00 98.1 F 65 16 133/65 96 12/22/16 23:00 97.1 F L 58 L 16 114/59 97 12/22/16 14:59 97.9 F 65 18 102/57 96 Intake and Output 12/22/16 12/23/16 12/23/16 22:59 06:59 14:59 Intake Total 50 50 Output Total 500 Balance -450 50 Intake: IV 50 50 Piperacillin-Tazobactam 3 50 50 .375 gm In Dextrose/Water 1 50ml.bag @ 12.5 mls/hr IVPB Q8HR [facility] Rx#: [id number] Output: Urine 500 Uretheral (Ferrer) 500 Other: Voiding Method Indwelling Catheter Indwelling Catheter Gen: This is a thin 81-year-old male. He is resting in bed and appears to be in no acute distress. Patient is awake and alert HEENT: Head is atraumatic, normocephalic. Pupils equal, round. Sclerae is anicteric. NECK: Supple. No JVD. No lymphadenopathy. No thyromegaly. LUNGS: Clear to auscultation. No wheezes or rhonchi. No intercostal retractions. HEART: Regular rate and rhythm. No murmur. ABDOMEN: Soft. Bowel sounds are present. No masses. No tenderness. EXTREMITIES: No pedal edema. No calf tenderness. NEUROLOGICAL: Patient is awake, alert and oriented x1. He is able to follow simple commands. Results Results: Laboratory Results WBC 8.9 k/uL (3.8-10.6) 12/23/16 06:53 RBC 5.16 m/uL (4.30-5.90) 12/23/16 06:53 Hgb 15.3 gm/dL (13.0-17.5) 12/23/16 06:53 Hct 46.2 % (39.0-53.0) 12/23/16 06:53 MCV 89.4 fL (80.0-100.0) 12/23/16 06:53 MCH 29.6 pg (25.0-35.0) 12/23/16 06:53 MCHC 33.1 g/dL (31.0-37.0) 12/23/16 06:53 RDW 13.1 % (11.5-15.5) 12/23/16 06:53 Plt Count 108 k/uL (150-450) L 12/23/16 06:53 Neutrophils % 84 % 12/22/16 12:40 Lymphocytes % 8 % 12/22/16 12:40 Monocytes % 3 % 12/22/16 12:40 Eosinophils % 3 % 12/22/16 12:40 Basophils % 0 % 12/22/16 12:40 Neutrophils # 7.7 k/uL (1.3-7.7) 12/22/16 12:40 Lymphocytes # 0.8 k/uL (1.0-4.8) L 12/22/16 12:40 Monocytes # 0.3 k/uL (0-1.0) 12/22/16 12:40 Eosinophils # 0.2 k/uL (0-0.7) 12/22/16 12:40 Basophils # 0.0 k/uL (0-0.2) 12/22/16 12:40 PT 11.8 sec (9.0-12.0) 12/17/16 07:36 INR 1.2 (<1.1) 12/17/16 07:36 APTT 20.3 sec (22.0-30.0) L 12/15/16 08:25 Sodium 145 mmol/L (137-145) 12/23/16 06:53 Potassium 3.8 mmol/L (3.5-5.1) 12/23/16 06:53 Chloride 108 mmol/L (98-107) H 12/23/16 06:53 Carbon Dioxide 28 mmol/L (22-30) 12/23/16 06:53 Anion Gap 9 mmol/L 12/23/16 06:53 BUN 32 mg/dL (9-20) H 12/23/16 06:53 Creatinine 1.01 mg/dL (0.66-1.25) 12/23/16 06:53 Est GFR (MDRD) Af Amer >60 (>60 ml/min/1.73 sqM) 12/23/16 06:53 Est GFR (MDRD) Non-Af >60 (>60 ml/min/1.73 sqM) 12/23/16 06:53 Glucose 233 mg/dL (74-99) H 12/23/16 06:53 POC Glucose (mg/dL) 354 mg/dL (75-99) H 12/23/16 11:37 POC Glu [employer] Junie Thomas M 12/23/16 11:[address] Glu mg/dL 157 mg/dL 12/16/16 08:13 Hemoglobin A1c 7.1 % (4.2-6.1) H 12/16/16 08:13 Plasma Lactic Acid Hernán 2.1 mmol/L (0.7-2.0) H 12/19/16 15:22 Calcium 8.9 mg/dL (8.4-10.2) 12/23/16 06:53 Ionized Calcium Yannick 6.5 mg/dL (4.5-5.3) H* 12/17/16 07:36 Phosphorus 2.4 mg/dL (2.5-4.5) L 12/18/16 07:24 Magnesium 1.9 mg/dL (1.6-2.3) 12/15/16 09:55 Total Bilirubin 1.7 mg/dL (0.2-1.3) H 12/23/16 06:53 AST 40 U/L (17-59) 12/23/16 06:53 ALT 139 U/L (21-72) H 12/23/16 06:53 Alkaline Phosphatase 407 U/L (38-126) H 12/23/16 06:53 Ammonia <9 umol/L (<30) 12/15/16 09:55 Total Creatine Kinase 40 U/L (55-170) L 12/15/16 08:25 CK-MB (CK-2) 1.0 ng/mL (0.0-2.4) 12/15/16 08:25 CK-MB (CK-2) Rel Index 2.5 12/15/16 08:25 Troponin I <0.012 ng/mL (0.000-0.034) 12/15/16 08:25 Total Protein 6.3 g/dL (6.3-8.2) 12/23/16 06:53 Albumin 2.9 g/dL (3.5-5.0) L 12/23/16 06:53 Free PSA 1.47 ng/mL 12/16/16 08:13 % Free PSA 26 % 12/16/16 08:13 Total PSA 5.7 ng/mL (0.1 - 4.0) H 12/16/16 08:13 TSH 1.120 mIU/L (0.465-4.680) 12/16/16 08:13 Cortisol 27 ug/dL 12/15/16 16:48 Urine Color Yellow 12/15/16 09:04 Urine Appearance Clear (Clear) 12/15/16 09:04 Urine pH 5.0 (5.0-8.0) 12/15/16 09:04 Ur Specific [place] 1.021 (1.001-1.035) 12/15/16 09:04 Urine Protein 1+ (Negative) H 12/15/16 09:04 Urine Glucose (UA) 2+ (Negative) H 12/15/16 09:04 Urine Ketones Trace (Negative) H 12/15/16 09:04 Urine Blood Moderate (Negative) H 12/15/16 09:04 Urine Nitrite Negative (Negative) 12/15/16 09:04 Urine Bilirubin Negative (Negative) 12/15/16 09:04 Urine Urobilinogen <2.0 mg/dL (<2.0) 12/15/16 09:04 Ur Leukocyte Esterase Negative (Negative) 12/15/16 09:04 Urine RBC 21 /hpf (0-5) H 12/15/16 09:04 Urine WBC 4 /hpf (0-5) 12/15/16 09:04 Urine Bacteria Rare /hpf (None) H 12/15/16 09:04 Urine Mucus Rare /hpf (None) H 12/15/16 09:04 Urine Opiates Screen Not Detected (NotDetected) 12/15/16 09:04 Ur Oxycodone Screen Not Detected (NotDetected) 12/15/16 09:04 Urine Methadone Screen Not Detected (NotDetected) 12/15/16 09:04 Ur Propoxyphene Screen Not Detected (NotDetected) 12/15/16 09:04 Ur Barbiturates Screen Not Detected (NotDetected) 12/15/16 09:04 U Tricyclic Antidepress Not Detected (NotDetected) 12/15/16 09:04 Ur Phencyclidine Scrn Not Detected (NotDetected) 12/15/16 09:04 Ur Amphetamines Screen Not Detected (NotDetected) 12/15/16 09:04 U Methamphetamines Scrn Not Detected (NotDetected) 12/15/16 09:04 U Benzodiazepines Scrn Not Detected (NotDetected) 12/15/16 09:04 Urine Cocaine Screen Not Detected (NotDetected) 12/15/16 09:04 U Marijuana (THC) Screen Not Detected (NotDetected) 12/15/16 09:04 CBC & Chem 7: 12/23/16 06:53 12/23/16 06:53 Labs: Abnormal Lab Results - Last 24 Hours (Table) 12/22/16 12/22/16 12/22/16 Range/Units 11:27 12:40 12:40 Plt Count 112 L (150-450) k/uL Lymphocytes # 0.8 L (1.0-4.8) k/uL Sodium 146 H (137-145) mmol/L Potassium 3.3 L (3.5-5.1) mmol/L Chloride 109 H (98-107) mmol/L BUN 34 H (9-20) mg/dL Glucose 302 H (74-99) mg/dL POC Glucose (mg/dL) 257 H (75-99) mg/dL Total Bilirubin 1.9 H (0.2-1.3) mg/dL ALT 180 H (21-72) U/L Alkaline Phosphatase 434 H (38-126) U/L Total Protein 6.2 L (6.3-8.2) g/dL Albumin 2.9 L (3.5-5.0) g/dL 12/22/16 12/22/16 12/23/16 Range/Units 17:05 20:05 06:53 Plt Count 108 L (150-450) k/uL Lymphocytes # (1.0-4.8) k/uL Sodium (137-145) mmol/L Potassium (3.5-5.1) mmol/L Chloride (98-107) mmol/L BUN (9-20) mg/dL Glucose (74-99) mg/dL POC Glucose (mg/dL) 272 H 227 H (75-99) mg/dL Total Bilirubin (0.2-1.3) mg/dL ALT (21-72) U/L Alkaline Phosphatase (38-126) U/L Total Protein (6.3-8.2) g/dL Albumin (3.5-5.0) g/dL 12/23/16 12/23/16 Range/Units 06:53 07:07 Plt Count (150-450) k/uL Lymphocytes # (1.0-4.8) k/uL Sodium (137-145) mmol/L Potassium (3.5-5.1) mmol/L Chloride 108 H (98-107) mmol/L BUN 32 H (9-20) mg/dL Glucose 233 H (74-99) mg/dL POC Glucose (mg/dL) 215 H (75-99) mg/dL Total Bilirubin 1.7 H (0.2-1.3) mg/dL ALT 139 H (21-72) U/L Alkaline Phosphatase 407 H (38-126) U/L Total Protein (6.3-8.2) g/dL Albumin 2.9 L (3.5-5.0) g/dL Microbiology - Last 24 Hours (Table) 12/22/16 12:40 Blood Culture Gram Stain - Preliminary Blood 12/22/16 12:40 Blood Culture - Preliminary Blood 12/19/16 15:30 Blood Culture - Preliminary Blood No Growth after 72 hours Assessment and Plan Plan: This is an 81-year-old male who presented to the hospital with mental status changes found to have hypercalcemia, large pulmonary mass with probable metastatic disease to T8 and left iliac bone status post biopsy and pending report. Patient developed fever on December 19 and around the same time developed fevers and blood cultures returned back positive for Klebsiella oxytoca. He has been on good antibiotic coverage with IV Zosyn and Levaquin for probable obstructive or gram-negative pneumonia. Repeat blood cultures are now showing gram-positive cocci in clusters. A third set of blood cultures have been requested. Continue supportive care. Further recommendations as patient progresses. The above dictated assessment and findings were discussed with Dr. Phan. The impression and plan of care have been directed as dictated. Sue Solis nurse practitioner acting as scribe for Dr. Phan.
--- NOTE | 2016-12-23 14:09 | P.PN ---
Objective - Vital Signs Vital signs: Vital Signs Temp 98.1 F 12/23/16 07:00 Pulse 65 12/23/16 08:00 Resp 16 12/23/16 08:00 BP 133/65 12/23/16 07:00 Pulse Ox 96 12/23/16 07:00 Intake & Output 12/22/16 12/23/16 12/23/16 18:59 06:59 18:59 Intake Total 100 120 Output Total 500 Balance -500 100 120 Intake: IV 100 Piperacillin-Tazobactam 3 100 .375 gm In Dextrose/Water 1 50ml.bag @ 12.5 mls/hr IVPB Q8HR HONEY Rx#: [id number] Oral 120 Output: Urine 500 Uretheral (Ferrer) 500 Other: Voiding Method Indwelling Catheter Indwelling Catheter Indwelling Catheter # Bowel Movements 1 - Exam Gen.: More alert today, conversational, attempting swallow evaluation Cardiovascular: Regular rate and rhythm, S1/S2 Lungs: Diminished breath sounds bilaterally no wheezes rales or rhonchi Abdomen: Soft nontender nondistended positive bowel sounds Extremities no edema - Labs CBC & Chem 7: 12/23/16 06:53 12/23/16 06:53 Labs: Abnormal Lab Results - Last 24 Hours (Table) 12/22/16 12/22/16 12/23/16 Range/Units 17:05 20:05 06:53 Plt Count 108 L (150-450) k/uL Chloride (98-107) mmol/L BUN (9-20) mg/dL Glucose (74-99) mg/dL POC Glucose (mg/dL) 272 H 227 H (75-99) mg/dL Total Bilirubin (0.2-1.3) mg/dL ALT (21-72) U/L Alkaline Phosphatase (38-126) U/L Albumin (3.5-5.0) g/dL 12/23/16 12/23/16 12/23/16 Range/Units 06:53 07:07 11:37 Plt Count (150-450) k/uL Chloride 108 H (98-107) mmol/L BUN 32 H (9-20) mg/dL Glucose 233 H (74-99) mg/dL POC Glucose (mg/dL) 215 H 354 H (75-99) mg/dL Total Bilirubin 1.7 H (0.2-1.3) mg/dL ALT 139 H (21-72) U/L Alkaline Phosphatase 407 H (38-126) U/L Albumin 2.9 L (3.5-5.0) g/dL Microbiology - Last 24 Hours (Table) 12/22/16 12:40 Blood Culture Gram Stain - Preliminary Blood 12/22/16 12:40 Blood Culture - Preliminary Blood 12/19/16 15:30 Blood Culture - Preliminary Blood No Growth after 72 hours Assessment and Plan Plan: Toxic metabolic encephalopathy, improving Delirium tremens Extensive conglomerate mediastinal lymphadenopathy Extrinsic mass effect on the right mainstem bronchus - concerning for small cell lung cancer, pathology pending Left lower lobe pulmonary mass 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 Hyperglycemia Hypernatremia Failure to thrive O2 to maintain saturation greater than or equal to 88% Awaiting biopsy results, family is planning to meet with oncology team tomorrow to discuss results and possible treatment options. The patient has very poor functional status and hospice is appropriate at this time. Oncology recommendations GI and DVT prophylaxis
[2016-12-23 16:52] LABS: Glucose,Whole Blood 270 mg/dL (75-99)
[2016-12-23] MEDS ORDERED: IV VANCOMYCIN PER PHARMACY 1 EACH MISC MISCELLANE PRN (18:15)
[2016-12-23] MEDS ORDERED: VANCOMYCIN 1,500 MG in SODIUM CHLORIDE 0.9% 250 ML IVPB STA (18:25)
[2016-12-23] MEDS: QUEtiapine 25 MG TAB PO SCH (18:41)
[2016-12-23] MEDS: LEVOFLOXACIN 500MG-D5W PMX 500 MG in DEXTROSE/WATER 1 100ML.BAG IVPB SCH (18:59)
[2016-12-23 21:38] LABS: Glucose,Whole Blood 201 mg/dL (75-99)
[2016-12-23] MEDS: TAMSULOSIN 0.4 MG CAP.ER.24H PO SCH (22:07)
--- NOTE | 2016-12-23 23:24 | P.CON ---
Consult Note - . Consult date: 12/23/16 Assessment/Plan:: This is an 81-year-old male who presented to the hospital back on December 15 due to altered mental status including hallucinations, auditory hallucinations, diminished appetite and increasing weakness. 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 Patient was initially admitted to the hospital with metabolic encephalopathy, severe hypercalcemia, pulmonary mass suspicious for metastatic pulmonary nodules, metastatic disease to the 8 vertebral body and left iliac bone. He has been followed by Dr. Yanes and Dr. Morales. He underwent a iliac bone biopsy on December 19 and pathology report is pending. Patient started running fevers on December 19 as well. Blood cultures have returned back positive for Klebsiella oxytoca. Subsequently, repeat blood cultures are showing gram-positive cocci in clusters. Patient has been on IV antibiotics the form of Levaquin and Zosyn. His calcium level is now normal, currently without leukocytosis. He does have elevated liver function tests. Patient has had very poor oral intake during this hospitalization and Megace has been started initially on Ativan but better controlled with Librium. His course has been complicated by acute delirium tremens. Patient has also voiced his family that he has wanted to and apparently made an attempt in 2016. At this time, family is waiting for pathology report and meeting with oncology expected to occur tomorrow.Please see the consult note is dictated by nurse practitioner Mrs. Sue Solis. The patient's son Harinder is present. The patient apparently has told the family he cannot be brought to the hospital until he is unconscious and cannot fight. In this generally is what occurred at this admission. As noted appears to have metastatic lung carcinoma. This been having significant leukocytosis. His appetite is poor. His level of confusion is slightly improved now that he has somewhat improved from his delirium tremens. He sitting upright in the chair. In wondering when he gets to go home. The son has many questions that will be much better answered once his pathology is available. At that time likely decision will be for hospice care given the patient's unwillingness to have extensive amount of medical care up till now.I agree with evaluation, assessment and plan testicular nurse practitioner Mrs. Sue Solis.
[2016-12-23] MEDS: cefTRIAXone 2,000 MG in SODIUM CHLORIDE 0.9% 100 ML IVPB SCH (23:51)
[2016-12-24 07:02] LABS: Glucose,Whole Blood 244 mg/dL (75-99)
[2016-12-24] MEDS: cefTRIAXone 2,000 MG in SODIUM CHLORIDE 0.9% 100 ML IVPB SCH (07:54)
[2016-12-24] MEDS: MEGESTROL 400 MG/10 ML CUP PO SCH ×2 (07:55→08:20)
[2016-12-24] MEDS: ALPRAZolam 0.25 MG TAB PO SCH ×3 (07:55→18:00)
[2016-12-24] MEDS: PANTOPRAZOLE 40 MG/10 ML VIAL IVP SCH (07:55)
[2016-12-24] MEDS: GABAPENTIN 100 MG CAP PO SCH ×2 (07:56→08:19)
[2016-12-24] MEDS: ISOSORBIDE MONONITRATE ER 30 MG TAB.ER.24H PO SCH ×2 (07:57→08:20)
[2016-12-24] MEDS: TRIAMCINOLONE ACET 0.5% CREAM 15 GM TUBE TOPICAL SCH (07:57)
[2016-12-24] MEDS: FUROSEMIDE 40 MG TAB PO SCH ×2 (07:57→08:19)
[2016-12-24] MEDS: LISINOPRIL 20 MG TAB PO SCH ×2 (07:57→08:20)
[2016-12-24] MEDS: POTASSIUM CHLORIDE ER 20 MEQ TAB.ER PO SCH ×2 (07:57→08:20)
[2016-12-24] MEDS: INSULIN LISPRO (humaLOG) 300 UNIT/3 ML VIAL SQ SCH ×3 (07:58→18:03)
[2016-12-24] MEDS ORDERED: VANCOMYCIN 1,250 MG in SODIUM CHLORIDE 0.9% 250 ML IVPB SCH (10:00)
[2016-12-24 11:27] LABS: Glucose,Whole Blood 236 mg/dL (75-99)
--- NOTE | 2016-12-24 11:32 | P.DS ---
Providers Date of admission: 12/15/16 12:35 Expected date of discharge: 12/24/16 Attending physician: Angela Rahman Consults: 12/18/16 13:24 Consult Physician Routine Consulting Provider: Anesthesia,Services Consult Reason/Comments: anesthesia for biopsy Do you want consulting provider notified?: Yes 12/22/16 16:10 Consult Physician Routine Consulting Provider: Milad Phan Consult Reason/Comments: Positive Blood Cultures Do you want consulting provider notified?: Yes Primary care physician: Celeste [facility] Course: This is a pleasant 81-year-old lady patient of Dr. shantanu yoo. He has underlying history of diabetes mellitus type 2, CAD, BPH, who has chronic alcoholism. Apparently he is at baseline until he had quit alcohol completely 2 weeks ago December 04 for unknown reasons, patient has not had any blood, since then including beer. He was noticed by family to have altered mentation to include hallucinations this will, and auditory hallucinations, diminished appetite and increasing weakness. Patient had not eating for the past one to 4 hours, and only has slept 24 hours within the past 7 days, weight loss of 20 pounds, In the emergency room he was seen secondary to the acute dehydration, he was found to be mentally altered with hypercalcemia, dehydration, CAT scan of the chest showed significant abnormality include of 4.8 cm left upper lobe pulmonary mass with lower lobe metastatic pulmonary nodules up to 7 mm, conglomerate mediastinal lymph node extending from thoracic inlet down to subcarina and paraesophageal region measuring 13.4 cm craniocaudal small cell carcinoma is high in the differential, extrinsic mass effect mild did not O's right-sided airway or she is metastatic disease with soft tissue replacing T8 vertebral body brain CT shows mild to moderate diffuse age-related cerebral atrophy without any significant interval changes epi noted CT abdomen and pelvis shows additional all she is metastatic lesion 5.1 cm destroying the central portion of the left iliac bone with extra osseous soft tissue extension him a also 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 Yanes and Dr. Morales. Patient was started on ciwa protocol, Seroquel 25 hs for hallucinations, and IV Aredia for hypercalcemia IV Lasix for forced diuresis , iv hydration 12/16: Bone scan as limited sensitivity of the bone scan given the apparently lytic nature of the 2 osseous lesions seen on the CAT scans of the same day. The left iliac wing lesion shows up as a photopenic defect. The T8 lesion is not clearly appreciated. Patient is also followed by Dr. Yanes. Plan is for bone biopsy. Patient is very lethargic this morning thought to be due to Seroquel which will be given at supper time versus bedtime. IV fluids it 125 mL per hour and Lasix at 40 mg every 12 hours IV. 12/17: Calcium is improved to 11.7 and ionized calcium at 6.5. Low blood glucoses running between 109 and 182. Plan for interventional radiology to do biopsy today but patient needs to be completely still for procedure. We have ordered Ativan 1 mg IV before the procedure and repeat 1 which will hopefully be able to complete the procedure. Librium was started yesterday. 12/18: Patient was unable to undergo biopsy with Ativan. Anesthesia has been consult to to assist with anesthesia for biopsy. Patient is been doing better on Librium. He was able to take his medications this morning. 12/19: Patient underwent the she biopsy today after anesthesia sedation, patient' s is at bedside patient has still ongoing hallucinations though it is milder, no restraints needed, he is not eating at all, hypercalcemia has improved, noted increasing sodium levels D5w was started and normal saline infusion is discontinued, patient still needs IV hydration secondary to lack of oral intake, dry mouth is noted, patient is noted to be febrile, possible aspiration, blood cultures are obtained for the temperature and started on Zosyn and Levaquin IV 12/20: Patient's mental status is slightly improved and he is able to converse minimally with family and states that he wants to go home. He is no longer fighting with the staff. His mental status is usually best in the morning and he does suffer from owners. Afternoon and Xanax has been added. Sodium 156 and chloride 121. Liver function tests are all elevated from yesterday. Patient continues with no oral intake and dietitian is recommending PEG tube. Speech therapy to evaluate this afternoon. Megace was started yesterday. Repeat chest x-ray shows component of volume overload, pulmonary venous hypertension and interstitial edema. Cardiomegaly. Lasix 40 mg IV push 1 now and twice daily. Temperature 101.4 last evening. Discussed with patient's and his son patient's poor prognosis and gave option of hospice care but at this time they are waiting for biopsy and it sounds like they are leaning towards aggressive treatment although they understand he does not have very long to live. 12/21: Patient remains confused but cooperative and follows some simple commands. PT is attempting to work with him today. CAT scan of the brain did not show any metastatic disease. Awaiting biopsy report. Brad discussion with patient' s son regarding his prognosis. 12/22: No change in patient's mental status. Continue to await biopsy report. IV fluids stopped. Blood culture came back Klebsiella oxytoca. Patient is already on Levaquin and Zosyn. Consult with Dr. Phan added. 12/23: Shouldn't has been seen by Dr. Phan with recommendations to continue Levaquin and Zosyn. Patient now has 2 blood cultures with gram-positive, cocci in clusters. Repeat blood cultures have been ordered again. He is awake and alert and pleasantly confused. He has been cooperative with staff. Pathology report is not available at this time. Patient's family is planning to meet with oncology tomorrow to get report. Discussed today with the patient's that he has very poor prognosis and isn't really a candidate for any aggressive treatment. She understands this and is agreeable. Regarding discharge planning , she may be interested in the [facility]. Medical social work is working closely with her for discharge planning. 12/24: Family met with Dr. Morales today results of the pathology report. He is decided to discharge the patient to [facility]. All medications are provided, he will be discharged today in stable condition. Discharge diagnoses: 1. Severe hypercalcemia secondary to metastatic lesions 2. 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 5. Lung mass with possible obstructive or gram-negative pneumonia. 6. Severe protein calorie malnutrition due to anorexia secondary to multifactorial causes including malignancy and hypercalcemia 7. Acute delirium tremens with history of alcohol abuse. 8. Klebsiella bacteremia. Discharge plan: [facility] The above impression and plan of care have been discussed and directed by signing physician. Ronit Maniaci nurse practitioner acting as scribe for signing physician. cc: Dr. Combs Patient Condition at Discharge: Undetermined Plan - Discharge Summary New Discharge Prescriptions: Atropine Ophth Soln 1% 5Ml [Isopto Atropine 1% 5Ml] 2 drops PO Q4HR PRN #1 bottle PRN Reason: Secretions LORazepam ORAL CONC [Ativan Intensol] 2 mg PO Q4HR PRN #30 ml PRN Reason: Anxiety MORPHINE ORAL SOLN 20mg/mL [Roxanol Oral Soln Conc 20MG/ML] 5 mg PO Q4H PRN #30 ml PRN Reason: Pain QUEtiapine [SEROquel] 25 mg PO 1800 #30 tab chlordiazePOXIDE HCl [Librium] 10 mg PO BID #60 cap Discharge Medication List Gabapentin [Neurontin] 100 mg PO BID 12/21/13 [History] Isosorbide Mononitrate [Imdur] 30 mg PO DAILY 12/21/13 [History] Atropine Ophth Soln 1% 5Ml [Isopto Atropine 1% 5Ml] 2 drops PO Q4HR PRN #1 bottle 12/24/16 [Rx] LORazepam ORAL CONC [Ativan Intensol] 2 mg PO Q4HR PRN #30 ml 12/24/16 [Rx] MORPHINE ORAL SOLN 20mg/mL [Roxanol Oral Soln Conc 20MG/ML] 5 mg PO Q4H PRN #30 ml 12/24/16 [Rx] QUEtiapine [SEROquel] 25 mg PO 1800 #30 tab 12/24/16 [Rx] chlordiazePOXIDE HCl [Librium] 10 mg PO BID #60 cap 12/24/16 [Rx] Follow up Appointment(s)/Referral(s): Celeste Combs MD [Primary Care Provider] - As Needed Discharge Disposition: [facility]
--- NOTE | 2016-12-24 15:14 | PN ---
DATE OF SERVICE: 12/24/2016 HISTORY OF PRESENT ILLNESS: Patient is an 81-year-old male who came in with altered mental status changes. He is a heavy drinker, about a fifth a day including beer. He had initially stopped drinking for about 2 weeks, lost 20 pounds in over 2 weeks' time and was going through withdrawals. Patient had CAT scan of the chest done that showed mass effect in the right mainstream bronchus with osseous metastatic disease with soft tissue replacing T8 vertebral body. He smokes 2 packs a day for many years. He was admitted with toxic metabolic encephalopathy with acute delirium tremens. Due to patient's extensive metastatic disease, plans are for him to be transferred to hospice. He is seen today. He is denying pain. He is denying any trouble at all. He is confused, frequently is swearing. He appears in no acute respiratory distress. He is denying any problems at this time. No family is present at this time. On physical examination, vital signs show temperature of 98.3, heart rate 61, respiratory rate 16, blood pressure is 158/75. Oxygen saturation on room air is 96%. Labs for today showed glucose 236. Blood showed coag-negative staph and Klebsiella oxytoca. GENERAL: Patient is an 81-year-old male who appears in no acute respiratory distress at this time. HEENT: Pupils are reactive. Mucous membranes slightly dry. Neck is supple. Trach is midline. Lung sounds are diminished throughout. CARDIOVASCULAR: S1 and S2 is heard. ABDOMEN: Soft. Bowel sounds heard. EXTREMITIES: No edema. NEUROLOGIC: He is confused. IMPRESSION: 1. Toxic metabolic encephalopathy. 2. Delirium tremens, improved. 3. Extensive conglomerate mediastinal lymphadenopathy. 4. Extrinsic mass effect on right mainstem bronchus concerning for small lung cancer. 5. Left lower lobe pulmonary mass. 6. 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 7. Alcohol abuse. 8. Nicotine abuse history. 9. Starvation ketosis. 10. Hypercalcemia, likely paraneoplastic concern for small cell cancer. 11. Hyperglycemia. 12. Hypernatremia. 13. Failure to thrive. PLAN: Oxygen as needed to keep sats 88% or better. He appears to be being transferred to hospice house where he will have pain medicine and oxygen as needed. Will continue with supportive care until discharge.
[2016-12-24 15:56] VITALS: BP 129/62; PULSE 75; TEMP 98
[2016-12-24] MEDS: [UNRECOGNIZED DRUG - REMARK] IV SCH ×6 (16:31→17:36)
[2016-12-24 17:04] LABS: Glucose,Whole Blood 197 mg/dL (75-99)
--- NOTE | 2016-12-25 00:16 | P.PN ---
Subjective Pt was alert, but remains confused and intermittently combative. He was refusing his breakfast and medications when seen today Objective - Vital Signs Vital signs: Vital Signs Temp 98 F 12/24/16 15:00 Pulse 75 12/24/16 16:00 Resp 16 12/24/16 16:00 BP 129/62 12/24/16 15:00 Pulse Ox 90 L 12/24/16 15:00 Intake & Output 12/24/16 12/24/16 12/25/16 06:59 18:59 06:59 Intake Total 590 Output Total 400 1200 Balance 190 -1200 Weight 67 kg Intake: Oral 590 Output: Urine 400 1200 Uretheral (Ferrer) 400 Other: Voiding Method Indwelling Catheter Indwelling Catheter # Bowel Movements 1 - Constitutional General appearance: Present: no acute distress - EENT Eyes: Present: EOMI, PERRLA ENT: Present: hearing grossly normal, normal oropharynx - Respiratory Respiratory: left: diminished - Cardiovascular Rhythm: regular Heart sounds: normal: S1, S2 - Gastrointestinal General gastrointestinal: Present: normal bowel sounds, soft - Integumentary Integumentary: Present: normal - Neurologic Neurologic: Present: CNII-XII intact - Musculoskeletal Musculoskeletal: Present: strength equal bilaterally - Psychiatric Psychiatric Comment(s): confused, agitated - Labs CBC & Chem 7: 12/23/16 06:53 12/23/16 06:53 Labs: Abnormal Lab Results - Last 24 Hours (Table) 12/24/16 12/24/16 12/24/16 Range/Units 06:58 11:22 16:59 POC Glucose (mg/dL) 244 H 236 H 197 H (75-99) mg/dL Microbiology - Last 24 Hours (Table) 12/23/16 11:07 Blood Culture - Preliminary Blood No Growth after 24 hours 12/19/16 15:30 Blood Culture - Preliminary Blood No Growth after 120 hours 12/23/16 11:00 Blood Culture - Preliminary Blood No Growth after 24 hours 12/22/16 12:40 Blood Culture Gram Stain - Preliminary Blood Blood Culture - Preliminary Coagulase Negative Staph - Imaging and Cardiology CT Scan - head: report reviewed Assessment and Plan (1) Bone lesion Narrative/Plan: Biopsy was positive for squamous cell carcinoma, with IHC and clinical picture c/w lung primary, The results and implications were discussed in detail with the and sons , as the pt himself was confused. He has stage IV disease, which is not curable. The mainstay of treatment would be systemic therapy, with objectives of prolongation of life and palliation of symptoms. The pt is quite debilitated, and is not a good candidate for conventional chemo in my opinion. I discussed testing for PDL-1, and targeted therapy if positive. Side effects and average improvement in survival with this modality ( 3-4 mths) was also discussed. Comfort care and various aspects of Hospice were also discussed in detail. His underlying medical conditions, including probable underlying dementia and current persistent confusion and agitation, would also adversely affect his ability to have and tolerate treatment. They informed me that the pt had previously stated many times that he would not want active treatment in a situation such as this. They are therefore inclined for comfort care, which is quite reasonable in my opinion. Hospice will be consulted About 35 mins spent with counselling and care coordination Status: Acute (2) Lung mass Status: Acute (3) Hypercalcemia Narrative/Plan: Resolved Status: Acute
== END 2016-12-24 18:40 | disposition hospice, inpatient (51) | DRG 477 ==
LOC: EC 08:09 → 5ONC 12:35
PROVIDERS: ADMIT Family Medicine; ATTEND Family Medicine
PROC: 0QB33ZX Excision of Left Pelvic Bone, Percutaneous Approach, Diagnostic (ICD-10-PCS; principal; 2016-12-19 10:35)
DX: C79.51 Secondary malignant neoplasm of bone (principal); E43 Unspecified severe protein-calorie malnutrition; G92 Toxic encephalopathy; F10.231 Alcohol dependence with withdrawal delirium; C77.1 Secondary and unspecified malignant neoplasm of intrathoracic lymph nodes; E87.0 Hyperosmolality and hypernatremia; E83.52 Hypercalcemia; R78.81 Bacteremia; E88.89 Other specified metabolic disorders; F03.90 Unspecified dementia, unspecified severity, without behavioral disturbance, psychotic disturbance, mood disturbance, and anxiety; B96.1 Klebsiella pneumoniae [K. pneumoniae] as the cause of diseases classified elsewhere; C34.12 Malignant neoplasm of upper lobe, left bronchus or lung; R17 Unspecified jaundice; R64 Cachexia; E11.65 Type 2 diabetes mellitus with hyperglycemia; E87.70 Fluid overload, unspecified; E87.5 Hyperkalemia; E86.0 Dehydration; F17.210 Nicotine dependence, cigarettes, uncomplicated; F29 Unspecified psychosis not due to a substance or known physiological condition; H91.90 Unspecified hearing loss, unspecified ear; I25.10 Atherosclerotic heart disease of native coronary artery without angina pectoris; I25.2 Old myocardial infarction; I27.2 Other secondary pulmonary hypertension; K21.9 Gastro-esophageal reflux disease without esophagitis; N40.0 Benign prostatic hyperplasia without lower urinary tract symptoms; R62.7 Adult failure to thrive; Z51.5 Encounter for palliative care; Z78.1 Physical restraint status; Z79.899 Other long term (current) drug therapy; Z82.49 Family history of ischemic heart disease and other diseases of the circulatory system; Z86.72 Personal history of thrombophlebitis; Z88.2 Allergy status to sulfonamides
CPT/HCPCS: 20225; 36415; 51702; 70450; 70460; 71010; 71020; 71260; 74176; 76380; 77012; 78306; 80053; 80306; 81001; 82140; 82330; 82533; 82550; 82553; 83036; 83605; 83735; 84100; 84153; 84154; 84443; 84484; 85025; 85027; 85610; 85730; 87040; 87077; 87186; 88305; 88341; 88342; 93005; 94760; 96365; 96366; 99285